=== PATIENT | male | born 1950 | race African-American/Black ===

== ENCOUNTER 2017-10-24 11:04 | Inpatient (IN) | payer MEDICARE ==
[2017-10-24] MEDS ORDERED: Heparin 5,000 UNITS/ML VIAL ONE ×4 (11:47→16:35)
[2017-10-24] MEDS ORDERED: Heparin 25,000 units/D5W 500 ML ONE (11:47)
[2017-10-24 11:57] LABS: #Basophils 0.1 thou/uL (0.0-0.2); #Eosinphils 0.1 thou/uL (0.0-0.7); #Lymphocytes 2.5 thou/uL (1.20-3.40); #Monocytes 0.4 thou/uL (0.11-0.59); #Neutrophils 5.1 thou/uL (1.40-6.50); %Basophils 0.7 % (0.0-1.0); %Eosinophils 1.3 % (0.0-10.0); %Lymphocytes 30.5 % (21.0-51.0); %Monocytes 4.7 % (0.0-10.0); %Neutrophils 62.8 % (42.0-75.0); Hemoglobin 12.8 g/dL (14.0-18.0); Mean Corpuscular HGB CONC 32.6 g/dL (32.0-36.0); Mean Corpuscular Hemoglobin 28.2 pg (27.0-31.0); Mean Corpuscular Volume 86.5 fl (80.0-94.0); Mean Platelet Volume 8.2 fL (7.4-10.4); Platelet Count 232 thou/uL (130-400); RBC Distribution Width 13.2 % (11.5-14.5); Red Blood Cell (RBC) Count 4.53 mill/uL (4.70-6.10); White Blood Cell (WBC) Count 8.2 thou/uL (4.8-10.8)
[2017-10-24 12:04] LABS: INR-International Normal Ratio 1.1; PTT 26.1 SEC (22.9-36.1); Prothrombin Time 14.3 SEC (12.0-14.7)
[2017-10-24] MEDS ORDERED: Heparin 25,000 units/D5W 500 ML IV SCH (12:15)
[2017-10-24] MEDS ORDERED: Heparin 10,000 UNITS/ 10 ML VIAL SLOW IVP SCH (12:15)
[2017-10-24 12:17] LABS: ALT (SGPT) 21 U/L (8-55); AST (SGOT) 18 U/L (5-34); Albumin 4.4 g/dL (3.4-4.8); Alkaline Phosphatase 83 U/L (40-150); Anion Gap 18 mmol/L (10-20); BUN (Urea Nitrogen) 13 mg/dL (8.4-25.7); Bilirubin, Total 1.5 mg/dL (0.2-1.2); CK (CPK) 520 U/L (30-200); Calc. Creatinine Clearance 0 mL/min (70-130); Calcium 9.6 mg/dL (7.8-10.44); Carbon Dioxide 18 mmol/L (23-31); Chloride 106 mmol/L (98-107); Estimated GFR-MDRD 86; Glucose 145 mg/dL (80-115); Potassium 3.1 mmol/L (3.5-5.1); Protein, Total 7.4 g/dL (5.8-8.1); Sodium 139 mmol/L (136-145)
[2017-10-24] MEDS ORDERED: Fentanyl 100 MCG/2 ML VIAL ONE ×2 (13:19→16:35)
[2017-10-24] MEDS ORDERED: Phenylephrine HCL 10 MG/ML VIAL ONE (13:20)
[2017-10-24] MEDS ORDERED: Protamine Sulfate 50 MG/5 ML VIAL ONE ×2 (13:36→16:35)
--- NOTE | 2017-10-24 13:48 | RAD ---
PORTABLE AP CHEST: Date: 10/24/17 HISTORY: Leg pain, chest pain. COMPARISON: 04/02/07. FINDINGS: Cardiac silhouette is magnified by projection. Pulmonary vasculature is within normal limits. The keny gs are clear. There has been no significant interval change from the prior exam. IMPRESSION: No acute cardiopulmonary process. POS: [facility]
[2017-10-24] MEDS ORDERED: CEFAZOLIN/Water 2 GM/20 ML SYRINGE ONE (13:53)
[2017-10-24] MEDS ORDERED: Glycopyrrolate 0.2 MG/ML 5 ML SYRINGE ONE (14:31)
[2017-10-24] MEDS ORDERED: Ondansetron PF 4 MG/2 ML Vial ONE (14:31)
[2017-10-24] MEDS ORDERED: Heparin 10,000 UNITS/ 10 ML VIAL ONE (14:31)
[2017-10-24] MEDS ORDERED: Lidocaine 1% PF 5 ML VIAL ONE (14:31)
[2017-10-24] MEDS ORDERED: ePHEDrine/0.9% NaCl/PF SYRINGE 50 mg/10 ml ONE (14:31)
[2017-10-24] MEDS ORDERED: PROPOFOL 200 MG/20 ML VIAL ONE (14:31)
[2017-10-24] MEDS ORDERED: Dexamethasone 20 MG/5 ML VIAL ONE (14:31)
--- NOTE | 2017-10-24 14:38 | CT ---
CTA ABDOMEN WITH CONTRAST CTA PELVIS WITH CONTRAST CTA BILATERAL LOWER EXTREMITIES WITH CONTRAST: (Computed Tomographic Angiography, abdominal aorta and bilateral iliofemoral lower extremity runoff, with contrast material, and imaging postprocessing) Date: 10/24/17 HISTORY: 67-year-old male with claudication: left lower extremity pain and absence of left pedal pulse. Dr. Cabrales reported the findings by telephone to Dr. Chris Laughlin at 1254 hours on 10/24/17. TECHNIQUE: IV injection of iodinated contrast: 100 mL Isovue 370 Arterial phase bolus chasing technique. Scan acquisition from top of abdominal aorta to bilateral ankles. 3D MIP reconstructions. FINDINGS: There is absence of contrast opacification of the left popliteal artery, and all of its branches; the re is nonvisualization of the left tibioperoneal trunk, anterior tibial artery, posterior tibial winston ry, peroneal artery, and dorsalis pedis artery. The contralateral right popliteal, tibioperoneal trunk, anterior tibial artery, posterior tibial winston ry, peroneal artery, and dorsalis pedis artery are patent, with contrast visualized in their lumen. There are scattered mild focal atherosclerotic calcifications in the arteries of bilateral lower extr emities. There is absence of contrast opacification of essentially the entire left common iliac artery, consis tent with thrombosis. There is contrast opacification of the left external iliac artery and left inte rnal iliac artery. Perhaps these are supplied via retrograde flow from the left inferior epigastric a rtery. There is atherosclerotic calcification of the bilateral common, internal, and external iliac arteries , up to a moderate degree. There is multifocal severe stenosis of the right internal iliac artery, an d at least one focus of severe stenosis in the contralateral left mid to distal internal iliac artery . Atherosclerotic calcification of abdominal aorta without aneurysm. No evidence of high grade stenosis of bilateral renal arteries, superior mesenteric artery, or celiac artery. 2 cm left adrenal nodule is stable since prior CT of 04/14/07, representing a benign adenoma. The rig ht adrenal gland is mildly thickened, and is also stable, also consistent with a tiny benign adrenal adenoma. Within the limitations of an eshoxwgl-kejbi-tbrc scan, no gross abnormality is identified in volving bilateral kidneys, pancreas, liver, or spleen. No small bowel dilation. Normal appendix. No s igns of acute colonic diverticulitis. Several diverticula in the sigmoid colon. No ascites or pneumop eritoneum. Enlarged prostate indents the bladder base. Mildly thickened bladder ann, similar to juli or study. No evidence of fracture, in particular the left lower extremity. IMPRESSION: 1. 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 2. The left external iliac artery is patent, probably via retrograde flow from the left inferior epi gastric artery. 3. Occlusion of the left popliteal artery and all of its branches throughout the rest of the left le g and left foot. It is presumed that this is from thromboembolism originating from the left common il iac artery thrombus. 4. Generalized atherosclerosis. 5. multifocal severe stenoses of the bilateral internal iliac arteries, right worse than left. 6. Evidence for benign prostatic hyperplasia (BPH). CODE CR. jn[] POS: [facility]
[2017-10-24] MEDS ORDERED: Midazolam HCl 2 mg/2 ml Vial ONE ×2 (15:14→15:15)
[2017-10-24] MEDS ORDERED: Albumin 5% 500 ML ONE (15:17)
--- NOTE | 2017-10-24 15:57 | HP ---
HISTORY OF PRESENT ILLNESS: This is a 67-year-old gentleman previously in good health with acute ons et of pain in his left lower leg about 10:30 this morning when he got out of the shower. He presente d to the emergency room where he was appropriately evaluated and begun on heparin. CT angiogram has been reviewed and shows chronic occlusion of the left common iliac artery, high grade stenosis of the right common iliac artery, occlusion of the left popliteal artery with no distal visualization, alth ough he does have some calcification in the distal popliteal proximal tibial segments. The right leg has atherosclerosis of the distal popliteal and anterior tibial artery with 3-vessel runoff. He quispe s admit to some hip discomfort with ambulation, although admittedly he does not really walk any dista nce. He is able to walk around the grocery store, but this is with frequent stops. He denies any hi story of hypertension or dyslipidemia. He has a longstanding smoking history although quit 2 years a go. SOCIAL HISTORY: He is , accompanied by his . 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 PAST SURGICAL HISTORY: Includes shoulder surgery. MEDICATION: Include terazosin 5 b.i.d. ALLERGIES: CODEINE. PHYSICAL EXAMINATION: GENERAL: Black gentleman in no distress. VITAL SIGNS: Heart rate of 100 and blood pressure 160/68. NECK: No carotid bruits. LUNGS: Clear to auscultation anteriorly. CARDIAC: Tachycardia. No murmurs. ABDOMEN: Obese, nontender. No bruits. EXTREMITIES: He has a palpable femoral pulse on the right and a good Doppler signal in his left femo ral artery. He has a palpable right dorsalis pedis pulse. He has no Doppler signals in his left christopher t. He has no motor function in his foot on the left and no sensation and some discomfort as well due to pain in his left lower leg. PLAN: Plan at this time is for exploration of the popliteal artery, attempted embolectomy. At this time, I do not think we will try and intervene on his iliac artery. I do not know if this is the herson rce of his popliteal artery occlusion, but would be hesitant to try and cross and stent this lesion i n the phase of his acutely ischemic leg already with significant neurologic deterioration. If need b e, a limited lower extremity bypass could be considered. I have gone over the situation with the aissatou ronquillo and his including the possible need for amputation if revascularization is not possible. REVIEW OF SYSTEMS: Patient denies any chest pain or dyspnea. He does have family physician, Dr. Kenneth lim, who checks his PSA, but has had no prior cardiac evaluations in the past.
[2017-10-24] MEDS ORDERED: Heparin 10,000 UNITS/1 ML VIAL 30,000 UNITS in Sodium Chloride 0.9% 1,000 ML FS SCH (16:15)
[2017-10-24] MEDS ORDERED: ISOVUE-370 76%-LOCM 1 ML ONE (16:46)
[2017-10-24] MEDS ORDERED: Rocuronium Bromide 50 MG/5 ML VIAL ONE (16:46)
[2017-10-24] MEDS ORDERED: Heparin 10,000 UNITS/1 ML VIAL ONE (17:04)
[2017-10-24] MEDS ORDERED: Sodium Bicarb 50 MEQ/50 ML Abboject 8.4% SYRINGE ONE (17:38)
[2017-10-24] MEDS ORDERED: hydrALAZINE 20 MG/ML VIAL ONE (18:53)
[2017-10-24] MEDS ORDERED: Ondansetron PF 4 MG/2 ML Vial IVP PRN (19:36)
[2017-10-24] MEDS ORDERED: hydrALAZINE 20 MG/ML VIAL SLOW IVP PRN (19:36)
[2017-10-24] MEDS ORDERED: Ketorolac Tromethamine 30 MG/ML VIAL IVP PRN (19:36)
[2017-10-24] MEDS ORDERED: Fentanyl 100 MCG/2 ML VIAL SLOW IVP PRN ×2 (19:36)
[2017-10-24] MEDS ORDERED: Metoprolol Tartrate 5 MG/5 ML VIAL IVP SCH (19:45)
[2017-10-24] MEDS: D5 1/2 NS w/20 mEq KCL 1,000 ML IV SCH (19:51)
[2017-10-24] MEDS ORDERED: Zolpidem Tartrate 5 MG TAB PO PRN (19:54)
[2017-10-24] MEDS ORDERED: Promethazine HCl 25 MG/ML VIAL IM PRN (19:54)
[2017-10-24] MEDS ORDERED: diphenhydrAMINE 50 MG/ML VIAL IM PRN (19:54)
[2017-10-24] MEDS ORDERED: Fentanyl 5000 MCG/250 ML CADD IVPB PRN (19:54)
[2017-10-24] MEDS ORDERED: diphenhydrAMINE 25 MG CAP PO PRN (19:54)
[2017-10-24] MEDS ORDERED: Naloxone HCl 0.4 mg/ml Vial IV PRN (19:54)
[2017-10-24] MEDS ORDERED: diphenhydrAMINE 50 MG/ML VIAL IVP PRN (19:54)
[2017-10-24 20:00] LABS: #Lymphocytes 1.4 thou/uL (1.20-3.40); #Monocytes 0.6 thou/uL (0.11-0.59); #Neutrophils 11.8 thou/uL (1.40-6.50); %Basophils 0.1 % (0.0-1.0); %Eosinophils 0.1 % (0.0-10.0); %Lymphocytes 10.2 % (21.0-51.0); %Neutrophils 85.5 % (42.0-75.0); Hemoglobin 11.2 g/dL (14.0-18.0); Mean Corpuscular HGB CONC 33.2 g/dL (32.0-36.0); Mean Corpuscular Hemoglobin 28.4 pg (27.0-31.0); Mean Corpuscular Volume 85.4 fl (80.0-94.0); Mean Platelet Volume 7.8 fL (7.4-10.4); Platelet Count 198 thou/uL (130-400); RBC Distribution Width 13.1 % (11.5-14.5); Red Blood Cell (RBC) Count 3.95 mill/uL (4.70-6.10); White Blood Cell (WBC) Count 13.8 thou/uL (4.8-10.8)
[2017-10-24] MEDS ORDERED: Communication Order-Pharmacy FS SCH (20:00)
--- NOTE | 2017-10-24 20:17 | RAD ---
PORTABLE CHEST: 10/24/17 HISTORY: Postop. NG tube placement. Heart size is enlarged. NG tube is present. The tip is in the distal esophagus and needs to be advanced 3 to 4 inches. The lungs are clear of infiltrates. IMPRESSION: NG tube with the tip at the GE junction. Needs to be advanced several inches. POS: [facility]
[2017-10-24 20:20] LABS: Anion Gap 15 mmol/L (10-20); BUN (Urea Nitrogen) 10 mg/dL (8.4-25.7); Calc. Creatinine Clearance 0 mL/min (70-130); Calcium 8.7 mg/dL (7.8-10.44); Carbon Dioxide 20 mmol/L (23-31); Chloride 109 mmol/L (98-107); Estimated GFR-MDRD Greater than 90; Glucose 172 mg/dL (80-115); Potassium 3.6 mmol/L (3.5-5.1); Sodium 140 mmol/L (136-145)
--- NOTE | 2017-10-24 20:25 | OP ---
PREOPERATIVE DIAGNOSES: Embolus to left popliteal artery, occlusion of left common iliac artery, hig h grade stenosis, right common iliac artery. PROCEDURE: 1. Left popliteal artery exploration and embolectomy. 2. Right femoral artery exploration. 3. Angiograms left iliac artery. 4. Aorta by external iliac artery bypass. SURGEON: Dr. Jeremy Rogers. LEARNING AND DEVELOPMENT ADMINISTRATOR: Dr. Hamm. TRANSFUSION: None. ESTIMATED BLOOD LOSS: 250 mL. PROCEDURE IN DETAIL: After adequate anesthesia had been obtained, the patient was prepped and draped . Incision was made medial and just distal to the knee on the left. Popliteal artery was exposed an d the patient was heparinized. Loops were placed around the popliteal artery. A transverse incision made and thrombus was encountered. A #3 Bob catheter was passed proximally and thrombus was rem carole with good forward flow, but not really pulsatile. Several other passes were negative for furthe r thrombus. Distally revealed some thrombus with some slow backbleeding and then multiple other pass es demonstrated no further thrombus. Arteriotomy was closed with 5-0 Prolene suture, following which the Doppler signals poor and as expected it was not pulsatile, given the common iliac artery occlusi on. Vessel was reopened, repeat thrombectomy performed and no further thrombus was removed and the a rtery was then closed. The incision was then closed. Left common femoral artery was exposed for ant icipated embolectomy of the left common iliac artery and possible stenting. Right femoral artery pun cture was then carried out. A 7 [place] sheath was advanced. Wire would initially not enter the aort a and retrograde angiography demonstrated a subtotal occlusion of the proximal external iliac artery. A Glidewire was advanced with the assistance of a glide catheter; however, it appeared to be subint imal in the aorta and multiple attempts to pass the wire into the true lumen were unsuccessful. At t hat time, it was felt that an aortobifemoral would be needed. I was hesitant to do an embolectomy fr om the left femoral artery without having a balloon occlusion of the right iliac and for this reason, a left groin incision was closed. The patient was then prepped and draped in the abdomen and midlin e abdominal incision was carried out. Bowel was rotated to the right, following which the distal aor ta was mobilized with a bluish stent from the dissection plane. Right common and external iliac winston ry was isolated avoiding the ureter and then the left external iliac artery was isolated distally in the pelvis. After heparinization, clamps were applied, the aorta divided distally and the distal end oversewn with a double layer of 3-0 Prolene suture and then additional sutures as needed. A 14 x 7 graft was anastomosed in an end-to-end fashion to the distal aorta following which was passed through a tunnel deep to the ureter on the left and then anastomosed in an end-to-side fashion on to the ext ernal iliac artery. Following moravian of flow on the right external iliac artery, the left exter nal iliac artery was incised and its final anastomosis completed. Protamine was given to reverse the heparin, reperitonealization was carried out with Vicryl suture and the bowel was returned to the ab domen. Fascia was then closed with a double stranded #1 PDS running suture. Subcutaneous tissue and skin were closed in layers. The patient had no evidence of compartment syndrome in the left calf at the conclusion of the procedure and had Doppler signals in both feet. Both feet were pink and warm.
[2017-10-24] MEDS: fentaNYL Citrate/PF 2,000 MCG in Sodium Chloride 0.9% 60 ML IV PRN (20:58)
[2017-10-24] MEDS: CEFAZOLIN/Water 2 GM/20 ML SYRINGE SLOW IVP SCH (21:13)
[2017-10-24 22:51] VITALS: BMI 34.7
[2017-10-25] MEDS: D5 1/2 NS w/20 mEq KCL 1,000 ML IV SCH ×3 (02:44→14:14)
[2017-10-25 04:20] LABS: #Basophils 0.1 thou/uL (0.0-0.2); #Lymphocytes 0.9 thou/uL (1.20-3.40); #Monocytes 0.3 thou/uL (0.11-0.59); #Neutrophils 9.7 thou/uL (1.40-6.50); %Basophils 0.5 % (0.0-1.0); %Eosinophils 0.1 % (0.0-10.0); %Lymphocytes 7.8 % (21.0-51.0); %Monocytes 3.2 % (0.0-10.0); %Neutrophils 88.5 % (42.0-75.0); Hemoglobin 10.7 g/dL (14.0-18.0); Mean Corpuscular HGB CONC 33.7 g/dL (32.0-36.0); Mean Corpuscular Hemoglobin 29.1 pg (27.0-31.0); Mean Corpuscular Volume 86.4 fl (80.0-94.0); Mean Platelet Volume 8.2 fL (7.4-10.4); Platelet Count 198 thou/uL (130-400); RBC Distribution Width 13.2 % (11.5-14.5); Red Blood Cell (RBC) Count 3.67 mill/uL (4.70-6.10); White Blood Cell (WBC) Count 10.9 thou/uL (4.8-10.8)
[2017-10-25 04:41] LABS: Anion Gap 13 mmol/L (10-20); BUN (Urea Nitrogen) 11 mg/dL (8.4-25.7); Calc. Creatinine Clearance 102 mL/min (70-130); Calcium 8.5 mg/dL (7.8-10.44); Carbon Dioxide 22 mmol/L (23-31); Chloride 108 mmol/L (98-107); Estimated GFR-MDRD Greater than 90; Glucose 151 mg/dL (80-115); Potassium 3.8 mmol/L (3.5-5.1); Sodium 139 mmol/L (136-145)
[2017-10-25] MEDS: Vancomycin HCl 1 GM in Premix Bag 1 BAG IVPB SCH ×2 (05:52→19:26)
[2017-10-25] MEDS: CEFAZOLIN/Water 2 GM/20 ML SYRINGE SLOW IVP SCH ×2 (05:53→14:14)
[2017-10-25] MEDS ORDERED: Ketorolac Tromethamine 30 MG/ML VIAL IVP PRN (07:32)
[2017-10-25] MEDS: Enoxaparin Sodium 40 MG/0.4 ML SYRINGE SC SCH (09:21)
--- NOTE | 2017-10-25 09:46 | RAD ---
PORTABLE AP CHEST: Date: 10/25/17 HISTORY: CHF. COMPARISON: 10/24/17. FINDINGS: The nasogastric tube has been removed. There has been interval development of parenchymal opacity see n at the right lung base with question of air space opacity also at the left lung base, worrisome for developing areas of pneumonitis/pneumonia. Cardiac silhouette is magnified by projection, but is sta ble in size. Pulmonary vasculature is within normal limits. IMPRESSION: Interval development of new air space opacity at the right lung base with questionable air space dens ity at the left lung base which could be related to either aspiration pneumonitis or developing pneum onia. Follow-up to resolution is recommended. POS: [facility]
--- NOTE | 2017-10-25 10:25 | CON ---
DATE OF CONSULTATION: 10/25/2017 REASON FOR CONSULTATION: Nonsustained ventricular tachycardia. HISTORY OF PRESENT ILLNESS: Mr. Floyd came to the hospital for leg pain. He was found to have an acute occlusion of the left popliteal artery. He was taken emergently to the catheterization lab where eventually a decision was made to do an aortobifemoral bypass. He did well. He has been in the ICU since then, and on telemetry, he was found to have a 10-beat run of nonsustained ventricular tachycardia. This was asymptomatic wide-complex rhythm. He denies any chest pain, tightness, or pressure. No shortness of breath. He is a former smoker, but quit about 2 years ago. PAST MEDICAL HISTORY: BPH. SOCIAL HISTORY: Former smoker, quit 2 years ago. No alcohol or drugs. 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 FAMILY HISTORY: Noncontributory. PAST SURGICAL HISTORY: As above, otherwise none. REVIEW OF SYSTEMS: A 12-point review of systems was done and is all negative unless stated in the history of present illness. OUTPATIENT MEDICATIONS: Terazosin. ALLERGIES: No known drug allergies. PHYSICAL EXAMINATION: VITAL SIGNS: Temperature 97.8, pulse 91, respiratory rate 24, satting 92% on 2 liters, blood pressure 118/59. GENERAL: Awake, alert, oriented x3, in no distress. HEENT: Normocephalic, atraumatic. NECK: Supple. LUNGS: Clear. CARDIOVASCULAR: S1 and S2, no S3, S4, no murmurs and no rubs. ABDOMEN: Soft, positive bowel sounds. EXTREMITIES: A 1+ edema bilaterally. SKIN: Warm and dry. LABORATORY WORK: Reviewed. Sodium 139; potassium was 3.1 on admission, up to 3.8; anion gap of 13; calcium was normal; total bilirubin 1.5; AST, ALT, and alkaline phosphatase were normal; CK 520; albumin 4.4. EKG was reviewed. Telemetry was reviewed. ASSESSMENT AND PLAN: 1. Nonsustained ventricular tachycardia. We will get an echocardiogram to evaluate left ventricular function and valvular structures. He will need further risk stratification for ischemia as an outpatient when he is over this acute setting. Otherwise, further recommendations per results of echocardiogram. Continue to keep electrolytes, specifically potassium above 3.5. Will start low dose BB. MTDD
[2017-10-25] MEDS: Metoprolol Tartrate 25 MG TAB PO SCH ×2 (15:12→21:25)
--- NOTE | 2017-10-25 18:04 | CON ---
DATE OF CONSULTATION: 10/25/2017 HISTORY OF PRESENT ILLNESS: Steve Floyd is a 67-year-old pleasant gentleman who sees [facility] physician, Dr. Paris, for routine care, presented yesterday with about 10-12 hour history of left l eg pain, became so bad that he was unable to walk. Seen in the ER, started on IV heparin. CT angiogram was done which shows chronic occlusion of the le ft common iliac artery with high grade stenosis and right common iliac artery. He is a former smoker, quit smoking 2 years ago about a pack a day. Previous history of pneumonia. No history of TB or asthma. PAST MEDICAL HISTORY: Pertinent for some arthritis, no history of diabetes, hypertension. PAST SURGICAL HISTORY: Left shoulder surgery. CHRONIC MEDICATION: Terazosin 5 twice a day. 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 Alcohol none. Tobacco as noted. FAMILY HISTORY: Unremarkable. ALLERGIES: CODEINE. REVIEW OF SYSTEMS: Otherwise, 10-point negative. PHYSICAL EXAMINATION: GENERAL: No distress. Leg pain is better. VITAL SIGNS: Blood pressure 129/59, sats are 93 on 4 liters, respiration rate 18, pulse 80. CHEST: Decreased breath sounds, bilateral rhonchi. CARDIAC: Normal S1-S2. ABDOMEN: Soft. No masses. LABORATORY: White count 10,000, H&H 10 and 31, platelet count 198. Electrolytes are normal. X-ray shows questionable left-sided infiltrate. IMPRESSION: Left popliteal artery exploration with embolectomy, right femoral artery exploration ang iogram, tobacco abuse. Abdominal x-ray cardiac arrhythmias. PLAN: X-ray is being ordered. Continue neb treatments, supportive care, antibiotics per Surgery. W e will follow while in the ICU. Please note this 70 minutes of my consultation time of which 50 percent spent direct patient care at the bedside.
[2017-10-26 04:31] LABS: #Lymphocytes 2.4 thou/uL (1.20-3.40); #Monocytes 0.8 thou/uL (0.11-0.59); #Neutrophils 7.2 thou/uL (1.40-6.50); %Basophils 0.2 % (0.0-1.0); %Eosinophils 0.1 % (0.0-10.0); %Lymphocytes 22.8 % (21.0-51.0); %Monocytes 7.5 % (0.0-10.0); %Neutrophils 69.5 % (42.0-75.0); Hemoglobin 10.5 g/dL (14.0-18.0); Mean Corpuscular HGB CONC 33.2 g/dL (32.0-36.0); Mean Corpuscular Hemoglobin 28.7 pg (27.0-31.0); Mean Corpuscular Volume 86.4 fl (80.0-94.0); Mean Platelet Volume 8.7 fL (7.4-10.4); Platelet Count 180 thou/uL (130-400); RBC Distribution Width 13.3 % (11.5-14.5); Red Blood Cell (RBC) Count 3.66 mill/uL (4.70-6.10); White Blood Cell (WBC) Count 10.4 thou/uL (4.8-10.8)
[2017-10-26] MEDS: D5 1/2 NS w/20 mEq KCL 1,000 ML IV SCH (04:34)
[2017-10-26 04:47] LABS: Anion Gap 11 mmol/L (10-20); BUN (Urea Nitrogen) 14 mg/dL (8.4-25.7); Calc. Creatinine Clearance 114 mL/min (70-130); Calcium 8.5 mg/dL (7.8-10.44); Carbon Dioxide 24 mmol/L (23-31); Chloride 107 mmol/L (98-107); Estimated GFR-MDRD Greater than 90; Glucose 111 mg/dL (80-115); Potassium 3.8 mmol/L (3.5-5.1); Sodium 138 mmol/L (136-145)
[2017-10-26] MEDS: Metoprolol Tartrate 25 MG TAB PO SCH (07:25)
[2017-10-26] MEDS: Enoxaparin Sodium 40 MG/0.4 ML SYRINGE SC SCH (07:25)
--- NOTE | 2017-10-26 08:56 | PRG ---
DATE OF SERVICE: 10/26/2017 Mr. Floyd is doing well this morning. No shortness of breath. He is having incisional abdominal pain, but no shortness of breath. PHYSICAL EXAMINATION: VITAL SIGNS: Blood pressure 190/87, sats 100%, respirations 18, pulse 80. CHEST: Decreased breath sounds, no wheezing. CARDIAC: Normal S1. ABDOMEN: Soft. No masses. LABORATORY: White count 10,000, H&H 10 and 31. Electrolytes are normal. IMPRESSION: 1. Severe peripheral vascular disease, status post surgical intervention for ischemic left leg. 2. Former history of tobacco abuse. 3. Abnormal x-ray. PLAN: Continue PT, neb treatments, supportive care. I will follow.
[2017-10-26] MEDS ORDERED: Terazosin HCl 5 MG CAP PO SCH (14:15)
[2017-10-26] MEDS: Ondansetron PF 4 MG/2 ML Vial IVP PRN ×2 (15:12→21:04)
--- NOTE | 2017-10-26 16:47 | PDOC.CTH ---
Cardiology Progress Note - Subjective No new issues. He is still sore from his abdominal wound from surgery. - Objective Vital Signs Temp Pulse Pulse Pulse Resp BP BP 10/26/17 16:00 99.5 F 10/26/17 11:58 99.1 F 10/26/17 08:46 97 119 H 145/74 H 144/75 H 10/26/17 07:09 98.2 F 84 14 10/26/17 07:00 98.2 F Pulse Ox Pulse Ox Pulse Ox 10/26/17 16:00 10/26/17 11:58 10/26/17 08:46 100 99 10/26/17 07:09 94 L 10/26/17 07:00 Weight 215 lb 9.793 oz 10/25/17 10/26/17 10/27/17 06:59 06:59 06:59 Intake Total 1584 985 113 Output Total 1000 1434 1168 Balance 584 -547 -1053 - Physical Examination General/Neuro: alert & oriented x3, NAD Neck: no JVD present Lungs: unlabored respirations Heart: RRR Abdomen: NT/ND Extremities: + edema B (1+) - Telemetry Telemetry Rhythm: NSR, PVC's - Labs Result Diagrams: 10/26/17 03:35 10/26/17 03:35 - Assessment/Plan 1. Non sustained VT 2. LV dysfunction with inferior wall hypokinesis suggestive of CAD. EF at 40-45% 3. PVD. 4. Tobacco abuse 5. s/p aorto bifemoral bypass. PLAN: - Continue BB. - Will need risk stratification with a LHC in the future. Currently he needs to get over his abdominal surgery first. - Will start ACEI
[2017-10-26] MEDS: Amiodarone HCl 450 MG, Admixture Fee 1 EACH in Dextrose 5% in Water 250 ML IVPB SCH (16:53)
[2017-10-26] MEDS: Terazosin HCl 5 MG CAP PO SCH (20:01)
[2017-10-26] MEDS: Atorvastatin Calcium 20 MG TAB PO SCH (20:02)
[2017-10-27] MEDS: Amiodarone HCl 450 MG, Admixture Fee 1 EACH in Dextrose 5% in Water 250 ML IVPB SCH ×2 (01:48→17:19)
--- NOTE | 2017-10-27 08:11 | PRG ---
DATE OF SERVICE: 10/27/2017 This morning he is awake, alert, responsive. He is still having abdominal pain, but no shortness of breath. PHYSICAL EXAMINATION: VITAL SIGNS: Blood pressure is 170/61, pulse 87%, respirations 18. CHEST: No wheezing. CARDIAC: Normal S1, S2, no gallops. IMPRESSION: 1. Status post emergency surgery for ischemic left leg. 2. Tobacco abuse. He had a bifemoral bypass. Continue PT and supportive care. Ambulation. I will follow.
[2017-10-27] MEDS: Ondansetron PF 4 MG/2 ML Vial IVP PRN (08:54)
[2017-10-27] MEDS: Enoxaparin Sodium 40 MG/0.4 ML SYRINGE SC SCH (08:58)
[2017-10-27] MEDS: Lisinopril 2.5 MG TAB PO SCH (08:58)
[2017-10-27] MEDS: Terazosin HCl 5 MG CAP PO SCH ×2 (08:59→21:17)
[2017-10-27] MEDS: Carvedilol 3.125 MG TAB PO SCH ×2 (08:59→17:19)
[2017-10-27] MEDS: Atorvastatin Calcium 20 MG TAB PO SCH (21:14)
--- NOTE | 2017-10-27 23:08 | PDOC.CTH ---
Cardiology Progress Note - Subjective Went into afl/fib/flutter earlier today. Rate controlled normal BP. - Objective Vital Signs Temp Pulse Pulse Pulse Resp BP BP 10/27/17 18:35 98.1 F 66 18 10/27/17 11:40 81 75 126/83 139/86 BP Pulse Ox Pulse Ox Pulse Ox 10/27/17 18:35 120/80 96 10/27/17 11:40 100 98 Weight 215 lb 9.793 oz 10/26/17 10/27/17 10/28/17 06:59 06:59 06:59 Intake Total 985 1604 272 Output Total 1434 1468 700 Balance -449 136 -428 - Physical Examination General/Neuro: alert & oriented x3, NAD Neck: no JVD present Lungs: unlabored respirations Heart: other: (Irreg) Abdomen: NT/ND Extremities: other: (no edema) - Telemetry Telemetry Rhythm: A flutter - Labs Result Diagrams: 10/26/17 03:35 10/26/17 03:35 - Assessment/Plan 1. Non sustained VT 2. LV dysfunction with inferior wall hypokinesis suggestive of CAD. EF at 40-45% 3. PVD. 4. Tobacco abuse 5. s/p aorto bifemoral bypass. 6. Afib/flutter PLAN: - Continue BB and ACEI. - Will need risk stratification with a LHC in the future. Currently he needs to get over his abdominal surgery first. - Rate controlled on current regimen. - Will discuss full anticoagulation with vascular surgery.
[2017-10-28] MEDS ORDERED: traMADol HCl 50 MG TAB PO PRN (06:59)
[2017-10-28] MEDS: Enoxaparin Sodium 40 MG/0.4 ML SYRINGE SC SCH (08:51)
[2017-10-28] MEDS: Carvedilol 3.125 MG TAB PO SCH ×2 (08:51→17:43)
[2017-10-28] MEDS: Lisinopril 2.5 MG TAB PO SCH (08:51)
[2017-10-28] MEDS: Terazosin HCl 5 MG CAP PO SCH ×2 (08:51→23:42)
[2017-10-28] MEDS: Amiodarone HCl 450 MG, Admixture Fee 1 EACH in Dextrose 5% in Water 250 ML IVPB SCH (10:48)
--- NOTE | 2017-10-28 12:11 | PRG ---
DATE OF SERVICE: 10/28/2017 SUBJECTIVE: A 67-year-old gentleman this morning with kind of low grade fever 100.5 to 99. OBJECTIVE: VITAL SIGNS: Sats are 95, respirations 16, blood pressure 130/60. CHEST: Chest reveals decreased breath sounds, no wheezing. CARDIAC: Normal S1 and S2, no gallops. Status post left popliteal artery exploration embolectomy, right femoral artery exploration. PLAN: He is off all antibiotics. May reculture if his fever persists. Probably postop. He is on a miodarone for his SVT. We will follow.
[2017-10-28] MEDS: Acetaminophen 325 MG TAB PO PRN ×2 (13:44→23:46)
--- NOTE | 2017-10-28 18:30 | PDOC.CTH ---
Cardiology Progress Note - Subjective He is doing well. He converted to sinus rhythm earlier today. - Objective Vital Signs Temp Pulse Pulse Pulse Resp BP BP 10/28/17 16:45 98.0 F 75 16 10/28/17 15:13 83 79 133/61 10/28/17 12:05 99.3 F 777 H 17 10/28/17 08:56 97.8 F 52 L 16 10/28/17 08:51 81 125/60 10/28/17 08:22 99.6 F 10/28/17 07:30 100.5 F H 81 16 10/28/17 07:27 100.5 F H 81 16 BP BP Pulse Ox 10/28/17 16:45 120/56 L 97 10/28/17 15:13 129/62 10/28/17 12:05 121/58 L 95 10/28/17 08:56 120/56 L 99 10/28/17 08:51 10/28/17 08:22 10/28/17 07:30 95 10/28/17 07:27 130/66 95 Weight 215 lb 9.793 oz 10/27/17 10/28/17 10/29/17 06:59 06:59 06:59 Intake Total 1604 272 Output Total 1468 700 Balance 136 -428 - Physical Examination General/Neuro: alert & oriented x3, NAD Neck: no JVD present Lungs: unlabored respirations Heart: RRR Abdomen: NT/ND Extremities: + edema B (1+) - Telemetry Telemetry Rhythm: NSR - Labs Result Diagrams: 10/26/17 03:35 10/26/17 03:35 - Assessment/Plan 1. Non sustained VT 2. LV dysfunction with inferior wall hypokinesis suggestive of CAD. EF at 40-45% 3. PVD. 4. Tobacco abuse 5. s/p aorto bifemoral bypass. 6. Afib/flutter PLAN: - Continue BB and ACEI. - Will need risk stratification with a LHC in the future. Currently he needs to get over his abdominal surgery first. - Current in sinus. Will switch amiodarone to PO. - I spoke with Dr Rogers and it should be safe from surgical standpoint to start full anticoagulation. Will start Eliquis this evening.
[2017-10-28] MEDS: Apixaban 5 MG TAB PO SCH (23:41)
[2017-10-28] MEDS: Amiodarone 200 MG TAB PO SCH (23:41)
[2017-10-28] MEDS: Atorvastatin Calcium 20 MG TAB PO SCH (23:42)
[2017-10-29] MEDS: fentaNYL Citrate/PF 2,000 MCG in Sodium Chloride 0.9% 60 ML IV PRN (02:00)
[2017-10-29 07:57] VITALS: BP 119/65; TEMP 98.5
[2017-10-29] MEDS: Amiodarone 200 MG TAB PO SCH (08:42)
[2017-10-29] MEDS: Apixaban 5 MG TAB PO SCH (08:42)
[2017-10-29] MEDS: Lisinopril 2.5 MG TAB PO SCH (08:42)
[2017-10-29] MEDS: Carvedilol 3.125 MG TAB PO SCH (08:43)
[2017-10-29] MEDS: Terazosin HCl 5 MG CAP PO SCH (08:43)
--- NOTE | 2017-10-29 12:55 | PDOC.CTH ---
Cardiology Progress Note - Subjective He is doing very well. He has tolerate Eliquis without issues. First dose last night. - Objective Vital Signs Temp Pulse Resp BP BP Pulse Ox 10/29/17 08:42 71 119/65 10/29/17 07:15 98.5 F 71 18 119/65 96 10/29/17 04:00 97.8 F 70 18 100/57 L 94 L Weight 215 lb 9.793 oz 10/28/17 10/29/17 10/30/17 06:59 06:59 06:59 Intake Total 272 1913 360 Output Total 700 750 Balance -428 1913 -390 - Physical Examination General/Neuro: alert & oriented x3, NAD Neck: no JVD present Lungs: CTA, unlabored respirations Heart: RRR Abdomen: NT/ND Extremities: + edema B (trace) - Telemetry Telemetry Rhythm: NSR - Labs Result Diagrams: 10/26/17 03:35 10/26/17 03:35 - Assessment/Plan 1. Non sustained VT 2. LV dysfunction with inferior wall hypokinesis suggestive of CAD. EF at 40-45% 3. PVD. 4. Tobacco abuse 5. s/p aorto bifemoral bypass. 6. Afib/flutter paroxysmal. PLAN: - Continue BB and ACEI. - Will need risk stratification with a LHC in the future. Will see one month from now and will schedule at that time. - Amiodarone to PO load. - Eliquis for stroke prophylaxis. - May discharge home. Follow up in 1 month.
--- NOTE | 2017-10-29 12:57 | DIS ---
HOSPITAL COURSE: This is a 67-year-old gentleman who presented with the acute onset of severe left l ower extremity pain with paralysis of his lower leg. He was taken to the operating room where he und erwent an embolectomy of his left popliteal artery. In the process of trying to negotiate a 90% righ t common iliac artery stenosis with a wire, the vessel dissected and true lumen could not be obtained despite several attempts. It was not felt safe to do an embolectomy of the left common iliac artery , which also was occluded and for this reason, the patient underwent emergency aorta by external barbara c artery bypass. His postoperative course was notable for an echo showing an ejection fraction of 40 %. He then developed atrial fibrillation/flutter and was placed on an amiodarone drip and ultimately on Eliquis. He will be discharged today on Coreg 3.25 b.i.d., amiodarone 200 b.i.d., aspirin 81 a d ay, atorvastatin 20 a day, tramadol 100 mg for pain. He is to follow up with me in 2-3 weeks and norma obrien also follow up with Dr. Alberto. The assumption at this time is the patient had underlying common i liac artery disease bilaterally complicated by an embolus, probably from atrial fibrillation/flutter at home to his common iliac artery as well as a portion of the thrombus migrating down to the left po pliteal artery. Discharge and follow up instructions have been given.
--- NOTE | 2017-11-07 17:04 | EKG ---
Test Reason : DIAGNOSING PURPOSES Blood Pressure : / mmHG Vent. Rate : 096 BPM Atrial Rate : 096 BPM P-R Int : 262 ms QRS Dur : 090 ms QT Int : 336 ms P-R-T Axes : 053 -03 006 degrees QTc Int : 424 ms Sinus rhythm with 1st degree A-V block Low voltage QRS Cannot rule out Inferior infarct , age undetermined Abnormal ECG Confirmed by KAREN SMITH D.O. ([id number]), industrial editor [employer] ([id number]) on 11/07/2017 5:04:03 PM Referred By: Confirmed By:KAREN SMITH D.O.
[2017-12-14 11:34] LABS: Actual Bicarbonate (HCO3a) 21.8 mEq/L (22-26); Base Excess (BEa) -2.2 mEq/L (0 (+/-) 2.5); CO2 Tension 34.4 mmHg (35.0-45.0); Carboxyhemoglobin (COHb) 2.2 gm% (0.0-3.0); Hematocrit-ABG 33.5 % (42.0-52.0); Hemoglobin (Hb) 11.2 g/dL (14.0-18.0); O2 Tension (PaO2) 80.4 mmHg (80.0-100.0); pH, Arterial 7.42 (7.35-7.45)
[2017-12-14 11:35] LABS: Analyzer IN Cardio OR; Calcium, Ionized 1.2 mmol/L (1.12-1.30); Potassium - ABG Lab 3.6 mmol/L (3.70-5.30); Puncture Site ALINE
== END 2017-10-29 09:54 | disposition home or self-care (01) | DRG 271 ==
LOC: ERS 11:04 → CCU 13:36 → SDC/OP 17:00 → CCU 18:20 → 2NO 10-27 19:43
PROVIDERS: ADMIT Thoracic Surgery (Cardiothoracic Vascular Surgery); ATTEND Thoracic Surgery (Cardiothoracic Vascular Surgery)
PROC: 04CN0ZZ Extirpation of Matter from Left Popliteal Artery, Open Approach (ICD-10-PCS; principal; 2017-10-24)
PROC: 041 Lower Arteries, Bypass (ICD-10-PCS; 2017-10-24)
PROC: B41G1ZZ Fluoroscopy of Left Lower Extremity Arteries using Low Osmolar Contrast (ICD-10-PCS; 2017-10-24)
DX: I70.202 Unspecified atherosclerosis of native arteries of extremities, left leg (principal); I48.92 Unspecified atrial flutter; I47.2 Ventricular tachycardia; I74.3 Embolism and thrombosis of arteries of the lower extremities; I74.5 Embolism and thrombosis of iliac artery; Z87.891 Personal history of nicotine dependence; I48.0 Paroxysmal atrial fibrillation; N40.0 Benign prostatic hyperplasia without lower urinary tract symptoms; I70.291 Other atherosclerosis of native arteries of extremities, right leg
CPT/HCPCS: 36415; 36416; 36430; 71045; 75635; 76001; 80048; 80053; 82550; 82805; 85025; 85610; 85730; 86850; 86900; 86901; 93005; 93306; 96365; 96375; 96376; C1725; C1769; G8978-GP-CJ; G8979-GP-CH; J0282; J0360; J1100; J1265; J1644; J1650; J2001; J2250; J2270; J2370; J2405; J2704; J2720; J3010; J3370; J7050; J7070; P9016; P9045

== ENCOUNTER 2017-12-07 08:49 | Outpatient (CLI) | payer MEDICARE ==
[2017-12-07 11:00] LABS: Hemoglobin 10.9 g/dL (14.0-18.0); Mean Corpuscular HGB CONC 31.7 g/dL (32.0-36.0); Mean Corpuscular Hemoglobin 27.2 pg (27.0-31.0); Mean Corpuscular Volume 85.7 fl (80.0-94.0); Mean Platelet Volume 8.9 fL (7.4-10.4); Platelet Count 202 thou/uL (130-400); RBC Distribution Width 13.7 % (11.5-14.5); White Blood Cell (WBC) Count 4.4 thou/uL (4.8-10.8)
[2017-12-07 11:06] LABS: INR-International Normal Ratio 1.4; PTT 37.7 SEC (22.9-36.1)
[2017-12-07 11:26] LABS: ALT (SGPT) 20 U/L (8-55); AST (SGOT) 15 U/L (5-34); Albumin 4.2 g/dL (3.4-4.8); Alkaline Phosphatase 116 U/L (40-150); Anion Gap 10 mmol/L (10-20); BUN (Urea Nitrogen) 12 mg/dL (8.4-25.7); Bilirubin, Total 0.8 mg/dL (0.2-1.2); Calc. Creatinine Clearance 0 mL/min (70-130); Calcium 9.5 mg/dL (7.8-10.44); Carbon Dioxide 27 mmol/L (23-31); Cardiac Risk 4.1 (Less than 4.5); Chloride 108 mmol/L (98-107); Cholesterol 140 mg/dl (< 200 Desired); Estimated GFR-MDRD 89; Globulin 3.1 g/dL (2.4-3.5); Glucose 101 mg/dL (80-115); HDL Cholesterol 34 mg/dL (>60 Neg Risk); LDL Cholesterol, Calculated 92 mg/dL; Potassium 3.6 mmol/L (3.5-5.1); Protein, Total 7.3 g/dL (5.8-8.1); Sodium 141 mmol/L (136-145); Triglycerides 69 mg/dL (Less than 150)
== END 2017-12-07 08:50 | disposition home or self-care (01) ==
LOC: LABBT 08:49
PROVIDERS: ATTEND Internal Medicine Cardiovascular Disease
DX: Z01.818 Encounter for other preprocedural examination (principal); I42.0 Dilated cardiomyopathy
CPT/HCPCS: 80053; 80061; 85027; 85610; 85730

== ENCOUNTER → 2017-12-09 | Day surgery (SDC) | payer MEDICARE ==
[2017-12-07 09:07] VITALS: BMI 25.0
[~2017-12-09] MED LIST: Fentanyl 100 MCG/2 ML VIAL ONE; Heparin 10,000 UNITS/1 ML VIAL ONE; Iopamidol 370 76% 100 ML VIAL ONE; Lidocaine 1% (PF) 30 ML VIAL ONE; Midazolam HCl 2 mg/2 ml Vial ONE; Nitroglycerin 100MG/250ML BOT 250 ML ONE; Verapamil 5 MG/2 ML VIAL ONE
== END ==
LOC: CCL 05:33
PROVIDERS: ATTEND Internal Medicine Cardiovascular Disease
PROC: 4A023N7 Measurement of Cardiac Sampling and Pressure, Left Heart, Percutaneous Approach (ICD-10-PCS; principal; 2017-12-09)
DX: I25.10 Atherosclerotic heart disease of native coronary artery without angina pectoris (principal); I42.0 Dilated cardiomyopathy; Z88.5 Allergy status to narcotic agent; Z79.01 Long term (current) use of anticoagulants; Z79.899 Other long term (current) drug therapy
CPT/HCPCS: 93458; C1769; 99152; 99153; J1644; J2001; J2250; J3010

== ENCOUNTER 2018-02-02 08:43 | Outpatient (CLI) | payer MEDICARE | END 2018-02-02 08:44 | disposition home or self-care (01) | LOC: BICRAD 08:43 | PROVIDERS: ATTEND Internal Medicine Cardiovascular Disease | DX: I42.0 Dilated cardiomyopathy (principal); I48.0 Paroxysmal atrial fibrillation | CPT/HCPCS: 71046 ==

== ENCOUNTER 2018-09-12 09:53 | Emergency (ER) | payer MEDICARE ==
[2018-09-12 10:36] LABS: Hemoglobin 13.5 g/dL (14.0-18.0); Mean Corpuscular HGB CONC 33.1 g/dL (32.0-36.0); Mean Corpuscular Hemoglobin 27.7 pg (27.0-31.0); Mean Corpuscular Volume 83.8 fL (78.0-98.0); RBC Distribution Width 14.6 % (11.5-14.5); Red Blood Cell (RBC) Count 4.86 mill/uL (4.70-6.10); White Blood Cell (WBC) Count 12.3 thou/uL (4.8-10.8)
[2018-09-12 10:51] LABS: Mean Platelet Volume 10.7 fL (7.4-10.4); Platelet Count 235 thou/uL (130-400)
[2018-09-12 10:56] LABS: #Lymphocytes 1.6 thou/uL (1.20-3.40); #Monocytes 0.8 thou/uL (0.11-0.59); #Neutrophils 9.7 thou/uL (1.40-6.50); %Eosinophils 0.3 % (0.0-10.0); %Lymphocytes 13.1 % (21.0-51.0); %Monocytes 6.5 % (0.0-10.0); %Neutrophils 80.1 % (42.0-75.0)
[2018-09-12 11:59] LABS: ALT (SGPT) 37 U/L (8-55); AST (SGOT) 28 U/L (5-34); Alkaline Phosphatase 111 U/L (40-150); Anion Gap 16 mmol/L (10-20); BUN (Urea Nitrogen) 18 mg/dL (8.4-25.7); Bilirubin, Total 1.4 mg/dL (0.2-1.2); Calc. Creatinine Clearance 0 mL/min (70-130); Calcium 9.7 mg/dL (7.8-10.44); Carbon Dioxide 19 mmol/L (23-31); Chloride 106 mmol/L (98-107); Estimated GFR-MDRD 75; Globulin 4.3 g/dL (2.4-3.5); Glucose 118 mg/dL (80-115); Lipase 10 U/L (8-78); Potassium 3.9 mmol/L (3.5-5.1); Protein, Total 8.3 g/dL (5.8-8.1); Sodium 137 mmol/L (136-145)
[2018-09-12 12:06] LABS: Bilirubin Negative (Negative); Blood, Urine Large (Negative); Clarity TURBID (Clear); Glucose, Urine (Dipstick) Negative (Negative); Leukocyte Large (Negative); Nitrite Positive (Negative); Protein, Urine (Dipstick) 100 mg/dL (Neg-Trace); Specific Gravity, Urine 1.024 (1.002-1.036); pH, Urine 5.5 (5.0-9.0)
[2018-09-12 12:09] LABS: Bacteria/HPF 3+ HPF (None Seen); Hyaline Casts/LPF 7-10 HYALINE CAST LPF (0-3 Hyaline); RBC/HPF GREATER THAN 50-TNTC HPF (0-3); Squamous Epithelial 0-3 HPF (0-3)
[2018-09-12 12:10] LABS: Pathc Cast-AUWi Flag 3.11 (0-2.49)
[2018-09-12] MEDS ORDERED: Ondansetron PF 4 MG/2 ML Vial ONE (12:31)
[2018-09-12] MEDS ORDERED: Morphine 4 MG/ML VIAL ONE (12:33)
[2018-09-12] MEDS ORDERED: cefTRIAXone\\ROCEPHIN 2 GM VIAL ONE (12:45)
[2018-09-12] MEDS ORDERED: Acetaminophen 500 MG TAB ONE (14:00)
--- NOTE | 2018-09-12 15:59 | ULT ---
RENAL SONOGRAM: DATE: . HISTORY: Flank pain. COMPARISON: None available. FINDINGS: The kidneys demonstrate a normal sonographic appearance bilaterally without evidence of a renal mass, renal calculus, or hydronephrosis. The right kidney measures 11.8 cm x 5.5 cm with the left kidney measuring 10.4 cm x 6.2 cm. The urinary bladder is decompressed. Color flow evaluation of the urinary bladder does demonstrate a left ureteral jet. The right ureteral jet is not visualized on this exam. IMPRESSION: Normal-appearing bilateral kidneys without evidence of hydronephrosis. POS: [facility]
== END 2018-09-12 15:35 | disposition home or self-care (01) ==
LOC: ERS 09:53
DX: N12 Tubulo-interstitial nephritis, not specified as acute or chronic (principal); Z79.891 Long term (current) use of opiate analgesic; Z79.899 Other long term (current) drug therapy
CPT/HCPCS: 36415; 51798; 76770; 80053; 81003; 81015; 83690; 85025; 87040; 87077; 87086; 87149; 87186; 96365; 96375; J0696; J2270; J2405

== ENCOUNTER 2018-09-17 12:42 | Outpatient (CLI) | payer MEDICARE ==
--- NOTE | 2018-09-17 13:31 | ULT ---
SONOGRAM RIGHT AXILLA SOFT TISSUE: HISTORY: Right axillary lump. FINDINGS: Sonographic evaluation of the right axilla shows subcutaneous tissue without focal solid or cystic ma ss. No well-defined fatty mass is visible. IMPRESSION: No significant abnormalities are demonstrated. POS: [facility]
--- NOTE | 2018-09-17 15:28 | CT ---
CT ABDOMEN AND PELVIS WITHOUT CONTRAST STONE PROTOCOL: HISTORY: Abdominal pain, R10.0. COMPARISON: 10/24/2017 FINDINGS: The lung bases are clear. No pericardial effusion. Layering sludge within the gallbladder. No nephroureterolithiasis or hydroureteronephrosis. No seco ndary evidence of a recently passed stone. Aortic contour is nonaneurysmal. Small retroperitoneal and periaortic lymph nodes are present. The prostate is enlarged. There are no dilated loops of large or small bowel. No evidence for bowel obstruction. The appendix is visualized and is normal. Advanced facet arthrosis of the lower lumbar spine. IMPRESSION: 1. No nephroureterolithiasis or hydroureteronephrosis. No secondary evidence of a recently passed s tone. 2. Small retroperitoneal periaortic lymph nodes. POS: [facility]
== END 2018-09-17 12:43 | disposition home or self-care (01) ==
LOC: BICULT 12:42
PROVIDERS: ATTEND Family Medicine
DX: R10.9 Unspecified abdominal pain (principal); R22.31 Localized swelling, mass and lump, right upper limb; I89.8 Other specified noninfective disorders of lymphatic vessels and lymph nodes
CPT/HCPCS: 74176; 76999

== ENCOUNTER 2018-11-30 11:47 | Observation (INO) | payer MEDICARE ==
[~2018-11-30 11:47] MED LIST changes: -Fentanyl 100 MCG/2 ML VIAL ONE; -Heparin 10,000 UNITS/1 ML VIAL ONE; +ISOVUE-370 76%-LOCM 1 ML ONE; -Iopamidol 370 76% 100 ML VIAL ONE; -Lidocaine 1% (PF) 30 ML VIAL ONE; -Midazolam HCl 2 mg/2 ml Vial ONE; -Nitroglycerin 100MG/250ML BOT 250 ML ONE; -Verapamil 5 MG/2 ML VIAL ONE
[2018-11-30 13:11] LABS: ALT (SGPT) 22 U/L (8-55); AST (SGOT) 15 U/L (5-34); Albumin 4.3 g/dL (3.4-4.8); Alkaline Phosphatase 98 U/L (40-150); Anion Gap 14 mmol/L (10-20); BUN (Urea Nitrogen) 17 mg/dL (8.4-25.7); Bilirubin, Total 1.9 mg/dL (0.2-1.2); Calc. Creatinine Clearance 0 mL/min (70-130); Calcium 9.8 mg/dL (7.8-10.44); Carbon Dioxide 23 mmol/L (23-31); Chloride 108 mmol/L (98-107); Estimated GFR-MDRD 71; Globulin 3.1 g/dL (2.4-3.5); Glucose 107 mg/dL (80-115); Potassium 4.2 mmol/L (3.5-5.1); Protein, Total 7.4 g/dL (5.8-8.1); Sodium 141 mmol/L (136-145)
[2018-11-30 13:12] LABS: Hemoglobin 12.7 g/dL (14.0-18.0); Mean Corpuscular HGB CONC 32.3 g/dL (32.0-36.0); Mean Corpuscular Hemoglobin 27.9 pg (27.0-31.0); Mean Corpuscular Volume 86.3 fL (78.0-98.0); Mean Platelet Volume 8.4 fL (7.4-10.4); Platelet Count 227 thou/uL (130-400); RBC Distribution Width 13.9 % (11.5-14.5); Red Blood Cell (RBC) Count 4.55 mill/uL (4.70-6.10); White Blood Cell (WBC) Count 4.8 thou/uL (4.8-10.8)
[2018-11-30 13:13] LABS: Band 4 % (5-11); Eosinophils 5 % (0-10); Lymphocytes 55 % (21-51); MDiff Complete? YES; Monocytes 8 % (0-10); Neutrophil 26 % (42-75); RBC Morphology Normal; Reactive Lymphocytes 1 % (0-10)
[2018-11-30 20:36] LABS: INR-International Normal Ratio 1.2; Prothrombin Time 15.4 SEC (12.0-14.7)
[2018-11-30 20:38] LABS: D-Dimer Test 0.57 *mcg/mL (0.27-0.43)
[2018-11-30] MEDS ORDERED: Aspirin Chewable 81 MG TAB ONE (20:41)
[2018-11-30] MEDS ORDERED: Furosemide 40 MG/4 ML VIAL ONE (20:56)
--- NOTE | 2018-11-30 21:48 | CT ---
CT ANGIOGRAM CHEST WITH CONTRAST: 11/30/18 HISTORY: Chest pain. COMPARISON: Radiograph same day. TECHNIQUE: CT angiogram chest performed after the intravenous administration of contrast. 3D rendering is provid ed. There is no proximal segmental pulmonary arterial filling defect. Left atrium is markedly enlarged. H eart size is mildly enlarged. Reflux of contrast within the suprahepatic IVC and hepatic veins. Abnormally enlarged pretracheal lymph node axial image 50 measures 13 mm in short axis, A lymph node in the prevascular space measures 16 mm in short axis. There is abnormally enlarged right hilar lymph nodes measuring up to 16 mm in short axis. There is spiculated mass right upper lobe, anterior segme nt measuring 17 mm in size. There is mild right infrahilar and left hilar adenopathy. Left hilar lymp h nodes measuring up to 7 mm in short axis. Some of these lymph nodes contain calcifications. Mild at electatic changes in both lower lobes. There is a mass which is spiculated within the superior segmen t left lower lobe measuring up to 18 mm which does abut the major fissure with some retraction of th e major fissure. Mild atelectatic change both lower lobes. There is small volume right pleural effusi on. Mild fullness of the peribronchial interstitium of the hilum bilaterally may be sequela of pulmonary venous congestion. No acute osseous abnormality. No thoracic spine compression fracture. No displaced rib fracture. The right adrenal is normal. There is a mass of the left adrenal gland which is hypodense suggesting an adenoma. IMPRESSION: 1. No proximal segmental pulmonary arterial filling defect. 2. Bilateral lung masses. The first in the right upper lobe which is spiculated highly suggestiv e of malignancy. The second in the superior segment left lower lobe. There is a third smaller pulmona ry nodule which is spiculated although only measures approximately 6 mm in the left upper lobe. 3. Mediastinal adenopathy as described. Concerning for metastasis. 4. Left atrial dilatation as well as reflux with contrast in the suprahepatic IVC and hepatic ve ins. 5. Small right pleural effusion. Code LN Code T POS: [facility]
[2018-12-01 00:20] VITALS: BMI 26.1
[2018-12-01] MEDS ORDERED: Acetaminophen 325 MG TAB PO PRN (00:51)
[2018-12-01] MEDS ORDERED: Zolpidem Tartrate 5 MG TAB PO PRN (00:51)
[2018-12-01] MEDS ORDERED: Ondansetron PF 4 MG/2 ML Vial IVP PRN (00:51)
[2018-12-01 02:46] LABS: #Basophils 0.1 thou/uL (0.0-0.2); #Eosinphils 0.1 thou/uL (0.0-0.7); #Lymphocytes 1.9 thou/uL (1.20-3.40); #Monocytes 0.7 thou/uL (0.11-0.59); #Neutrophils 3.3 thou/uL (1.40-6.50); %Basophils 1.2 % (0.0-1.0); %Eosinophils 1.8 % (0.0-10.0); %Lymphocytes 31.7 % (21.0-51.0); %Monocytes 11.7 % (0.0-10.0); %Neutrophils 53.6 % (42.0-75.0); Hemoglobin 12.6 g/dL (14.0-18.0); Mean Corpuscular HGB CONC 32.5 g/dL (32.0-36.0); Mean Corpuscular Hemoglobin 28.2 pg (27.0-31.0); Mean Corpuscular Volume 86.9 fL (78.0-98.0); Mean Platelet Volume 8.5 fL (7.4-10.4); Platelet Count 217 thou/uL (130-400); RBC Distribution Width 13.8 % (11.5-14.5); Red Blood Cell (RBC) Count 4.46 mill/uL (4.70-6.10); White Blood Cell (WBC) Count 6.1 thou/uL (4.8-10.8)
[2018-12-01 03:10] LABS: Troponin I Less than 0.010 ng/mL (< 0.028)
[2018-12-01 04:47] LABS: Anion Gap 17 mmol/L (10-20); BUN (Urea Nitrogen) 19 mg/dL (8.4-25.7); Calc. Creatinine Clearance 84 mL/min (70-130); Calcium 9.9 mg/dL (7.8-10.44); Carbon Dioxide 21 mmol/L (23-31); Chloride 106 mmol/L (98-107); Estimated GFR-MDRD 84; Glucose 95 mg/dL (80-115); Potassium 3.5 mmol/L (3.5-5.1); Sodium 140 mmol/L (136-145)
[2018-12-01] MEDS ORDERED: Nitroglycerin 0.4 MG TAB (25 Tab Bottle) PO PRN (09:24)
[2018-12-01] MEDS ORDERED: Calcium Carbonate 500 MG ChewTAB PO PRN (09:28)
[2018-12-01] MEDS ORDERED: Senokot S 8.6-50 MG TAB PO PRN (09:28)
[2018-12-01] MEDS ORDERED: Furosemide 20 MG/2 ML VIAL SLOW IVP SCH (09:30)
[2018-12-01] MEDS: Losartan 25 MG TAB PO SCH (09:37)
[2018-12-01] MEDS: Terazosin HCl 5 MG CAP PO SCH ×2 (09:37→21:50)
[2018-12-01] MEDS: Aspirin Chewable 81 MG TAB PO SCH (09:38)
[2018-12-01] MEDS: Apixaban 5 MG TAB PO SCH ×2 (09:38→21:50)
--- NOTE | 2018-12-01 15:47 | HP ---
PRIMARY CARE: Dr. Ferguson. CHIEF COMPLAINT: Shortness of breath along with chest discomfort over the last 10 days duration. HISTORY OF PRESENT ILLNESS: The patient is a 68-year-old man with chronic atrial fibrillation on anticoagulation, congestive heart failure with ejection fraction 40% to 45% range, and hypertension, presented to the emergency room with shortness of breath along with cough and chest pressure over the last 10 days that is progressively getting worse. He also has associated wheezing. The cough was productive of small amount of thick mucus. He gets short of breath on walking short distances. He is unable to lie down flat. He is compliant with all of his medications including Eliquis. He was evaluated by his primary care physician, who recommended to get evaluated in the emergency room. The patient denies any sick contacts. He denies any associated nausea, vomiting, diaphoresis, or palpitations. No recent immobilization or travel reported. In the emergency room, his initial vital signs showed temperature 97.9, respirations 16, pulse of 65 with a blood pressure 137/79 with O2 saturation 100% on room air. His EKG showed atrial flutter. His chest x-ray showed right hilar prominence. CT angiogram of the chest with contrast was done in the emergency room that was negative for pulmonary embolism. He was found to have bilateral lung masses. The one in the right upper lobe is spiculated, highly suggestive of malignancy. The second lung mass was found in superior segment of the left lower lobe. There was also a spiculated third nodule measuring 6 mm in the left upper lobe along with mediastinal adenopathy. There was also small right pleural effusion. He received aspirin with 40 mg of Lasix IV in the emergency room. PAST MEDICAL HISTORY: 1. Cardiomyopathy with ejection fraction 40% to 45% in the past. 2. Chronic atrial fibrillation, on anticoagulation. 3. Benign prostatic hypertrophy. 4. Pulmonary hypertension. 5. Hypertension. 6. Dyslipidemia. 7. Peripheral vascular disease. PAST SURGICAL HISTORY: 1. Left rotator cuff repair in 2013. 2. Cardiac catheterization. 3. Aortofemoral bypass in 2018. 4. Surgical intervention for left iliac embolus. ALLERGIES: THE PATIENT IS ALLERGIC TO CODEINE. CURRENT HOME MEDICATIONS: 1. Carvedilol 3.125 mg b.i.d. 2. Eliquis 5 mg b.i.d. 3. Terazosin 5 mg b.i.d. 4. Aspirin 81 mg daily. 5. Losartan 12.5 mg daily. 6. Lipitor 20 mg at bedtime. SOCIAL HISTORY: The patient is a former smoker. He drinks alcohol socially. He currently lives at home with his family. He makes his own decision with the help of his family. He is full code. FAMILY HISTORY: Father with heart disease. Mother with hypertension and heart disease. REVIEW OF SYSTEMS: All other review of systems was reviewed and were found negative. PHYSICAL EXAMINATION: VITAL SIGNS: Temperature 97.9, respirations 16, pulse of 65, blood pressure of 137/79 with O2 saturation 100% on room air. GENERAL: A 68-year-old male, in no significant distress. Shortness of breath slightly better from IV Lasix. HEENT: Head, atraumatic and normocephalic. Sclerae anicteric. Moist mucous membrane. No oral lesion. NECK: Supple. No JVD appreciated. No carotid bruit. LUNGS: Showed diminished air entry at bilateral bases with bibasilar rales. No significant accessory muscle use. HEART: S1 and S2 present. Irregularly irregular. No rubs or gallops appreciated. 2/6 systolic murmur over the mitral area. ABDOMEN: Soft, nontender. Bowel sounds present. Healed midline scar from previous aortofemoral bypass. EXTREMITIES: No calf tenderness. There is trace to 1+ edema in bilateral lower extremity. SKIN: Warm and dry. LYMPH NODES: No palpable lymph nodes in the neck. PERIPHERAL VASCULAR: Radial pulses palpable bilaterally. MUSCULOSKELETAL: No joint swelling or tenderness. LABORATORY FINDINGS: CBC showed WBC 4.8 with hemoglobin 12.7, hematocrit 39.3, platelet 227. PT 15.4, INR 1.2. Chemistry showed sodium 140, potassium 4.2, chloride 108, bicarb 23, BUN 17, creatinine 1.23, total bilirubin 1.9. BNP 300. Troponin was negative. Cardiac catheterization in November of 2017 showed mild coronary artery disease with ejection fraction of 45% to 50%. CT angiogram of the chest by my review as discussed above. Chest x-ray by my review as discussed above. EKG by my review as discussed above. IMPRESSION: 1. Acute on chronic systolic heart failure exacerbation, ACC stage C. 2. New onset atrial flutter with 4:1 conduction block. 3. High-degree AV block. 4. Bilateral lung masses suspicious for malignancy. 5. Chronic atrial fibrillation, on anticoagulation. 6. Former smoker. 7. Hypertension. 8. Hyperlipidemia. 9. Peripheral vascular disease. 10. Benign prostatic hypertrophy. 11. Pulmonary hypertension. 12. Chronic anemia. 13. Chronic kidney disease stage 2. PLAN: The patient will be monitored on the telemetry unit. Cardiology and Electrophysiology will be consulted. We will hold beta blockers due to AV block. Continue Eliquis. Gentle diuresis. Resume losartan. Echocardiogram will be obtained. We will recheck labs in a.m. We will keep the patient n.p.o. until evaluated by Cardiology. Vital signs every 4 hourly. We will arrange a followup with Pulmonary as outpatient for bilateral lung masses. He is currently on anticoagulation for atrial fibrillation. Plan of care was discussed with the patient and family in detail. They stated understanding. Job ID: [id number]
[2018-12-01] MEDS: Potassium Chloride 20 MEQ TAB PO SCH (17:40)
--- NOTE | 2018-12-01 20:06 | CON ---
DATE OF CONSULTATION: 12/01/2018 REFERRING PHYSICIAN: Dr. Alberto. HISTORY OF PRESENT ILLNESS: I am seeing Mr. Floyd at our [facility] telemetry floor as an Electrophysiology performance consultant. His problems are: 1. Presenting atrial flutter. a. Prior history of atrial flutter/fibrillation. b. Current EKGs reveal atypical atrial flutter, likely isthmus dependent with a controlled ventricular rate. 2. Chronic systolic congestive heart failure with possible myocardial infarction in the past. a. History of reduced LVEF with 2D echo on 10/24/2018, is a 40% to 45% moderately dilated left atrium, mild mitral regurgitation, mild to moderate tricuspid regurgitation. Pulmonary artery pressures of 43 mmHg. 3. Peripheral vascular disease. a. History of peripheral embolization prompting a aortobifemoral bypass graft surgery in 11/2017. 4. History of 10-beat nonsustained ventricular tachycardia in the past. 5. Acute heart failure exacerbation fluid overload on current presentation. BNP at 300. 6. Chronic anticoagulation with Eliquis since the peripheral embolization. 7. Risk factors including prior smoking, hypertension, dyslipidemia. 8. History of pulmonary hypertension, with mild degree of pulmonary pressures at 43 mmHg. ALLERGIES: CODEINE. MEDICATIONS: At home included terazosin, apixaban 5 mg twice a day, aspirin, Lipitor, losartan, carvedilol 3.125 mg twice a day. SUBJECTIVE: Mr. Floyd is here with progressive dyspnea, which has been mostly exertional with some chest tightness sensation, that is about 10 days, getting worse. He had some wheezing. He has some cough with some mucus production as well. He had some shortness of breath on walking short distances. He was sent here to the ER by his primary care physician for evaluation. He has been diuresed and his symptoms improving. Currently, there is no PND or chest pains. No major palpitations. No fever, chills, or cough. Rest of 12-point system, otherwise unremarkable. OBJECTIVE: VITAL SIGNS: Blood pressure current 138/68, heart rate 70, respirations are 16, temperature 98.1 degrees Fahrenheit. GENERAL: Reveals an alert and oriented man, in no apparent distress. NECK: Supple. Jugular veins not distended. CHEST: Coarse without crackles. HEART: Sounds are regular to rate and rhythm. No murmur or gallop. ABDOMEN: Benign. Bowel sounds are positive. EXTREMITIES: Without edema, clubbing, or cyanosis. Pulses are adequate. NEUROLOGIC: The patient is nonfocal. MUSCULOSKELETAL: Without joint swelling or deformities. SKIN: Without rash. LABORATORY DATA: Reviewed. Revealing sodium 140, potassium 3.5, BUN is 19, creatinine is 1.06. BNP is 300. Troponin I are negative x3. White count 6.1, hemoglobin 12.6, platelet count is 217. INR is 1.2. Chest x-ray reviewed reveals prominent cardiac silhouette and increased pulmonary vasculature suggestive of fluid overload. ASSESSMENT AND PLAN: Mr. Floyd is a pleasant 68-year-old man with history of peripheral vascular disease, also myocardial infarction, reduced LVEF in the past on echocardiogram. He presented with fluid overload. His EKG revealed atrial flutter with controlled ventricular rates. The flutter morphology suggestive of isthmus dependency. He is well anticoagulated on a chronic basis since a prior peripheral embolization requiring aortofemoral bypass. I discussed the significance of atrial flutter, his condition. We detailed the lack of atrial kick, possibly contributing to his heart failure. . We discussed option of cardioversion versus ablation therapy. Also, interim options were entertained, but due to the bradycardia with pause of 3.4 seconds on monitor, they might not be the best option. Hence, the presence of isthmus dependent flutter, simple cavotricuspid isthmus ablation might be able to eliminate his atrial flutter entirely. If though, after the ablation of the cavotricuspid isthmus, additional atrial fibrillation seen he might require pulmonary venous isolation or antiarrhythmic agents to suppress this tendency. I discussed these concepts with him. He understands the option for the ablation and prefers that over further medication attempts. We discussed chance of infection, bleeding, tamponade, recurrence, stroke, and cardiac perforation. He is willing to proceed. We will schedule him for a near date. Thank you again for allowing us to participate in the care of this patient. Job ID: [id number]
[2018-12-01] MEDS: Atorvastatin Calcium 20 MG TAB PO SCH (21:50)
[2018-12-01] MEDS: Famotidine 20 MG TAB PO SCH (21:50)
[2018-12-02 05:44] LABS: #Eosinphils 0.1 thou/uL (0.0-0.7); #Lymphocytes 2.2 thou/uL (1.20-3.40); #Monocytes 0.7 thou/uL (0.11-0.59); #Neutrophils 2.6 thou/uL (1.40-6.50); %Eosinophils 1.5 % (0.0-10.0); %Lymphocytes 39.9 % (21.0-51.0); %Monocytes 12.6 % (0.0-10.0); %Neutrophils 46.1 % (42.0-75.0); Hemoglobin 13.5 g/dL (14.0-18.0); Mean Corpuscular HGB CONC 32.8 g/dL (32.0-36.0); Mean Corpuscular Hemoglobin 28.2 pg (27.0-31.0); Mean Corpuscular Volume 86.2 fL (78.0-98.0); Mean Platelet Volume 8.4 fL (7.4-10.4); Platelet Count 236 thou/uL (130-400); Red Blood Cell (RBC) Count 4.79 mill/uL (4.70-6.10); White Blood Cell (WBC) Count 5.6 thou/uL (4.8-10.8)
[2018-12-02 05:59] LABS: ALT (SGPT) 18 U/L (8-55); AST (SGOT) 14 U/L (5-34); Albumin 4.1 g/dL (3.4-4.8); Alkaline Phosphatase 100 U/L (40-150); Anion Gap 14 mmol/L (10-20); BUN (Urea Nitrogen) 21 mg/dL (8.4-25.7); Bilirubin, Total 1.3 mg/dL (0.2-1.2); Calc. Creatinine Clearance 78 mL/min (70-130); Calcium 9.7 mg/dL (7.8-10.44); Carbon Dioxide 24 mmol/L (23-31); Chloride 106 mmol/L (98-107); Estimated GFR-MDRD 80; Globulin 3.1 g/dL (2.4-3.5); Glucose 112 mg/dL (80-115); Magnesium 2.1 mg/dL (1.6-2.6); Potassium 4.1 mmol/L (3.5-5.1); Protein, Total 7.2 g/dL (5.8-8.1); Sodium 140 mmol/L (136-145)
[2018-12-02] MEDS ORDERED: PROPOFOL 200 MG/20 ML VIAL ONE (10:15)
[2018-12-02] MEDS ORDERED: Ondansetron PF 4 MG/2 ML Vial ONE (10:15)
[2018-12-02] MEDS ORDERED: Heparin 10,000 UNITS/1 ML VIAL ONE (12:36)
[2018-12-02] MEDS ORDERED: Isoproterenol 0.2 MG/1 ML AMP ONE ×2 (12:36→12:49)
[2018-12-02] MEDS ORDERED: Protamine Sulfate 50 MG/5 ML VIAL ONE (12:48)
[2018-12-02] MEDS ORDERED: Propofol 500 MG/50 ML VIAL ONE (13:20)
[2018-12-02] MEDS: Aspirin Chewable 81 MG TAB PO SCH (13:37)
[2018-12-02] MEDS: Potassium Chloride 20 MEQ TAB PO SCH ×2 (13:37→16:17)
[2018-12-02] MEDS: Apixaban 5 MG TAB PO SCH ×2 (13:37→20:33)
[2018-12-02] MEDS: Terazosin HCl 5 MG CAP PO SCH ×2 (13:38→20:33)
[2018-12-02] MEDS: Famotidine 20 MG TAB PO SCH ×2 (13:38→20:33)
[2018-12-02] MEDS: Losartan 25 MG TAB PO SCH (13:38)
[2018-12-02] MEDS: Furosemide 20 MG/2 ML VIAL SLOW IVP SCH (13:38)
--- NOTE | 2018-12-02 13:50 | PDOC.PN ---
- Subjective Encounter Start Date: 12/02/18 Encounter Start Time: 09:30 Patient seen and examined for CHF/Aflutter. No CP. SOB improving. No new complaints. No overnight events - Objective Resuscitation Status - Order Detail: 12/01/18 09:27 Resuscitation Status Routine Resuscitation Status: FULL: Full Resuscitation MAR Reviewed: Yes Vital Signs & Weight: Vital Signs (12 hours) Temp Pulse Resp BP BP Pulse Ox 12/02/18 11:41 97.8 F 67 16 135/63 96 12/02/18 07:15 97.7 F 74 16 133/60 94 L 12/02/18 04:10 69 18 110/55 L 97 Weight Weight 188 lb 11.2 oz I&O: 12/01/18 12/02/18 12/03/18 06:59 06:59 06:59 Intake Total 450 720 Balance 450 720 Result Diagrams: 12/02/18 05:14 12/02/18 05:14 Additional Labs: Laboratory Tests 11/30/18 12/02/18 12:34 05:14 Total Bilirubin 1.9 H 1.3 H EKG Reviewed by me: Yes (Tele - A flutter) Phys Exam - Physical Examination Constitutional: NAD Neck: no JVD Respiratory: no wheezing few rhonchi and rales at bases, No accessory muscle use Cardiovascular: RRR, no rub no heaves/pulsations Gastrointestinal: soft, non-tender, no distention, positive bowel sounds Musculoskeletal: edema present (trace) Neurological: non-focal, normal sensation, moves all 4 limbs Psychiatric: normal affect, A&O x 3 Skin: no rash Dx/Plan - Plan IMPRESSION: 1. Acute on chronic systolic heart failure exacerbation, ACC stage C. 2. New onset atrial flutter with 4:1 conduction block. 3. High-degree AV block. Coreg on hold. 4. Bilateral lung masses suspicious for malignancy. 5. Chronic atrial fibrillation, on anticoagulation. 6. Former smoker. 7. Hypertension. 8. Hyperlipidemia. 9. Peripheral vascular disease. 10. Benign prostatic hypertrophy. 11. Pulmonary hypertension. 12. Chronic anemia. 13. Chronic kidney disease stage 2. 14. Abn LFTs due to CHF PLAN: Ablation today Cardio/EP following Cont Eliquis Cont Losartan Cont IV Lasix Coreg on hold AM labs Outpatient appointment with Pulmonology arranged for Lung masses. Cont other meds as below Review of Systems - Review of Systems Respiratory: negative: Cough, Dry, Shortness of Breath, Hemoptysis, SOB with Excertion, Pleuritic Pain, Sputum, Wheezing Cardiovascular: negative: chest pain, palpitations, orthopnea, paroxysmal nocturnal dyspnea, edema, light headedness, other Gastrointestinal: negative: Nausea, Vomiting, Abdominal Pain, Diarrhea, Constipation, Melena, Hematochezia, Other - Medications/Allergies Allergies/Adverse Reactions: Allergies Allergy/AdvReac Type Severity Reaction Status Date / Time codeine Allergy Rash Verified 12/01/18 01:11 Medications: Current Medications Acetaminophen (Tylenol) 650 mg PO Q4H PRN PRN Reason: Headache/Fever/Mild Pain (1-3) Apixaban (Eliquis) 5 mg PO BID [facility] Last Admin: 12/02/18 13:37 Dose: Not Given Aspirin (Aspirin Chewable) 81 mg PO QAM [facility] Last Admin: 12/02/18 13:37 Dose: Not Given Atorvastatin Calcium (Lipitor) 20 mg PO HS [facility] Last Admin: 12/01/18 21:50 Dose: 20 mg Calcium Carbonate (Tums) 1,000 mg PO Q4H PRN PRN Reason: Heartburn or Indigestion Famotidine (Pepcid) 20 mg PO BID [facility] Last Admin: 12/02/18 13:38 Dose: Not Given Furosemide (Lasix) 20 mg SLOW IVP DAILY [facility] Last Admin: 12/02/18 13:38 Dose: Not Given Losartan Potassium (Cozaar) 12.5 mg PO DAILY [facility] Last Admin: 12/02/18 13:38 Dose: Not Given Nitroglycerin (Nitrostat) 0.4 mg PO Q5MIN PRN PRN Reason: Chest Pain Ondansetron HCl (Zofran) 4 mg IVP Q6H PRN PRN Reason: Nausea/Vomiting Potassium Chloride (K-Dur) 20 meq PO BID-[facility] Last Admin: 12/02/18 13:37 Dose: Not Given Senna/Docusate Sodium (Senokot S) 2 tab PO BID PRN PRN Reason: Constipation Sodium Chloride (Flush - Normal Saline) 10 ml IVF Q12HR PRN PRN Reason: Saline Flush Last Admin: 12/01/18 09:39 Dose: 10 ml Terazosin HCl (Hytrin) 5 mg PO BID [facility] Last Admin: 12/02/18 13:38 Dose: Not Given Zolpidem Tartrate (Ambien) 5 mg PO HSPRN PRN PRN Reason: Insomnia
[2018-12-02] MEDS ORDERED: Midazolam HCl 2 mg/2 ml Vial ONE (14:31)
[2018-12-02] MEDS ORDERED: Ondansetron HCl/PF 4 MG/2 ML Vial IVP PRN (15:40)
[2018-12-02] MEDS ORDERED: Promethazine HCl 25 MG/ML VIAL IM PRN (15:40)
[2018-12-02] MEDS ORDERED: Promethazine HCl 25 MG/ML VIAL SLOW IVP PRN (15:40)
--- NOTE | 2018-12-02 16:28 | ECHO ---
TRANSESOPHAGEAL ECHOCARDIOGRAM: Date: 12/02/18 PREPROCEDURE DIAGNOSIS: Atrial flutter. DETAILS: The anesthesia department provided anesthesia for the patient. Please see their notes for details. After adequate sedation was achieved, the transesophageal probe was inserted into the patient's mouth and into the esophagus, and multiplanar views were then obtained. FINDINGS: Left ventricle is normal size with normal wall thickness. Systolic function is mildly reduced, ejecti on fraction estimated at 45-50%. Left atrium is dilated. Left atrial appendage is a large appendage with spontaneous echo contrast, but no mass or thrombus. Right atrium is mildly dilated. No mass or thrombus. Right ventricle is normal size with normal RV systolic function. Aortic valve is structurally normal with no stenosis. There is mild aortic insufficiency. Mitral valve is structurally normal. There is mild MR. No stenosis. Pulmonary valve is structurally normal. There is mild PI. Tricuspid valve structurally normal. There is mild TR. No stenosis. CONCLUSIONS: 1. Systolic function of 45-50%. 2. Left atrial enlargement. 3. Left atrial appendage without mass or thrombus, but has spontaneous echo contrast and reduced gerardo ocities. Patient in atrial flutter. 4. Mild aortic insufficiency. 5. Mild TR. 6. Mild MR. 7. Mild PI.
[2018-12-02] MEDS: Atorvastatin Calcium 20 MG TAB PO SCH (20:33)
--- NOTE | 2018-12-02 22:12 | OP ---
DATE OF PROCEDURE: 12/02/2018 PROCEDURE PERFORMED: Comprehensive electrophysiology testing with 3D mapping and ablation of atrial flutter. CLINICAL INDICATION: ASA CLASSIFICATION: 3. ANESTHESIA: General endotracheal anesthesia per Anesthesiology. ADDITIONAL CARDIAC MEDICATIONS: None. TOTAL HEPARIN GIVEN: Zero. TOTAL RF TIME: 3 minutes 24 seconds. ACUTE COMPLICATIONS: None. METHODS: After informed consent was obtained, the patient was taken to the EP lab in a fasting state. Both groins were prepped and draped using ultrasound guidance. The right and left femoral veins were accessed and wires were inserted into the central venous system. Wires were used to place 11-Colombian and 8-Colombian sheaths in the left groin and two 8-Colombian sheaths in the right groin. All 8-Colombian sheaths were then replaced by long sheaths for catheter stability. An echo probe was placed in the left groin and advanced up to the right atrium and right ventricle for imaging. A 20-pole catheter was placed in the left groin and advanced to the coronary sinus for mapping. A circular and ablation catheter was placed in the right groin and advanced up to the right atrium. A 3D map was obtained at the right atrium and the coronary sinus. Pacing was performed in the CTI area, confirming concealed entrainment. Ablation was delivered in a linear fashion, interrupting the flutter circuit. This terminated flutter. Additional lesions were catheters were withdrawn, sheaths were pulled, hemostasis was achieved with Perclose and collagen closure. RESULTS: 1. Baseline intervals: Flutter cycling 230 milliseconds, HV interval 54 milliseconds. Concealed entrainment was confirmed when pacing from the atrium. 2. AV iza function: Antegrade block was greater than 400 milliseconds when pacing from the CS. There was no VA conduction seen when pacing from the ventricle. All conduction appeared to be conducting in a concentric fashion. 3. Ablation details: A total of 3 minutes and 24 seconds was delivered with a [employer] Gaspar open irrigated ablation catheter. IMPRESSION: Successful ablation of CTI flutter. RECOMMENDATIONS: Oral anticoagulation for at least a month. Job ID: [id number]
[2018-12-03] MEDS ORDERED: Promethazine HCl 25 MG/ML VIAL ONE (06:22)
[2018-12-03] MEDS ORDERED: Ondansetron PF 4 MG/2 ML Vial ONE (06:22)
[2018-12-03 07:10] LABS: #Eosinphils 0.1 thou/uL (0.0-0.7); #Lymphocytes 2.1 thou/uL (1.20-3.40); #Monocytes 0.7 thou/uL (0.11-0.59); #Neutrophils 3.8 thou/uL (1.40-6.50); %Basophils 0.2 % (0.0-1.0); %Eosinophils 1.7 % (0.0-10.0); %Lymphocytes 31.8 % (21.0-51.0); %Monocytes 10.3 % (0.0-10.0); Hemoglobin 12.6 g/dL (14.0-18.0); Mean Corpuscular HGB CONC 33.5 g/dL (32.0-36.0); Mean Corpuscular Volume 86.6 fL (78.0-98.0); Mean Platelet Volume 8.3 fL (7.4-10.4); Platelet Count 221 thou/uL (130-400); RBC Distribution Width 14.1 % (11.5-14.5); Red Blood Cell (RBC) Count 4.34 mill/uL (4.70-6.10); White Blood Cell (WBC) Count 6.7 thou/uL (4.8-10.8)
[2018-12-03 07:24] LABS: ALT (SGPT) 16 U/L (8-55); AST (SGOT) 14 U/L (5-34); Alkaline Phosphatase 105 U/L (40-150); Anion Gap 11 mmol/L (10-20); BUN (Urea Nitrogen) 13 mg/dL (8.4-25.7); Bilirubin, Total 1.3 mg/dL (0.2-1.2); Calc. Creatinine Clearance 91 mL/min (70-130); Calcium 9.2 mg/dL (7.8-10.44); Carbon Dioxide 25 mmol/L (23-31); Chloride 106 mmol/L (98-107); Estimated GFR-MDRD Greater than 90; Glucose 112 mg/dL (80-115); Potassium 3.8 mmol/L (3.5-5.1); Sodium 138 mmol/L (136-145)
[2018-12-03] MEDS: Potassium Chloride 20 MEQ TAB PO SCH (09:30)
[2018-12-03] MEDS: Aspirin Chewable 81 MG TAB PO SCH (09:30)
[2018-12-03] MEDS: Terazosin HCl 5 MG CAP PO SCH (09:30)
[2018-12-03] MEDS: Famotidine 20 MG TAB PO SCH (09:30)
[2018-12-03] MEDS: Furosemide 20 MG/2 ML VIAL SLOW IVP SCH (09:30)
[2018-12-03] MEDS: Losartan 25 MG TAB PO SCH (09:30)
[2018-12-03] MEDS: Apixaban 5 MG TAB PO SCH (09:31)
[2018-12-03 12:13] VITALS: TEMP 98.4
--- NOTE | 2018-12-03 12:33 | PDOC.CTH ---
Cardiology Progress Note - Subjective EP PROGRESS NOTE: 12/03/18 Follow up for atrial flutter. s/p CTI ablation and EP study on 12/02. Doing well today after ablation. No bleeding issues at groin sites. Feels well without cardiac concern/complaint. Eager to go home. No heart racing, palps, chest pain, dizziness, or passing out. - Objective Vital Signs Temp Pulse Resp BP BP Pulse Ox 12/03/18 11:54 98.4 F 84 16 124/58 L 98 12/03/18 07:22 97.9 F 75 16 118/57 L 96 12/03/18 03:08 99.5 F 88 16 107/53 L 97 Weight 190 lb 3.2 oz 12/02/18 12/03/18 12/04/18 06:59 06:59 06:59 Intake Total 720 1440 Output Total 300 Balance 720 1140 - Physical Examination General/Neuro: alert & oriented x3, NAD Neck: carotid US brisk, no JVD present Lungs: CTA, unlabored respirations Heart: PMI normal, RRR Abdomen: NT/ND, soft - Telemetry Telemetry Rhythm: SR - Labs Result Diagrams: 12/03/18 06:22 12/03/18 06:22 Troponin/CKMB Troponin I Less than 0.010 ng/mL (< 0.028) 12/01/18 02:31 - Assessment/Plan 1. Typical atrial flutter -s/p EPS and CTI ablation 12/[address] Kline 2. CHF -per primary team - fluid overload resolved OK for DC by EP. Rhythm has remained stable over HS but 2nd degree type 1 block was transiently seen while asleep. On chronic OAC. Will require OAC for at least 30 days post ablation then defer to initially prescribing provider regarding continued OAC. Will see back in clinic in 6 weeks for post RFA follow up. Resume coreg 3.125mg BID. Fluid overload likely from Flutter, so could refrain from home lasix for now.
[2018-12-03 13:08] VITALS: BP 126/60
--- NOTE | 2018-12-03 16:48 | EKG ---
Test Reason : Blood Pressure : / mmHG Vent. Rate : 076 BPM Atrial Rate : 076 BPM P-R Int : 304 ms QRS Dur : 108 ms QT Int : 402 ms P-R-T Axes : 055 009 044 degrees QTc Int : 452 ms Sinus rhythm with 1st degree A-V block Inferior infarct , age undetermined T wave abnormality, consider lateral ischemia Abnormal ECG Confirmed by DR. Tj COLE ([id number]) on 12/03/2018 4:48:22 PM Referred By: DENIA Confirmed By:DR. Tj COLE
--- NOTE | 2018-12-03 17:36 | DIS ---
DATE OF ADMISSION: 11/30/2018 DATE OF DISCHARGE: 12/03/2018 DISCHARGE DISPOSITION: Home. FOLLOWUP: 1. Follow up with primary care physician, Dr. Ferguson in 1 week. 2. Follow up with Cardiology, Dr. Alberto, and Electrophysiology, Dr. March as scheduled. 3. Follow up with Dr. Calin Kamara on 13 December 2018 at 10:00 a.m. ALLERGIES: THE PATIENT IS ALLERGIC TO CODEINE. THE PATIENT WAS SEEN AND EXAMINED ON THE DAY OF DISCHARGE. DENIES ANY NEW COMPLAINTS. NO CHEST PAIN, SHORTNESS OF BREATH, OR PALPITATIONS REPORTED. BRIEF HOSPITAL COURSE: The patient is a 68-year-old male with chronic atrial fibrillation, on anticoagulation, hypertension, cardiomyopathy, and peripheral vascular disease, presented to the hospital on 30 November 2018, with shortness of breath along with chest discomfort. A CT angiogram of the chest in the emergency room was consistent with bilateral lung masses with mediastinal adenopathy highly suggestive of malignancy. He was found to be in atrial flutter. He also had high-degree AV block with more than 3 second pause requiring temporary discontinuation of carvedilol. Anticoagulation with Eliquis was continued. He was evaluated by Cardiology and Electrophysiology. He underwent a transesophageal echocardiogram along with ablation on 02 December 2018. An echocardiogram was obtained that showed ejection fraction of 40% to 45% with global hypokinesis, moderately dilated left atrium and mild tricuspid regurgitation. Carvedilol has been restarted. He has been also started on Lasix 40 mg daily. The patient will follow up with Dr. Kamara on 13 December 2018, for new lung masses. A repeat electrolytes after 1 to 2 week is recommended. Primary care physician advised to follow. DISCHARGE MEDICATIONS: 1. Carvedilol 3.125 mg b.i.d. I confirmed with Electrophysiology and Cardiology, who recommended to continue carvedilol. 2. Losartan 12.5 mg daily. 3. Terazosin 5 mg b.i.d. 4. Eliquis 5 mg b.i.d. 5. Aspirin 81 mg daily. 6. Lipitor 20 mg at bedtime. 7. Lasix 40 mg daily. 8. Potassium chloride 20 mEq daily. FINAL DIAGNOSES: 1. Acute on chronic systolic heart failure exacerbation secondary to cardiac arrhythmias. 2. New onset atrial flutter with 4:1 conduction block, status post JENNIFER cardioversion this admission. 3. High-degree AV block while the patient was in atrial flutter. 4. Bilateral lung masses highly suspicious for malignancy. The patient has appointment with Dr. Kamara as outpatient. 5. Chronic atrial fibrillation, on Eliquis. 6. Former smoker. 7. Peripheral vascular disease, status post aortofemoral bypass as well as surgical intervention for embolus by Dr. Rogers in the past. 8. Benign prostatic hypertrophy. 9. Pulmonary hypertension. 10. Chronic kidney disease, stage 2. 11. Chronic anemia. 12. Hypertension. 13. Hyperlipidemia. PLAN: Plan of care was discussed with the patient in detail. He stated understanding. Job ID: [id number]
--- NOTE | 2018-12-04 15:40 | EKG ---
Test Reason : Blood Pressure : / mmHG Vent. Rate : 066 BPM Atrial Rate : 264 BPM P-R Int : 000 ms QRS Dur : 110 ms QT Int : 434 ms P-R-T Axes : 080 066 087 degrees QTc Int : 454 ms Atrial flutter with 4:1 A-V conduction Lateral infarct , age undetermined No STEMI Abnormal ECG Confirmed by DORA MURRELL M.D. ([id number]), video effects editor [employer] ([id number]) on 12/04/2018 3:40:20 PM Referred By: Confirmed By:DORA MURRELL M.D.
== END 2018-12-03 12:54 | disposition home or self-care (01) ==
LOC: ERS 11:47 → 2SW 21:06
PROVIDERS: ADMIT Internal Medicine; ATTEND Internal Medicine
PROC: 02583ZZ Destruction of Conduction Mechanism, Percutaneous Approach (ICD-10-PCS; principal; 2018-12-02)
PROC: 02K83ZZ Map Conduction Mechanism, Percutaneous Approach (ICD-10-PCS; 2018-12-02)
PROC: 4A023FZ Measurement of Cardiac Rhythm, Percutaneous Approach (ICD-10-PCS; 2018-12-02)
PROC: 4A0234Z Measurement of Cardiac Electrical Activity, Percutaneous Approach (ICD-10-PCS; 2018-12-02)
PROC: B24BZZ4 Ultrasonography of Heart with Aorta, Transesophageal (ICD-10-PCS; 2018-12-02)
DX: I48.3 Typical atrial flutter (principal); I13.0 Hypertensive heart and chronic kidney disease with heart failure and stage 1 through stage 4 chronic kidney disease, or unspecified chronic kidney disease; N18.2 Chronic kidney disease, stage 2 (mild); I50.23 Acute on chronic systolic (congestive) heart failure; D63.1 Anemia in chronic kidney disease; I44.30 Unspecified atrioventricular block; I73.9 Peripheral vascular disease, unspecified; I25.2 Old myocardial infarction; I48.2 Chronic atrial fibrillation; I42.9 Cardiomyopathy, unspecified; N40.0 Benign prostatic hyperplasia without lower urinary tract symptoms; E78.5 Hyperlipidemia, unspecified; I27.20 Pulmonary hypertension, unspecified; Z87.891 Personal history of nicotine dependence; Z79.01 Long term (current) use of anticoagulants; Z79.82 Long term (current) use of aspirin; Z79.899 Other long term (current) drug therapy; Z88.5 Allergy status to narcotic agent
CPT/HCPCS: 71275; 76942; 80048; 80053 ×3; 83735 ×2; 83880; 84484 ×3; 85025 ×4; 85379; 85610; 93005 ×2; 93306; 93312; 93613; 93653; 93662; 93798; 94760; 96374; 96376 ×2; 99285; C1731; C1732 ×2; C1759; C1760; C1769; G0378 ×3; 36415; 93010; J1644; J1940; J2250; J2405; J2550; J2704; J2720; Q9966

== ENCOUNTER 2019-01-06 08:03 | Outpatient (CLI) | payer MEDICARE ==
--- NOTE | 2019-01-06 11:59 | PET ---
EXAM: PET/CT HISTORY: Bilateral lung masses TECHNIQUE: PET scanning with CT attenuation correction was performed from the base of the brain to the proximal thighs following the intravenous administration of 11.5 millicuries [id number]. COMPARISON: None. CORRELATION: CT pulmonary angiogram of 11/30/[address] Stone protocol at 09/17/2018 FINDINGS: There is hypermetabolic activity in the right paratracheal/pretracheal lymph node with an SUV of 3.7 and in the right hilar lymph node with an SUV of 2.9. No iza hypermetabolism is seen in the neck, axillae, abdomen or pelvis. No abnormal FDG localization is noted in the lung nodules noted on the CT scan of 11/30/2018 with an S UV of 1.4 in the right upper lobe nodule and an SUV of 1.5 in the left lower lobe superior segment nodule. No abnormal FDG localization is seen in the adrenal adenomas which is stable since the CT Stone arturo col 09/17/2018. No hypermetabolic liver, adrenal or skeletal lesions are seen. There is physiologic activity in the GI and tracts and the visualized portions of the brain. The CT scan used for attenuation correction demonstrates no evidence of pleural effusions or ascites. IMPRESSION: 1. Hypermetabolic mediastinal and right hilar lymph nodes are suspicious for malignancy/metastatic di sease. 2. No abnormal FDG localization in the morphologically suspicious lung nodules noted on the CT scan o f 11/30/2018.
== END 2019-01-06 08:04 | disposition home or self-care (01) ==
LOC: PET 08:03
PROVIDERS: ATTEND Internal Medicine Pulmonary Disease
DX: R91.1 Solitary pulmonary nodule (principal)
CPT/HCPCS: 78815; A9552

== ENCOUNTER 2019-01-11 14:15 | Outpatient (CLI) | payer MEDICARE ==
[2019-01-11 16:55] LABS: Hemoglobin 13.7 g/dL (14.0-18.0); Mean Corpuscular HGB CONC 32.4 g/dL (32.0-36.0); Mean Corpuscular Volume 86.3 fL (78.0-98.0); Mean Platelet Volume 8.9 fL (7.4-10.4); Platelet Count 219 thou/uL (130-400); RBC Distribution Width 13.2 % (11.5-14.5); Red Blood Cell (RBC) Count 4.88 mill/uL (4.70-6.10); White Blood Cell (WBC) Count 5.8 thou/uL (4.8-10.8)
[2019-01-11 16:56] LABS: Anion Gap 17 mmol/L (10-20); BUN (Urea Nitrogen) 20 mg/dL (8.4-25.7); Calc. Creatinine Clearance 0 mL/min (70-130); Calcium 9.6 mg/dL (7.8-10.44); Carbon Dioxide 23 mmol/L (23-31); Chloride 102 mmol/L (98-107); Estimated GFR-MDRD 84; Glucose 88 mg/dL (80-115); Potassium 3.9 mmol/L (3.5-5.1); Sodium 138 mmol/L (136-145)
== END 2019-01-11 14:16 | disposition home or self-care (01) ==
LOC: LABBT 14:15
PROVIDERS: ATTEND Thoracic Surgery (Cardiothoracic Vascular Surgery)
DX: Z01.818 Encounter for other preprocedural examination (principal); J98.59 Other diseases of mediastinum, not elsewhere classified
CPT/HCPCS: 80048; 85027; 93005; 93010

== ENCOUNTER 2019-01-11 15:00 | Inpatient (IN) | payer MEDICARE ==
[2019-01-11 14:36] VITALS: BMI 26.7
[2019-01-12] MEDS ORDERED: Lidocaine 2% Jelly 5 ML TUBE ONE (08:31)
[2019-01-12] MEDS ORDERED: Fentanyl 100 MCG/2 ML VIAL ONE (08:31)
[2019-01-12] MEDS ORDERED: Bupivacaine/Epinephrine 0.25% 30 ML VIAL ONE (09:04)
[2019-01-12] MEDS ORDERED: Rocuronium Bromide 10 MG/ML (10ML VIAL) ONE (11:17)
[2019-01-12] MEDS ORDERED: PROPOFOL 200 MG/20 ML VIAL ONE (11:17)
[2019-01-12] MEDS ORDERED: Ondansetron PF 4 MG/2 ML Vial ONE (11:17)
[2019-01-12] MEDS ORDERED: Lidocaine 1% PF 5 ML VIAL ONE (11:17)
[2019-01-12] MEDS ORDERED: Glycopyrrolate 0.2 MG/ML 5 ML SYRINGE ONE (11:17)
[2019-01-12] MEDS ORDERED: ePHEDrine 50 MG/ML VIAL ONE (11:17)
[2019-01-12] MEDS ORDERED: PHENYLEPHRINE-NS 100 MCG/ML 10 ML SYRINGE ONE (11:17)
[2019-01-12] MEDS ORDERED: HYDROcodone/Acetaminophen 5/325 mg Tablet ONE (11:43)
--- NOTE | 2019-01-13 07:55 | OP ---
DATE OF PROCEDURE: 01/12/2019 PREOPERATIVE DIAGNOSIS: Mediastinal adenopathy. PROCEDURE PERFORMED: Cervical mediastinal exploration with biopsy. ANESTHESIA: General. ESTIMATED BLOOD LOSS: Minimal. DESCRIPTION OF PROCEDURE: After adequate anesthesia had been obtained, the patient was prepped and draped. A transverse incision was made in the suprasternal notch, carried down through the midline of the tissues of the neck, exposing the trachea, where a finger was inserted and blunt dissection was carried out. The scope was then inserted and using blunt dissection, it was carried down to the tracheal bifurcation. The scope was withdrawn slightly and anteriorly, massive lymph nodes was identified and several biopsies were obtained. Hemostasis was obtained with the Bovie road repairer and the scope was gently removed and there was no bleeding. The wound was then closed in layers and the patient was to be taken to the recovery room in satisfactory condition. Specimens were sent fresh to the Pathology Department. Job ID: [id number]
--- NOTE | 2019-01-14 09:48 | PQF ---
CATRACHO RESTREPO JR, JAMES M MD [id number] CLINICAL DOCUMENTATION CLARIFICATION FORM: POST DISCHARGE Addendum to original discharge summary date: final diagonsis of metastatic lung cancer to mediastinum Late entry note date: 01/14/2019 DATE: 01/14/19 ATTN: Dr. Rogers Please exercise your independent, professional judgment in responding to the clarification form. Clinical indicators are provided on the bottom of this form for your review ___ Final Diagnosis on the Pathology report: Lymph node, mediastinal biopsy: Metastatic adenocarcinoma consistent with lung primary Clarification of Pathology report: Please check appropriate box(s): [ y ] Agree w the pathology finding of:_adenocarcinoma _ [ ] Other explanation of pathology findings (please specify) [ ] Other diagnosis [ ] Unable to determine For continuity of documentation, please document condition throughout progress notes and discharge summary. Thank You. CLINICAL INDICATORS - SIGNS/ SYMPTOMS / LABS Mediastinal adenopathy--01/12 OP note RISK FACTORS Ex-heavy cigarette smoker (20-30 day)--01/12 H&P under social history TREATMENTS Mediastinoscopy with biopsy of lymph nodes---performed 01/12/19 Thank you, Gena Phelps, [facility] 01/14/19@9:44AM (This form is maintained as a part of the permanent medical record) 2014 [employer] All Rights Reserved Gena [email or web address] [phone] MTDD
== END 2019-01-12 12:20 | disposition home or self-care (01) | DRG 824 ==
LOC: SURG A 01-12 06:43
PROVIDERS: ADMIT Thoracic Surgery (Cardiothoracic Vascular Surgery); ATTEND Thoracic Surgery (Cardiothoracic Vascular Surgery)
PROC: 07B74ZX Excision of Thorax Lymphatic, Percutaneous Endoscopic Approach, Diagnostic (ICD-10-PCS; principal; 2019-01-12)
DX: C77.1 Secondary and unspecified malignant neoplasm of intrathoracic lymph nodes (principal); I48.92 Unspecified atrial flutter; C34.90 Malignant neoplasm of unspecified part of unspecified bronchus or lung; I10 Essential (primary) hypertension; Z79.899 Other long term (current) drug therapy; Z87.891 Personal history of nicotine dependence; Z79.02 Long term (current) use of antithrombotics/antiplatelets; Z79.82 Long term (current) use of aspirin; Z98.890 Other specified postprocedural states; Z86.79 Personal history of other diseases of the circulatory system; Z82.49 Family history of ischemic heart disease and other diseases of the circulatory system
CPT/HCPCS: 80048; 85027; 88184; 88307; 88341; 88342; 93005; 93010; J0690; J1642; J3010

== ENCOUNTER 2019-01-28 11:41 | Outpatient (CLI) | payer MEDICARE ==
[~2019-01-28 11:41] MED LIST changes: +Gadobenate Dimeglumine 529 MG/1 ML (20ML VIAL) ONE; -ISOVUE-370 76%-LOCM 1 ML ONE
--- NOTE | 2019-01-28 15:36 | MRI ---
MRI BRAIN WITH AND WITHOUT CONTRAST: INDICATIONS: Malignant neoplasm of right lung. Assess for brain metastasis. TECHNIQUE: Multiplanar, multisequential imaging of the brain obtained. Post contrast images were obtained, admi nistering 18 mL of MultiHance IV. FINDINGS: The ventricles have normal size and position. Mild periventricular white matter changes are seen, co nsistent with mild chronic ischemic white matter change. No evidence of restricted diffusion. No ma ss or edema. No abnormal enhancement identified. No evidence of brain metastasis identified. There is a mucus retention cyst on the floor of the left maxillary sinus, measuring approximately 2 c m. IMPRESSION: Mild chronic ischemic white matter change in the periventricular white matter. No acute process. No evidence of brain metastasis. POS: [facility]
== END 2019-01-28 11:42 | disposition home or self-care (01) ==
LOC: BICMRI 11:41
PROVIDERS: ATTEND Internal Medicine Hematology & Oncology
DX: C34.81 Malignant neoplasm of overlapping sites of right bronchus and lung (principal); R93.89 Abnormal findings on diagnostic imaging of other specified body structures
CPT/HCPCS: 70553; A9577

== ENCOUNTER 2019-02-14 02:03 | Outpatient (CLI) | payer MEDICARE ==
[2019-02-14 11:03] LABS: Hemoglobin 14.1 g/dL (14.0-18.0); Mean Corpuscular HGB CONC 34.1 g/dL (32.0-36.0); Mean Corpuscular Hemoglobin 28.6 pg (27.0-31.0); Mean Corpuscular Volume 83.9 fL (78.0-98.0); Mean Platelet Volume 8.1 fL (7.4-10.4); Platelet Count 224 thou/uL (130-400); RBC Distribution Width 12.8 % (11.5-14.5); Red Blood Cell (RBC) Count 4.92 mill/uL (4.70-6.10); White Blood Cell (WBC) Count 5.3 thou/uL (4.8-10.8)
[2019-02-14 11:22] LABS: Anion Gap 12 mmol/L (10-20); BUN (Urea Nitrogen) 11 mg/dL (8.4-25.7); Calc. Creatinine Clearance 0 mL/min (70-130); Calcium 10.1 mg/dL (7.8-10.44); Carbon Dioxide 27 mmol/L (23-31); Chloride 101 mmol/L (98-107); Estimated GFR-MDRD 85; Glucose 116 mg/dL (80-115); Potassium 3.8 mmol/L (3.5-5.1); Sodium 136 mmol/L (136-145)
== END 2019-02-14 02:04 | disposition home or self-care (01) ==
LOC: LABBT 02:03
PROVIDERS: ATTEND Thoracic Surgery (Cardiothoracic Vascular Surgery)
DX: Z01.818 Encounter for other preprocedural examination (principal); J98.59 Other diseases of mediastinum, not elsewhere classified
CPT/HCPCS: 80048; 85027

== ENCOUNTER 2019-02-15 05:45 | Day surgery (SDC) | payer MEDICARE ==
[2019-02-14 10:24] VITALS: BMI 26.4
--- NOTE | 2019-02-14 15:42 | HP ---
ANTICIPATED SURGERY DATE: 02/15/2019. HISTORY OF PRESENT ILLNESS: This is a 68-year-old gentleman, who was recently found to have a stage IV lung cancer, adenocarcinoma by biopsy of a mediastinal lymph node. He is now scheduled for chemotherapy and has been asked to place a MediPort catheter. PAST MEDICAL HISTORY: Significant for a popliteal artery exploration, embolectomy, and external iliac bypass in 2018, and an ablation in 2019 for a supraventricular flutter. He also has a history of hypertension. MEDICATIONS: Include, 1. Coreg 3.125 b.i.d. 2. Flomax 5 mg two tablets daily. 3. Eliquis 5 mg b.i.d. 4. Losartan 12.5 a day. 5. Aspirin 81 a day. 6. Atorvastatin 20 a day. 7. Lasix 40 a day. 8. KCl 20 a day. ALLERGIES: TO CODEINE. SOCIAL HISTORY: The patient is a former smoker. He is . PHYSICAL EXAMINATION: GENERAL: Alert, cooperative gentleman. VITAL SIGNS: Weight 190, heart rate 76, blood pressure 100/70. NECK: No carotid bruits. No cervical adenopathy. CARDIAC: Irregularly irregular rhythm. No murmurs. LUNGS: Clear to auscultation. ABDOMEN: Normal bowel sounds. Soft, nontender. EXTREMITIES: No edema. Palpable femoral and popliteal pulses. PLAN: At this time is for MediPort catheter placement. Job ID: [id number]
[2019-02-15] MEDS ORDERED: Lidocaine 1% w/Epinephrine 1:100K 20 ML VIAL ONE (06:40)
[2019-02-15] MEDS ORDERED: Propofol 500 MG/50 ML VIAL ONE (07:06)
--- NOTE | 2019-02-15 14:33 | OP ---
DATE OF PROCEDURE: 02/15/2019 PROCEDURE PERFORMED: MediPort insertion, low-profile. ANESTHESIA: Sedation with 1% lidocaine with epinephrine. DESCRIPTION OF PROCEDURE: After prepping and draping the right chest and neck, lidocaine was used to infiltrate over the pectoralis area, and a small pocket was made for the MediPort. A separate area was infiltrated just above the clavicle on the right. Incision made and using ultrasound guidance, the IJ was punctured. Wire inserted. Dilator and sheath loaded on the wire. A tunneler was then used to pass the catheter up from the connecting the 2 incisions. Under fluoroscopy, the dilator and sheath were then advanced. The catheter placed through the sheath. The sheath peeled away and the catheter positioned. X-ray showed no kinking in the catheter. It was then connected to the MediPort, flushed with heparin saline and its pocket, and the wound closed in layers. Fluoro, 27 seconds. The patient tolerated the procedure well. Job ID: [id number]
== END 2019-02-15 09:22 | disposition home or self-care (01) ==
LOC: SDC 05:45 → EEVIPCON 11:00
PROVIDERS: ATTEND Thoracic Surgery (Cardiothoracic Vascular Surgery)
PROC: 02HV33Z Insertion of Infusion Device into Superior Vena Cava, Percutaneous Approach (ICD-10-PCS; principal; 2019-02-15)
DX: C34.90 Malignant neoplasm of unspecified part of unspecified bronchus or lung (principal); C77.1 Secondary and unspecified malignant neoplasm of intrathoracic lymph nodes; I10 Essential (primary) hypertension; Z87.891 Personal history of nicotine dependence; Z79.82 Long term (current) use of aspirin; Z79.899 Other long term (current) drug therapy; Z88.5 Allergy status to narcotic agent; Z95.1 Presence of aortocoronary bypass graft; Z98.890 Other specified postprocedural states
CPT/HCPCS: C1788; J0690; J1642; J2001; J2704

== ENCOUNTER 2019-02-17 08:52 | Day surgery (SDC) | payer MEDICARE ==
[~2019-02-17 08:52] MED LIST changes: +CARBOPLATIN IVPB SCH; -Gadobenate Dimeglumine 529 MG/1 ML (20ML VIAL) ONE; +Palonosetron HCl 0.25 MG in Sodium Chloride 0.9% 50 ML IVPB SCH; +Pembrolizumab 200 MG in Sodium Chloride 0.9% 250 ML 250 ML IV SCH; +Pemetrexed 1,000 MG in Sodium Chloride 0.9% 60 ML IVPB SCH; +SODIUM CHLORIDE 0.9% IVPB SCH
[2019-02-17] MEDS ORDERED: Sodium Chloride 0.9% 20 ML ONE (08:57)
[2019-02-17] MEDS ORDERED: Folic Acid 1 MG TAB PO SCH (09:00)
[2019-02-17] MEDS ORDERED: Sodium Chloride 0.9% 30 ML ONE (09:14)
[2019-02-17 10:04] VITALS: BP 131/61; TEMP 97.6
== END 2019-02-17 13:09 | disposition home or self-care (01) ==
LOC: ONC/OP 08:52
PROVIDERS: ATTEND Internal Medicine Hematology & Oncology
DX: Z51.11 Encounter for antineoplastic chemotherapy (principal); C34.81 Malignant neoplasm of overlapping sites of right bronchus and lung; Z88.6 Allergy status to analgesic agent
CPT/HCPCS: 36415; 80053; 82248; 82378; 83615; 84100; 84550; 96375; 96413; 96417; J1100; J1642; J2469; J3490; J7050; J9045; J9271; J9305

== ENCOUNTER 2019-03-15 09:02 | Day surgery (SDC) | payer MEDICARE ==
[~2019-03-15 09:02] MED LIST changes: +Folic Acid 1 MG TAB PO SCH; +Iopamidol 300 61% 30 ML VIAL ONE
[2019-03-15] MEDS ORDERED: Sodium Chloride 0.9% 20 ML ONE (09:15)
[2019-03-15] MEDS ORDERED: CARBOPLATIN IVPB SCH (10:45)
[2019-03-15] MEDS ORDERED: SODIUM CHLORIDE 0.9% IVPB SCH (10:45)
[2019-03-15] MEDS ORDERED: Sodium Chloride 0.9% 1,000 ML IV SCH (11:00)
--- NOTE | 2019-03-15 11:34 | RAD ---
XR Vascular Access Port Check History: Painful port Comparison: None. Findings: Patient was brought to the fluoroscopy suite. All questions were answered. The port catheter was already accessed. 5 mL of Omnipaque 300 was instilled into the port catheter. T here is no reflux of contrast. Contrast flows freely through the port. No fibrin sheath. Impression: Normal port catheter check. Fluoroscopy time: 0.1 minutes Dose area product: 67.4 uGy centimeter squared
[2019-03-15 13:29] VITALS: BP 122/65; TEMP 98.1
== END 2019-03-15 14:23 | disposition home or self-care (01) ==
LOC: ONC/OP 09:02
PROVIDERS: ATTEND Internal Medicine Hematology & Oncology
DX: Z51.11 Encounter for antineoplastic chemotherapy (principal); C34.81 Malignant neoplasm of overlapping sites of right bronchus and lung; Z88.5 Allergy status to narcotic agent
CPT/HCPCS: 36415; 36598; 82565; 96361; 96375; 96413; 96417; J1100; J1642; J2469; J3490; J7050; J9045; J9271; J9305; Q9967

== ENCOUNTER → 2019-04-05 | Day surgery (SDC) | payer MEDICARE ==
[~2019-04-05] MED LIST changes: -Iopamidol 300 61% 30 ML VIAL ONE; +Sodium Chloride 0.9% 1,000 ML IV SCH
[2019-04-05 15:48] VITALS: BP 133/64; TEMP 97.9
== END ==
LOC: ONC/OP 11:43
PROVIDERS: ATTEND Internal Medicine Hematology & Oncology
DX: Z51.11 Encounter for antineoplastic chemotherapy (principal); C34.81 Malignant neoplasm of overlapping sites of right bronchus and lung; Z88.5 Allergy status to narcotic agent
CPT/HCPCS: 80053; 82248; 83615; 84100; 84550; 96375; 96411; 96413; 96417; J1100; J2469; J3490; J7050; J9045; J9271; J9305

== ENCOUNTER 2019-04-26 10:57 | Day surgery (SDC) | payer MEDICARE, OTHER ==
[~2019-04-26 10:57] MED LIST changes: +Cyanocobalamin 1000 MCG/ML VIAL SC SCH; -Sodium Chloride 0.9% 1,000 ML IV SCH
[2019-04-26 11:09] VITALS: BP 124/68; TEMP 97.8
[2019-04-26] MEDS ORDERED: Sodium Chloride 0.9% 20 ML ONE (11:09)
== END 2019-04-26 13:31 | disposition home or self-care (01) ==
LOC: ONC/OP 10:57
PROVIDERS: ATTEND Internal Medicine Hematology & Oncology
DX: Z51.11 Encounter for antineoplastic chemotherapy (principal); C34.81 Malignant neoplasm of overlapping sites of right bronchus and lung; Z88.5 Allergy status to narcotic agent
CPT/HCPCS: 36415; 80053; 82248; 83615; 84100; 84550; 96375; 96411; 96413; 96417; J1100; J1642; J2469; J3420; J3490; J7050; J9045; J9271; J9305

== ENCOUNTER 2019-05-04 09:29 | Outpatient (CLI) | payer MEDICARE ==
[2019-05-04 10:41] LABS: INR-International Normal Ratio 1.3; Prothrombin Time 16.2 SEC (12.0-14.7)
[2019-05-04 10:54] LABS: Calcium 9.5 mg/dL (7.8-10.44); Chloride 99 mmol/L (98-107); Potassium 3.7 mmol/L (3.5-5.1); Sodium 135 mmol/L (136-145)
[2019-05-04 11:18] LABS: Anion Gap 17 mmol/L (10-20); BUN (Urea Nitrogen) 32 mg/dL (8.4-25.7); Calc. Creatinine Clearance 0 mL/min (70-130); Carbon Dioxide 24 mmol/L (23-31); Estimated GFR-MDRD 44; Glucose 100 mg/dL (80-115)
[2019-05-04 12:06] LABS: Band 1 % (5-11); Eosinophils 5 % (0-10); Hemoglobin 9.7 g/dL (14.0-18.0); Lymphocytes 59 % (21-51); MDiff Complete? YES; Mean Corpuscular Hemoglobin 29.8 pg (27.0-31.0); Mean Corpuscular Volume 87.4 fL (78.0-98.0); Mean Platelet Volume 7.3 fL (7.4-10.4); Monocytes 5 % (0-10); Neutrophil 30 % (42-75); Ovalocytes SLIGHT = 2-5 cells (100X) (0-1/hpf); Platelet Count 242 thou/uL (130-400); Platelet Morphology Comment Appears Adequate; Polychromasia SLIGHT = 2-3 cells (100X) (0-2/hpf); RBC Distribution Width 16.8 % (11.5-14.5); Red Blood Cell (RBC) Count 3.24 mill/uL (4.70-6.10)
== END 2019-05-04 09:30 | disposition home or self-care (01) ==
LOC: LABBT 09:29
PROVIDERS: ATTEND Internal Medicine Cardiovascular Disease
DX: Z01.812 Encounter for preprocedural laboratory examination (principal); I48.91 Unspecified atrial fibrillation
CPT/HCPCS: 80048; 85025; 85610; 85730

== ENCOUNTER 2019-05-13 07:59 | Outpatient (CLI) | payer MEDICARE, OTHER ==
--- NOTE | 2019-05-13 10:44 | CT ---
CT CHEST WITH CONTRAST: Date: 05/13/19 INDICATION: Lung cancer, evaluate response to therapy. FINDINGS: Prior CT thorax dated 11/30/[address] dated 01/06/19 are referenced. FINDINGS: Redemonstration of bilateral pulmonary nodules, with slight interval decrease in volume, involving a spiculated nodule of the anterior right upper lobe, which has a decreased width, in a transverse dime nsion, and the diameter currently measures 13 mm, in a location measuring 20 mm on prior exam. Grossl y stable punctate nodule of the left upper lobe, measuring 5 mm currently. Interval decrease in volum e of spiculated nodule of the superior segment left lower lobe with residual linear reticulonodularit y of this region. Adjacent subpleural punctate ground-glass nodule of the left lower lobe is present, too small to further characterize. Previously documented precarinal lymph node has decreased in volu me as well, measuring approximately 11 mm in width, where previously measuring 18 mm. Decreased volum e of right hilar lymph node also present, with transverse dimension now measuring 13 mm, compared to 17 mm in a similar location on prior exam. The previously documented left adrenal adenoma is grossly stable. IMPRESSION: Interval response to therapy with regard to bilateral pulmonary nodules and mediastinal adenopathy. Of note, there is a new punctate subpleural ground-glass nodule, involving lateral aspect of the supe rior segment left lower lobe, approximately 5 mm. Recommend continued imaging follow-up. POS: [facility]
== END 2019-05-13 08:00 | disposition home or self-care (01) ==
LOC: BICCT 07:59
PROVIDERS: ATTEND Internal Medicine Hematology & Oncology
DX: C34.90 Malignant neoplasm of unspecified part of unspecified bronchus or lung (principal); R59.0 Localized enlarged lymph nodes; R91.8 Other nonspecific abnormal finding of lung field
CPT/HCPCS: 71260

== ENCOUNTER 2019-05-17 12:33 | Day surgery (SDC) | payer MEDICARE ==
[~2019-05-17 12:33] MED LIST changes: -CARBOPLATIN IVPB SCH; -Folic Acid 1 MG TAB PO SCH; +Ondansetron HCl/PF 15 MG in Sodium Chloride 0.9% 50 ML IVPB PRN; -Palonosetron HCl 0.25 MG in Sodium Chloride 0.9% 50 ML IVPB SCH; -SODIUM CHLORIDE 0.9% IVPB SCH
[2019-05-17] MEDS ORDERED: Sodium Chloride 0.9% 20 ML ONE (12:41)
[2019-05-17 12:44] VITALS: BP 135/67; TEMP 98.7
== END 2019-05-17 14:57 | disposition home or self-care (01) ==
LOC: ONC/OP 12:33
PROVIDERS: ATTEND Internal Medicine Hematology & Oncology
DX: Z51.12 Encounter for antineoplastic immunotherapy (principal); C34.81 Malignant neoplasm of overlapping sites of right bronchus and lung; Z88.5 Allergy status to narcotic agent
CPT/HCPCS: 36415; 80053; 82248; 83615; 84100; 84436; 84443; 84550; 96375; 96411; 96413; J1642; J2405; J3420; J3490; J7050; J9271; J9305

== ENCOUNTER 2019-06-03 14:13 | Inpatient (IN) | payer MEDICARE ==
[~2019-06-03 14:13] MED LIST changes: -Cyanocobalamin 1000 MCG/ML VIAL SC SCH; +ISOVUE-370 76%-LOCM 1 ML ONE; -Ondansetron HCl/PF 15 MG in Sodium Chloride 0.9% 50 ML IVPB PRN; -Pembrolizumab 200 MG in Sodium Chloride 0.9% 250 ML 250 ML IV SCH; -Pemetrexed 1,000 MG in Sodium Chloride 0.9% 60 ML IVPB SCH
[2019-06-03 15:07] LABS: #Lymphocytes 2.6 thou/uL (1.20-3.40); #Monocytes 1.3 thou/uL (0.11-0.59); #Neutrophils 6.8 thou/uL (1.40-6.50); %Basophils 0.4 % (0.0-1.0); %Eosinophils 0.3 % (0.0-10.0); %Lymphocytes 24.1 % (21.0-51.0); %Monocytes 11.9 % (0.0-10.0); %Neutrophils 63.3 % (42.0-75.0); Hemoglobin 4.4 g/dL (14.0-18.0); Mean Corpuscular HGB CONC 34.9 g/dL (32.0-36.0); Mean Corpuscular Hemoglobin 34.5 pg (27.0-31.0); Mean Platelet Volume 6.8 fL (7.4-10.4); Platelet Count 272 thou/uL (130-400); RBC Distribution Width 20.4 % (11.5-14.5); Red Blood Cell (RBC) Count 1.26 mill/uL (4.70-6.10); White Blood Cell (WBC) Count 10.8 thou/uL (4.8-10.8)
[2019-06-03 15:24] LABS: ALT (SGPT) 22 U/L (8-55); AST (SGOT) 19 U/L (5-34); Albumin 3.5 g/dL (3.4-4.8); Alkaline Phosphatase 81 U/L (40-150); Anion Gap 14 mmol/L (10-20); BUN (Urea Nitrogen) 24 mg/dL (8.4-25.7); Bilirubin, Total 0.5 mg/dL (0.2-1.2); Calc. Creatinine Clearance 0 mL/min (70-130); Calcium 8.1 mg/dL (7.8-10.44); Carbon Dioxide 22 mmol/L (23-31); Chloride 101 mmol/L (98-107); Estimated GFR-MDRD 47; Globulin 2.1 g/dL (2.4-3.5); Glucose 132 mg/dL (80-115); Potassium 3.1 mmol/L (3.5-5.1); Protein, Total 5.6 g/dL (5.8-8.1); Sodium 134 mmol/L (136-145)
--- NOTE | 2019-06-03 15:35 | CT ---
EXAM: CT pulmonary angiogram with IV contrast and 3-D MIP reconstructions PROVIDED CLINICAL HISTORY: Syncope COMPARISON: Chest CT 05/13/2019 FINDINGS: There is no evidence for central or segmental pulmonary embolus. Vascular calcification including cor onary calcium. There is stable spiculated parenchymal opacity involving the anterior segment of the right upper lobe. Stable left upper lobe pulmonary nodule. Enlarged mediastinal and right hilar lymph nodes with more conspicuity to the right hilar lymph node. This now measures about 1.9 cm in greatest transverse dimension as compared to about 1.4 cm on the prior. The airway appears patent and of normal caliber. Stable left adrenal mass The osseous structures demonstrate no concerning lytic or blastic lesions. Right chest wall implanted port again noted. IMPRESSION: No evidence for central or segmental pulmonary embolus.
[2019-06-03 15:52] LABS: INR-International Normal Ratio 1.8; PTT 27.2 SEC (22.9-36.1)
[2019-06-03 16:13] LABS: Bilirubin Negative (Negative); Blood, Urine Negative (Negative); Clarity Clear (Clear); Glucose, Urine (Dipstick) Normal (Negative); Leukocyte Negative Leu/uL (Negative); Nitrite Negative (Negative); Protein, Urine (Dipstick) Negative (Neg-Trace); Urobilinogen Normal mg/dL (Less than 2)
[2019-06-03] MEDS ORDERED: ADMIXTURE FEE IV SCH (16:15)
[2019-06-03] MEDS ORDERED: [UNRECOGNIZED DRUG - OTHER] IV SCH (16:15)
[2019-06-03] MEDS ORDERED: Phytonadione 10 MG/ML AMP SLOW IVP SCH (16:15)
[2019-06-03] MEDS ORDERED: HUM PROTHROMBIN CPLX IV SCH (16:15)
[2019-06-03] MEDS ORDERED: CCU Electrolyte Replacement 1 EACH IVPB ONE (16:38)
[2019-06-03] MEDS ORDERED: Acetaminophen 325 MG TAB PO PRN (16:40)
[2019-06-03] MEDS ORDERED: Potassium Chloride 20 MEQ TAB PO PRN (16:44)
[2019-06-03] MEDS ORDERED: Potassium Phosphate 15 MMOL in Sodium Chloride 0.9% 250 ML 250 ML IV PRN (16:44)
[2019-06-03] MEDS ORDERED: Potassium Phosphate 12 MMOL in Sodium Chloride 0.9% 250 ML 250 ML IV PRN (16:44)
[2019-06-03] MEDS ORDERED: Magnesium Oxide 400 MG TAB PO PRN ×2 (16:44)
[2019-06-03] MEDS ORDERED: Potassium Chloride 40 MEQ in Premix Bag 1 BAG IVPB PRN (16:44)
[2019-06-03] MEDS ORDERED: Potassium Phosphate 9 MMOL in Sodium Chloride 0.9% 100 ML IVPB PRN (16:44)
[2019-06-03] MEDS ORDERED: Potassium Chloride 40 MEQ in Sodium Chloride 0.9% 250 ML 250 ML IVPB PRN (16:44)
[2019-06-03] MEDS ORDERED: PHOS-NAK 1 PKT PACK PO PRN ×2 (16:44)
[2019-06-03] MEDS ORDERED: Magnesium 2 GM/50 ML 2 GM in Premix Bag 1 BAG IVPB PRN (16:44)
[2019-06-03] MEDS ORDERED: CCU ELECTROLYTE REPLACEMENT PROTOCOL FS PRN (16:44)
[2019-06-03] MEDS ORDERED: Pantoprazole 40 MG VIAL IVP SCH (16:45)
[2019-06-03] MEDS: Sodium Chloride 0.9% 1,000 ML IV SCH (22:18)
[2019-06-04 00:36] VITALS: BMI 24.0
--- NOTE | 2019-06-04 00:41 | HP ---
CHIEF COMPLAINT: Generalized weakness and syncope. HISTORY OF PRESENT ILLNESS: The patient is a 68-year-old male with current lung cancer being treated. He had maintenance chemotherapy about 2 weeks ago. Also, has a history of atrial fibrillation and aflutter status post cardioversion about 2 weeks ago, who presented to the hospital with syncopal episode. The patient's who is at the bedside stated that the patient has been feeling weak for the past 2 weeks significantly. She states that he has not been really walking around very much, decreased appetite, generalized weakness. Also stated that the patient today was sitting in the bed with his feet in the ground when he started leaning backward and almost closed his eyes and clenched his teeth. The patient's stated that she tried to wake him up, however, at this time, he did not wake up, he was lying back in bed. She denies any movement or jerking like sensation. At times, he would wake up and then again have a syncopal episode. The patient's called 911, so the patient came in to the ER for further evaluation. PAST MEDICAL HISTORY: 1. Stage IV adenocarcinoma of the lung. 2. Chronic atrial fibrillation. He is currently on Eliquis and he is status post cardioversion about a couple of weeks ago. 3. He has a history of gout. 4. He has a history of pulmonary hypertension, dyslipidemia, and peripheral vascular disease. PAST SURGICAL HISTORY: He has had an aortofemoral bypass in 2018. He had a left iliac embolus in 2018, placement of a MediPort in 02/2019 and left rotator cuff repair in 2013 and also a cardiac catheterization. SOCIAL HISTORY: He is , lives with his family. No alcohol use, drug use, or smoking history. He is currently a full code. ALLERGIES: ALLERGIC TO CODEINE. FAMILY HISTORY: His father had some sort of heart disease and COPD. Mother had hypertension, diabetes. MEDICATIONS: As of the following; 1. Eliquis 5 mg b.i.d. 2. Atorvastatin 20 mg daily. 3. Terazosin 5 mg b.i.d. 4. Carvedilol 3.125 daily. 5. Aspirin 81 mg daily. 6. Folic acid 1 mg p.o. daily. 7. Lasix 40 mg daily. REVIEW OF SYSTEMS: All negative except for the ones mentioned above in the HPI. LABORATORY RESULTS: As of the following; WBC of 10.8, hemoglobin of 4.4, hematocrit of 12.5, platelets of 272. Chemistry; sodium of 134, potassium of 3.1, BUN of 24, creatinine of 1.76. Troponin x1 is negative. He did have a chest CTA with no evidence of pulmonary embolism. ASSESSMENT AND PLAN: The patient is a very pleasant 68-year-old man who presents to the hospital with complaints after having a syncopal episode. 1. Syncope, most likely secondary to cardiogenic from anemia. His hemoglobin was found to be 4.4. His last hemoglobin on 05/10 was 9.2. He is on Eliquis. He also has been stating that he has been having dark stools for the past couple of weeks. The patient denies any use of NSAIDs. He has been just taking Tylenol p.r.n. for pain. He has never had any ulcers in the past. We will go ahead and transfuse him 2 units of PRBCs. We will consult GI. We will put him on Protonix just in case also he got Kcentra. Currently, he is in sinus rhythm, so we will hold off on all his anticoagulation. 2. Stage IV adenocarcinoma. He is on maintenance therapy, he is to get chemotherapy next Thursday. I do not believe at this time we need to consult Oncology. We will just continue to monitor him. 3. Chronic kidney disease, stable, it appears to be stage 3-4. We will continue to monitor. 4. Hypokalemia. We will replace his potassium. 5. Atrial fibrillation, currently sinus rhythm. We will hold off on Eliquis given his recent bleed. Job ID: [id number]
[2019-06-04 00:43] LABS: #Lymphocytes 2.1 thou/uL (1.20-3.40); #Neutrophils 7.2 thou/uL (1.40-6.50); %Basophils 0.3 % (0.0-1.0); %Eosinophils 0.3 % (0.0-10.0); %Lymphocytes 20.4 % (21.0-51.0); %Monocytes 9.6 % (0.0-10.0); %Neutrophils 69.4 % (42.0-75.0); Hemoglobin 6.4 g/dL (14.0-18.0); Mean Corpuscular Hemoglobin 31.7 pg (27.0-31.0); Mean Corpuscular Volume 93.3 fL (78.0-98.0); Mean Platelet Volume 6.2 fL (7.4-10.4); Platelet Count 240 thou/uL (130-400); RBC Distribution Width 17.6 % (11.5-14.5); Red Blood Cell (RBC) Count 2.03 mill/uL (4.70-6.10); White Blood Cell (WBC) Count 10.4 thou/uL (4.8-10.8)
[2019-06-04 02:28] VITALS: BP 103/52
[2019-06-04 03:45] LABS: #Neutrophils 6.8 thou/uL (1.40-6.50); %Basophils 0.3 % (0.0-1.0); %Eosinophils 0.4 % (0.0-10.0); %Lymphocytes 20.5 % (21.0-51.0); %Monocytes 10.2 % (0.0-10.0); %Neutrophils 68.6 % (42.0-75.0); Mean Corpuscular HGB CONC 34.2 g/dL (32.0-36.0); Mean Corpuscular Volume 93.3 fL (78.0-98.0); Platelet Count 239 thou/uL (130-400); RBC Distribution Width 17.6 % (11.5-14.5); Red Blood Cell (RBC) Count 2.18 mill/uL (4.70-6.10); White Blood Cell (WBC) Count 9.9 thou/uL (4.8-10.8)
[2019-06-04 03:55] LABS: Anion Gap 11 mmol/L (10-20); BUN (Urea Nitrogen) 19 mg/dL (8.4-25.7); Calc. Creatinine Clearance 61 mL/min (70-130); Calcium 8.3 mg/dL (7.8-10.44); Carbon Dioxide 24 mmol/L (23-31); Chloride 103 mmol/L (98-107); Estimated GFR-MDRD 62; Glucose 87 mg/dL (80-115); Sodium 135 mmol/L (136-145)
[2019-06-04] MEDS ORDERED: Senokot S 8.6-50 MG TAB PO PRN (09:40)
[2019-06-04] MEDS ORDERED: Acetaminophen 650 MG Suppository PR PRN (09:40)
[2019-06-04] MEDS ORDERED: Zolpidem Tartrate 5 MG TAB PO PRN (09:40)
[2019-06-04] MEDS ORDERED: Cepastat Lozenges 1 LOZ PO PRN (09:40)
[2019-06-04] MEDS ORDERED: Loratadine 10 MG TAB PO PRN (09:40)
[2019-06-04] MEDS ORDERED: hydrALAZINE 20 MG/ML VIAL SLOW IVP PRN (09:40)
[2019-06-04] MEDS ORDERED: Diabetic Tussin 200 MG/10 ML UDCUP PO PRN (09:40)
[2019-06-04] MEDS ORDERED: Artificial Tears 18 DROP/0.9 ML EA EYE PRN (09:40)
[2019-06-04] MEDS ORDERED: Sodium Chloride 0.65% Nasal 44 ML BOT EA NARE PRN (09:40)
[2019-06-04] MEDS ORDERED: Loperamide HCl 2 MG CAP PO PRN (09:40)
[2019-06-04] MEDS ORDERED: Bisacodyl 10 MG SUPP PR PRN (09:40)
[2019-06-04] MEDS ORDERED: Metoclopramide HCl 10 MG/2 ML VIAL IVP PRN (09:41)
[2019-06-04] MEDS: Pantoprazole 40 MG VIAL IVP SCH ×2 (10:47→21:00)
--- NOTE | 2019-06-04 11:26 | PDOC.HOSPP ---
- Subjective Encounter Date: 06/04/19 Encounter Time: 09:10 Subjective: Patient seen and examined. No new complaints. No overnight events - Objective Vital Signs & Weight: Vital Signs (12 hours) Temp Pulse Resp BP Pulse Ox 06/04/19 10:40 98.5 F 06/04/19 07:42 98 06/04/19 07:14 98.2 F 06/04/19 04:55 98.3 F 06/04/19 04:00 98.5 F 06/04/19 02:42 98.4 F 62 14 103/52 L 100 06/04/19 02:25 98.2 F 66 14 103/52 L 100 06/04/19 00:25 99 06/03/19 23:40 98.1 F Weight Weight 183 lb Most Recent Monitor Data Heart Rate from ECG 68 NIBP 112/53 NIBP BP-Mean 72 Respiration from ECG 15 SpO2 98 I&O: 06/03/19 06/04/19 06/05/19 06:59 06:59 06:59 Intake Total 1232 Output Total 600 Balance 632 Result Diagrams: 06/04/19 03:24 06/04/19 03:24 EKG Reviewed by me: Yes (nsr) Hospitalist ROS - Review of Systems Constitutional: denies: fever, chills, sweats, weakness, malaise, other ENT: denies: ear pain, ear discharge, nose pain, nose discharge, nose congestion , mouth pain, mouth swelling, throat pain, throat swelling, other Respiratory: denies: cough, dry, shortness of breath, hemoptysis, SOB with excertion, pleuritic pain, sputum, wheezing, other Cardiovascular: denies: chest pain, palpitations, orthopnea, paroxysmal noc. dyspnea, edema, light headedness, other Gastrointestinal: denies: nausea, vomiting, abdominal pain, diarrhea, constipation, melena, hematochezia, other Genitourinary: denies: dysuria, frequency, incontinence, hematuria, retention, other Musculoskeletal: denies: neck pain, shoulder pain, arm pain, back pain, hand pain, leg pain, foot pain, other Skin: denies: rash, lesions, susy, bruising, other - Medication Medications: Active Medications Generic Name Dose Route Start Last Admin Trade Name Freq PRN Reason Stop Dose Admin Potassium Chloride 40 meq/ 270 mls @ 135 mls/hr 06/03/19 16:44 06/04/19 05:16 Sodium Chloride IVPB 270 mls ASDIR PRN Administration FOR SERUM K+ 2.5 - 3.5 Sodium Chloride 1,000 mls @ 50 mls/hr 06/03/19 20:45 06/03/19 22:18 Normal Saline 0.9% IV 1,000 mls .Q20H PUJA Administration Pantoprazole Sodium 40 mg 06/04/19 09:00 06/04/19 10:47 Protonix IVP 40 mg Q12HR PUJA Administration Sodium Chloride 10 ml 06/03/19 21:00 06/04/19 10:47 Flush - Normal Saline IVF 10 ml Q12HR PUJA Administration - Exam General Appearance: NAD, awake alert Eye: PERRL, anicteric sclera ENT: normocephalic atraumatic, no oropharyngeal lesions Neck: supple, symmetric, no JVD, no thyromegaly, no lymphadenopathy Heart: RRR, no murmur, no gallops, no rubs Respiratory: CTAB, no wheezes, no rales, no ronchi Gastrointestinal: soft, non-tender, non-distended, normal bowel sounds Extremities: no cyanosis, no clubbing, no edema Skin: normal turgor, no lesions, no rashes Neurological: no weakness, no focal deficits Musculoskeletal: normal tone, normal strength Psychiatric: normal affect, normal behavior, A&O x 3 Hosp A/P (1) Syncope Code(s): R55 - SYNCOPE AND COLLAPSE Status: Acute Plan: due to symptomatic anemia (2) Symptomatic anemia Code(s): D64.9 - ANEMIA, UNSPECIFIED Status: Acute (3) GI bleed Code(s): K92.2 - GASTROINTESTINAL HEMORRHAGE, UNSPECIFIED Status: Acute (4) Hypokalemia Code(s): E87.6 - HYPOKALEMIA Status: Acute (5) PAF (paroxysmal atrial fibrillation) Code(s): I48.0 - PAROXYSMAL ATRIAL FIBRILLATION Status: Chronic (6) Acute kidney injury Code(s): N17.9 - ACUTE KIDNEY FAILURE, UNSPECIFIED Status: Acute (7) Lung cancer Code(s): C34.90 - MALIGNANT NEOPLASM OF UNSP PART OF UNSP BRONCHUS OR LUNG Status: Chronic (8) Dyslipidemia Code(s): E78.5 - HYPERLIPIDEMIA, UNSPECIFIED Status: Chronic (9) Chronic anticoagulation Code(s): Z79.01 - REHABILITATION TECH (CURRENT) USE OF ANTICOAGULANTS Status: Chronic - Plan old records reviewed/req, plan discussed w/ family 06/04/19- 3 unit PRBC given, today H & H 7, he is NPO and await GI evaluation, will repeat labs tomorrow, he may need more transfusion if Hb <7, continue IVF, he is not on anticoagulation due to severe anemia, hold on BP meds for his relative low BP
[2019-06-04] MEDS ORDERED: GoLYTELY 4,000 ml Bottle PO SCH (18:00)
[2019-06-04] MEDS: Sodium Chloride 0.9% 1,000 ML IV SCH (18:04)
--- NOTE | 2019-06-04 21:36 | CON ---
DATE OF CONSULTATION: 06/04/2019 REASON FOR CONSULTATION: Symptomatic anemia. CONSULTING PROVIDER: Kassandra Bal MD. HISTORY OF PRESENT ILLNESS: The patient is a 68-year-old male, with past medical history of gout, pulmonary hypertension, hyperlipidemia, peripheral vascular disease, atrial fibrillation, on Eliquis (last dose yesterday), and stage IV adenocarcinoma of lung, currently undergoing chemotherapy, presenting with complaints of generalized weakness. He states that during the course of his treatment for the adenocarcinoma of lung, he had been doing well until his last round of chemotherapy which was approximately 2 weeks ago. Since undergoing this chemotherapy, he has been having progressive weakness, decreased appetite, and inability to ambulate very well. This had been progressively getting worse over the last 2 weeks until earlier today when the patient exhibited a syncopal-like event that prompted his to call 911 and further evaluation in the ER. In the ER, he was noted to have a significantly decreased H and H and was successfully resuscitated with blood products and currently the patient is doing much better. Upon interviewing the patient, he states that he has not had any evidence of overt GI bleeding over the last 2 to 3 months and has been having approximately 1 solid bowel movement every 2 to 3 days that has been requiring increased straining in order to facilitate defecation. He has been using enemas and MiraLAX as needed in order to facilitate defecation as well. However, on further questioning, he stated that he did have 1 episode of bright red blood per rectum, that was a minimal amount, that was only present on the toilet paper, and he did have one dark bowel movement approximately 3 to 4 days ago that was solid in consistency, but unclear if this was a black stool at that time. He has not had any further recurrence of either the hematochezia or dark stools since they initially occurred. Otherwise, he denies any nausea, vomiting, fevers, chills, hematemesis, abdominal pain, dysphagia, or odynophagia. REVIEW OF SYSTEMS: 10-category review of systems was obtained with all responses negative except for the pertinent positives as listed in HPI. PAST MEDICAL HISTORY: As per HPI. PAST SURGICAL HISTORY: Aortofemoral bypass in 2018, left iliac embolus in 2018, MediPort placement in February 2019, left rotator cuff repair, and cardiac catheterization. FAMILY HISTORY: Denies any GI malignancies. SOCIAL HISTORY: Denies any tobacco, alcohol, or illicit drug use. OUTPATIENT MEDICATIONS: Reviewed. ALLERGIES: CODEINE. PHYSICAL EXAMINATION: VITAL SIGNS: Temperature 99, pulse 69, blood pressure 117/55, respiratory rate 21, saturating 97% on room air. GENERAL: The patient was lying in bed, in no acute distress. Alert and oriented x4. HEENT: Normocephalic, atraumatic. NECK: Supple. No JVD or scleral icterus noted. CARDIOVASCULAR: Regular rate and rhythm. 3/6 systolic murmur was heard at the left lower border in the midclavicular line. RESPIRATORY: Clear to auscultation bilaterally with no discernible wheezes or rales. ABDOMEN: Normoactive bowel sounds. Soft, nontender, nondistended. EXTREMITIES: No cyanosis, clubbing, or edema. LABORATORY DATA: CBC with a white blood cell count of 9.9, hemoglobin 7, hematocrit 20.3, platelets 239. Chemistry with a sodium of 135, potassium 3, chloride 103, CO2 of 24, BUN 19, creatinine 1.38, glucose 87, AST 19, ALT 22, alkaline phosphatase 81, total bilirubin 0.5. INR 1.8. IMAGING DATA: CT angiography of the chest was obtained on June 03, 2019, which showed no evidence of a central or segmental pulmonary embolus; however, there was stable spiculated parenchymal opacities involving the anterior segment of the right upper lobe, stable left upper lobe, pulmonary nodule was also seen as well as enlarged mediastinal and right hilar lymph nodes. ASSESSMENT AND PLAN: The patient is a 68-year-old male, with past medical history of gout, pulmonary hypertension, hyperlipidemia, peripheral vascular disease, atrial fibrillation on Eliquis, and stage IV adenocarcinoma of the lung, presenting with symptomatic anemia. Symptomatic anemia. The patient is presenting with a recent history of chemotherapy for his stage IV adenocarcinoma of the lung with his most recent round of chemotherapy approximately 2 weeks ago. Since undergoing this change in his chemotherapy to more of a "maintenance therapy," he has been experiencing progressive weakness, difficulty with ambulation, and decreased appetite; however, earlier today, he experienced what sounds like a presyncopal or syncopal-type episode that prompted evaluation in the ER. Once in the ER, he was noted to have a significantly decreased H and H when compared to baseline with no overt evidence of GI bleeding at this time. Given his recent history of chemotherapy administration, this could be a potential adverse effect with the chemotherapy or it could be an extension of the lung cancer itself albeit unlikely on the latter. Also within the differential is a possible gastrointestinal bleeding or the chemotherapy contributing to a possible gastrointestinal bleeding source that is cumulatively adding up to a significant anemia overtime via slow blood loss. Current differential could include esophagitis, gastritis, duodenitis, mucositis, peptic ulcer disease, vasculitis, arteriovenous malformation, Dieulafoy lesion, or possible upper gastrointestinal neoplasm. The patient underwent a colonoscopy in 06/2018 with pancolonic diverticulosis and 4 polyps removed from the descending hepatic flexure and ascending colons that were read as fragments of tubular adenomas. At this point, the likelihood of a GI malignancy contributing to his current anemia is unlikely. RECOMMENDATIONS: 1. We would continue to trend his H and H and transfuse as necessary to maintain an H and H of 7/21. 2. Continue to monitor clinically for signs of active GI bleeding. 3. We would place the patient on a clear liquid diet tonight with n.p.o. at midnight in anticipation for procedures tomorrow. 4. We would plan for both EGD and colonoscopy tomorrow for possible bleeding source contributing to his symptomatic anemia. If both EGD and colonoscopy are negative, this could be possibly considered an adverse effect of the chemotherapy with further follow up with the patient's oncologist. We will continue to follow. Please call with any questions. Job ID: [id number]
[2019-06-05 03:36] LABS: #Basophils 0.1 thou/uL (0.0-0.2); #Eosinphils 0.1 thou/uL (0.0-0.7); #Lymphocytes 1.5 thou/uL (1.20-3.40); #Neutrophils 7.7 thou/uL (1.40-6.50); %Basophils 0.6 % (0.0-1.0); %Eosinophils 0.8 % (0.0-10.0); %Lymphocytes 14.4 % (21.0-51.0); %Monocytes 9.4 % (0.0-10.0); %Neutrophils 74.9 % (42.0-75.0); Hemoglobin 8.7 g/dL (14.0-18.0); Mean Corpuscular HGB CONC 34.8 g/dL (32.0-36.0); Mean Corpuscular Hemoglobin 32.7 pg (27.0-31.0); Mean Platelet Volume 6.5 fL (7.4-10.4); Platelet Count 277 thou/uL (130-400); RBC Distribution Width 17.7 % (11.5-14.5); Red Blood Cell (RBC) Count 2.67 mill/uL (4.70-6.10); White Blood Cell (WBC) Count 10.3 thou/uL (4.8-10.8)
[2019-06-05 03:54] LABS: Anion Gap 14 mmol/L (10-20); BUN (Urea Nitrogen) 12 mg/dL (8.4-25.7); Calc. Creatinine Clearance 68 mL/min (70-130); Calcium 8.4 mg/dL (7.8-10.44); Carbon Dioxide 23 mmol/L (23-31); Chloride 103 mmol/L (98-107); Estimated GFR-MDRD 71; Glucose 93 mg/dL (80-115); Potassium 3.3 mmol/L (3.5-5.1); Sodium 137 mmol/L (136-145)
[2019-06-05] MEDS ORDERED: Folic Acid 1 MG TAB PO SCH (09:00)
[2019-06-05] MEDS ORDERED: Ondansetron HCl/PF 4 MG/2 ML Vial IVP PRN (09:48)
[2019-06-05] MEDS ORDERED: Promethazine HCl 25 MG/ML VIAL IM PRN (09:48)
[2019-06-05] MEDS ORDERED: Promethazine HCl 25 MG/ML VIAL SLOW IVP PRN (09:48)
--- NOTE | 2019-06-05 10:15 | PDOC.HOSPP ---
- Subjective Encounter Date: 06/05/19 Encounter Time: 09:40 Subjective: Patient seen and examined. No new complaints. No overnight events - Objective Vital Signs & Weight: Vital Signs (12 hours) Temp Pulse Ox 06/05/19 08:00 99 06/05/19 07:16 98.5 F 06/05/19 03:56 98.6 F 06/04/19 23:41 98.5 F Weight Weight 183 lb 14.4 oz Most Recent Monitor Data Heart Rate from ECG 67 NIBP 126/61 NIBP BP-Mean 82 Respiration from ECG 19 SpO2 99 I&O: 06/04/19 06/05/19 06/06/19 06:59 06:59 06:59 Intake Total 1232 3100 Output Total 600 2750 Balance 632 350 Result Diagrams: 06/05/19 03:20 06/05/19 03:20 Hospitalist ROS - Review of Systems Eyes: denies: pain, vision change, conjunctivae inflammation, eyelid inflammation, redness, other ENT: denies: ear pain, ear discharge, nose pain, nose discharge, nose congestion , mouth pain, mouth swelling, throat pain, throat swelling, other Respiratory: denies: cough, dry, shortness of breath, hemoptysis, SOB with excertion, pleuritic pain, sputum, wheezing, other Cardiovascular: denies: chest pain, palpitations, orthopnea, paroxysmal noc. dyspnea, edema, light headedness, other Gastrointestinal: denies: nausea, vomiting, abdominal pain, diarrhea, constipation, melena, hematochezia, other Genitourinary: denies: dysuria, frequency, incontinence, hematuria, retention, other Musculoskeletal: denies: neck pain, shoulder pain, arm pain, back pain, hand pain, leg pain, foot pain, other - Medication Medications: Active Medications Generic Name Dose Route Start Last Admin Trade Name Freq PRN Reason Stop Dose Admin Potassium Chloride 40 meq/ 270 mls @ 135 mls/hr 06/03/19 16:44 06/04/19 05:16 Sodium Chloride IVPB 270 mls ASDIR PRN Administration FOR SERUM K+ 2.5 - 3.5 Sodium Chloride 1,000 mls @ 50 mls/hr 06/03/19 20:45 06/04/19 18:04 Normal Saline 0.9% IV 1,000 mls .Q20H PUJA Administration Pantoprazole Sodium 40 mg 06/04/19 09:00 06/04/19 21:00 Protonix IVP 40 mg Q12HR PUJA Administration Sodium Chloride 10 ml 06/03/19 21:00 06/04/19 22:13 Flush - Normal Saline IVF 10 ml Q12HR PUJA Administration - Exam General Appearance: NAD, awake alert Eye: PERRL, anicteric sclera ENT: normocephalic atraumatic, no oropharyngeal lesions Neck: supple, symmetric, no JVD, no thyromegaly Heart: RRR, no murmur, no gallops, no rubs Respiratory: CTAB, no wheezes, no rales, no ronchi Gastrointestinal: soft, non-tender, non-distended, normal bowel sounds Extremities: no cyanosis, no clubbing, no edema Skin: normal turgor, no lesions, no rashes Neurological: cranial nerve grossly intact, normal sensation to touch, no focal deficits Musculoskeletal: normal tone, normal strength, no muscle wasting Psychiatric: normal affect, normal behavior, A&O x 3 Hosp A/P (1) Syncope Code(s): R55 - SYNCOPE AND COLLAPSE Status: Acute Plan: due to symptomatic anemia (2) Symptomatic anemia Code(s): D64.9 - ANEMIA, UNSPECIFIED Status: Acute (3) GI bleed Code(s): K92.2 - GASTROINTESTINAL HEMORRHAGE, UNSPECIFIED Status: Suspected (4) Hypokalemia Code(s): E87.6 - HYPOKALEMIA Status: Acute (5) PAF (paroxysmal atrial fibrillation) Code(s): I48.0 - PAROXYSMAL ATRIAL FIBRILLATION Status: Chronic (6) Acute kidney injury Code(s): N17.9 - ACUTE KIDNEY FAILURE, UNSPECIFIED Status: Resolved (7) Lung cancer Code(s): C34.90 - MALIGNANT NEOPLASM OF UNSP PART OF UNSP BRONCHUS OR LUNG Status: Chronic (8) Dyslipidemia Code(s): E78.5 - HYPERLIPIDEMIA, UNSPECIFIED Status: Chronic (9) Chronic anticoagulation Code(s): Z79.01 - CLINICAL REVIEWER (CURRENT) USE OF ANTICOAGULANTS Status: Chronic - Plan old records reviewed/req, plan discussed w/ family 06/04/19- 3 unit PRBC given, today H & H 7, he is NPO and await GI evaluation, will repeat labs tomorrow, he may need more transfusion if Hb <7, continue IVF, he is not on anticoagulation due to severe anemia, hold on BP meds for his relative low BP 06/05/19- H & H stable, today plan for EGD and colonoscopy, after procedure transfer to medical floor, start diet, repeat labs tomorrow, if stable H & H, tomorrow plan for discharge.
--- NOTE | 2019-06-05 10:36 | OP ---
DATE OF PROCEDURE: 06/05/2019 PROCEDURES PERFORMED: Esophagogastroduodenoscopy (diagnostic), colonoscopy (diagnostic). INDICATIONS FOR PROCEDURE: Symptomatic anemia. DESCRIPTION OF PROCEDURE: After the risks and benefits of the procedures were explained to the patient including risks of bleeding, infection, perforation, reactions to anesthesia, aspiration and/or pain, informed consent was obtained. The patient was then taken to the endoscopy suite, where deep sedation was administered via propofol and anesthesia support. Once adequate sedation was achieved and the patient was placed in the left lateral decubitus position, the standard gastroscope was introduced into the mouth with intubation of the esophagus, stomach, and the proximal small intestines with the findings listed below. Upon conclusion of this portion of the procedure, the patient tolerated the procedure well with no immediate perioperative complications. Upon conclusion of this portion of the procedure, all equipment was removed from the patient and the bed was rotated 180 degrees in anticipation of the colonoscopy. Once the patient was in adequate position, a digital rectal examination was performed followed by introduction of the standard colonoscope, which was then advanced to the terminal ileum without difficulty. The quality of the prep was excellent. The patient tolerated this portion of the procedure well with no immediate perioperative complications. Upon conclusion of the procedure, all equipment was removed from the patient, and he was transferred to PACU in satisfactory condition. EGD FINDINGS: Esophagus: Normal-appearing mucosa was seen in the proximal, mid, and distal esophagus. Both the diaphragmatic pinch and GE junction were well seen at 45 cm past the incisors. There was no evidence of erosions, ulcerations, mass, lesions, or active/recent bleeding. Stomach: Normal-appearing mucosa was seen in the gastric cardia, fundus, body, greater curvature, antrum, and incisura. There was no evidence of erosions, ulcerations, mass, lesions, or active/recent bleeding. Duodenum: A minimal amount of patchy mucosal erythema was seen within the duodenal bulb, but did not display any high-risk stigmata or any evidence of active/recent bleeding. Otherwise, normal-appearing mucosa was seen within the second portion of the duodenum. There was no evidence of ulcerations, mass, lesions, or active/recent bleeding. IMPRESSION: 1. Mild duodenitis within the duodenal bulb. 2. Otherwise normal upper endoscopy. 3. No etiology for the patient's anemia seen during this portion of the exam. COLONOSCOPY FINDINGS: Digital rectal exam, normal findings were seen on external examination. COLON FINDINGS: Normal-appearing mucosa was seen within the terminal ileum as well as at the ileocecal valve and appendiceal orifice. Normal-appearing mucosa was then seen within the cecum, ascending colon, transverse colon, descending colon, sigmoid colon, and rectum. Small to medium-sized internal hemorrhoids were seen on rectal retroflexion, but did not exhibit any evidence of recent bleeding. IMPRESSION: 1. Small to medium-sized nonbleeding internal hemorrhoids. 2. Otherwise normal colonoscopy. 3. No etiology for the patient's anemia was seen during this portion of the exam. RECOMMENDATIONS: 1. Would continue to trend his H and H and transfuse as necessary to maintain an H and H of 7/21. 2. Continue to monitor clinically for signs of active GI bleeding. 3. Would have the patient follow up with his oncologist for possible re-evaluation of his chemotherapy regimen that maybe generating anemia. 4. Given normal findings and normal imaging. Capsule endoscopy is not necessarily indicated at this time. 5. Can restart the patient on a regular diet. From a GI standpoint, the patient could be potentially discharged with further monitoring of his H and H. We will sign off at this time. Please call with any questions. Job ID: [id number]
[2019-06-05 10:45] VITALS: TEMP 98.4
--- NOTE | 2019-06-05 12:30 | DIS ---
DATE OF ADMISSION: 06/03/2019 DATE OF DISCHARGE: 06/05/2019 PRIMARY CARE PHYSICIAN: Zachary Ferguson MD DISCHARGE DISPOSITION: Home. PRIMARY DISCHARGE DIAGNOSES: 1. Syncope due to symptomatic anemia. 2. Symptomatic anemia, multifactorial, status post 3 units of transfusion. 3. Hypokalemia, corrected. 4. Acute kidney injury, improved. SECONDARY DISCHARGE DIAGNOSES: Paroxysmal atrial fibrillation, chronic anticoagulation, lung cancer, peripheral vascular disease, and dyslipidemia. PRIMARY PROCEDURE/OPERATION: Upper endoscopy showed duodenitis, colonoscopy showed hemorrhoid. RADIOLOGICAL INVESTIGATION: CT angio negative for pulmonary embolism. SIGNIFICANT LABORATORY DATA: WBC 10.3, hemoglobin 8.7, and platelet 277. INR 1.8. Sodium 137 and creatinine 1.23. LFT normal. Urinalysis normal. DISCHARGE MEDICATIONS: The patient will continue; 1. Amiodarone as per home dosage. 2. Lipitor 20 mg daily. 3. Coreg 3.125 mg b.i.d. 4. Folic acid 1 mg daily. 5. Lasix 40 mg daily. 6. Prednisone 5 mg daily. 7. Terazosin 5 mg p.o. b.i.d. 8. Eliquis 5 mg b.i.d. 9. Aspirin 81 mg p.o. daily. 10. Potassium chloride 20 mEq p.o. b.i.d. CONTRAINDICATION: None. CODE STATUS: Full code. INPATIENT WATER CONSERVATION SPECIALIST: Dr. Jovi Cantrell was consulted, who did upper endoscopy and lower endoscopy. TEST RESULTS PENDING ON DISCHARGE: None. ALLERGIES: CODEINE. DISCHARGE PLAN: Posthospital, the patient will follow up with primary care physician, oncologist as instructed. HOSPITAL COURSE: A 68-year-old male with above-mentioned medical problem, who was admitted by Dr. Kassandra Bal. Please see her H and P for further details. The patient had a syncopal episode and he was brought to emergency room. On admission, his hemoglobin was 4.4. He was given total 3 units of blood transfusion and his hemoglobin improved to 8.7. The patient also received chemotherapy 2 weeks ago for his lung cancer. The patient did not provide any classic history of GI bleed, but we suspected that and that is why we consulted test tube maker for evaluation. They did upper and lower endoscopy. Upper endoscopy showed mild duodenitis without any acute process and colonoscopy showed hemorrhoid without any active bleeding. On admission, he was dehydrated. He had hyponatremia, hypokalemia, and acute kidney injury, which was improved with IV fluid. The patient is doing much better. He is hemodynamically stable and he wants to go home today. The patient is seen and examined. The patient is at bedside today. Please see my progress note from today for further detail. Job ID: [id number]
[2019-06-05] MEDS ORDERED: Lidocaine 1% PF 5 ML VIAL ONE (16:10)
[2019-06-05] MEDS ORDERED: PROPOFOL 200 MG/20 ML VIAL ONE (16:10)
[2019-06-05] MEDS ORDERED: Atorvastatin Calcium 20 MG TAB PO SCH (21:00)
== END 2019-06-05 12:54 | disposition home or self-care (01) | DRG 812 ==
LOC: ERS 14:13 → IMCU/EMU 18:01
PROVIDERS: ADMIT Internal Medicine; ATTEND Internal Medicine
PROC: 30233N1 Transfusion of Nonautologous Red Blood Cells into Peripheral Vein, Percutaneous Approach (ICD-10-PCS; principal; 2019-06-03)
PROC: 0DJ08ZZ Inspection of Upper Intestinal Tract, Via Natural or Artificial Opening Endoscopic (ICD-10-PCS; 2019-06-05)
PROC: 0DJD8ZZ Inspection of Lower Intestinal Tract, Via Natural or Artificial Opening Endoscopic (ICD-10-PCS; 2019-06-05)
DX: D64.9 Anemia, unspecified (principal); N17.9 Acute kidney failure, unspecified; C34.90 Malignant neoplasm of unspecified part of unspecified bronchus or lung; E87.1 Hypo-osmolality and hyponatremia; I13.0 Hypertensive heart and chronic kidney disease with heart failure and stage 1 through stage 4 chronic kidney disease, or unspecified chronic kidney disease; N18.4 Chronic kidney disease, stage 4 (severe); K50.00 Crohn's disease of small intestine without complications; E87.6 Hypokalemia; E86.0 Dehydration; I48.0 Paroxysmal atrial fibrillation; I73.9 Peripheral vascular disease, unspecified; I48.2 Chronic atrial fibrillation; E78.5 Hyperlipidemia, unspecified; K29.80 Duodenitis without bleeding; K59.00 Constipation, unspecified; K64.8 Other hemorrhoids; I50.9 Heart failure, unspecified; I25.10 Atherosclerotic heart disease of native coronary artery without angina pectoris; N40.0 Benign prostatic hyperplasia without lower urinary tract symptoms; M10.9 Gout, unspecified; Z79.01 Long term (current) use of anticoagulants; Z95.1 Presence of aortocoronary bypass graft; Z88.8 Allergy status to other drugs, medicaments and biological substances; J44.9 Chronic obstructive pulmonary disease, unspecified; Z87.891 Personal history of nicotine dependence; I27.20 Pulmonary hypertension, unspecified
CPT/HCPCS: 36415; 36430; 71275; 80048; 80053; 81003; 84484; 85025; 85610; 85730; 86850; 86900; 86901; 93005; 96361; 96374; C9113; C9132; J2001; J2704; J3430; J3480; J7050; P9016; Q9966

== ENCOUNTER 2019-06-07 10:24 | Day surgery (SDC) | payer MEDICARE ==
[~2019-06-07 10:24] MED LIST changes: +Cyanocobalamin 1000 MCG/ML VIAL SC SCH; +Dexamethasone 4 MG TAB PO SCH; -ISOVUE-370 76%-LOCM 1 ML ONE; +Ondansetron HCl/PF 15 MG in Sodium Chloride 0.9% 50 ML IVPB SCH; +Pembrolizumab 200 MG in Sodium Chloride 0.9% 250 ML 250 ML IV SCH; +Pemetrexed 1,000 MG in Sodium Chloride 0.9% 60 ML IVPB SCH
[2019-06-07] MEDS ORDERED: Sodium Chloride 0.9% 20 ML ONE (10:29)
[2019-06-07 11:00] VITALS: BP 115/59; TEMP 98.1
== END 2019-06-07 12:49 | disposition home or self-care (01) ==
LOC: ONC/OP 10:24
PROVIDERS: ATTEND Internal Medicine Hematology & Oncology
DX: Z51.11 Encounter for antineoplastic chemotherapy (principal); C34.81 Malignant neoplasm of overlapping sites of right bronchus and lung; Z88.5 Allergy status to narcotic agent
CPT/HCPCS: 96413; J1642; J2405; J7050; J9271

== ENCOUNTER 2019-06-24 12:15 | Inpatient (IN) | payer MEDICARE, OTHER ==
--- NOTE | 2019-06-24 12:49 | CT ---
CT Brain WO Con History: Stroke protocol Comparison: Brain MRI January 2019 Findings: Loss of normal cortical medullary differentiation of the right insular cortex. No acute hem orrhage. No midline shift or mass effect. Mild mucosal sinus disease of the ethmoids. Impression: Subtle loss of cortical medullary differentiation right insula concerning for early infar ction. Code CR: ER physician notified of findings via telephone 12:44 PM
[2019-06-24] MEDS ORDERED: Lidocaine 1% (PF) 30 ML VIAL ONE (13:08)
[2019-06-24] MEDS ORDERED: Heparin 10,000 UNITS/1 ML VIAL ONE (13:08)
[2019-06-24 13:11] LABS: #Basophils 0.1 thou/uL (0.0-0.2); #Eosinphils 0.1 thou/uL (0.0-0.7); #Lymphocytes 1.4 thou/uL (1.20-3.40); #Monocytes 0.7 thou/uL (0.11-0.59); #Neutrophils 4.9 thou/uL (1.40-6.50); %Basophils 1.1 % (0.0-1.0); %Eosinophils 1.4 % (0.0-10.0); %Lymphocytes 19.3 % (21.0-51.0); %Monocytes 10.3 % (0.0-10.0); %Neutrophils 67.9 % (42.0-75.0); Hemoglobin 8.6 g/dL (14.0-18.0); Mean Corpuscular HGB CONC 33.6 g/dL (32.0-36.0); Mean Corpuscular Hemoglobin 31.5 pg (27.0-31.0); Mean Corpuscular Volume 93.8 fL (78.0-98.0); Platelet Count 247 thou/uL (130-400); RBC Distribution Width 15.1 % (11.5-14.5); Red Blood Cell (RBC) Count 2.71 mill/uL (4.70-6.10); White Blood Cell (WBC) Count 7.2 thou/uL (4.8-10.8)
[2019-06-24 13:17] LABS: INR-International Normal Ratio 1.7; PTT 31.5 SEC (22.9-36.1); Prothrombin Time 20.3 SEC (12.0-14.7)
[2019-06-24 13:33] LABS: ALT (SGPT) 18 U/L (8-55); AST (SGOT) 19 U/L (5-34); Albumin 3.8 g/dL (3.4-4.8); Alkaline Phosphatase 134 U/L (40-110); Anion Gap 13 mmol/L (10-20); BUN (Urea Nitrogen) 20 mg/dL (8.4-25.7); Bilirubin, Total 0.6 mg/dL (0.2-1.2); CK (CPK) 215 U/L (30-200); Calc. Creatinine Clearance 0 mL/min (70-130); Carbon Dioxide 26 mmol/L (23-31); Chloride 99 mmol/L (98-107); Estimated GFR-MDRD 44; Globulin 3.1 g/dL (2.4-3.5); Glucose 104 mg/dL (80-115); Protein, Total 6.9 g/dL (5.8-8.1); Sodium 134 mmol/L (136-145)
--- NOTE | 2019-06-24 13:33 | CT ---
CT ANGIOGRAM NECK WITH CONTRAST CT ANGIOGRAM BRAIN WITH CONTRAST CT PERFUSION BRAIN WITH CONTRAST: DATE: 06/24/2019 HISTORY: 68-year-old male with acute stroke. Loss of consciousness. Left-sided neglect and left sided weakness . On chemotherapy for cancer treatment. Dr. Vigil reviewed the CT angiogram and reported the M1 segment right MCA clot by telephone to Dr. Laughlin of the emergency Department before 1:[address] Cabrales reported the findings of the perfusion scan by telephone to Dr. Laughlin at 1:09 PM, and to Dr Shefali Martinez at 1:13 PM. TECHNIQUE: After IV contrast injection, arterial bolus chasing technique scan performed from AP window to vertex of head. Coronal and sagittal 3-D MIP reconstructions. Postcontrast multiple axial scans through the midportion of brain. Cerebral blood volume, cerebral blood flow, mean transit time, IRF. FINDINGS: There are multiple noncalcified enlarged upper mediastinal lymph nodes. Spiculated pulmonary lesion in anterior segment of right upper lobe. Brachiocephalic: No high-grade stenosis. Right subclavian: No high-grade stenosis. Left subclavian: No high-grade stenosis. Right vertebral (cervical): Diminutive. No short segment high-grade stenosis identified. Left vertebral: (Cervical): Diminutive. Bilaterally codominant. No short segment high-grade stenosis identified. Right common carotid: No focal short segment high-grade stenosis. Left common carotid: Bovine origin from brachiocephalic. No focal short segment high-grade stenosis. Right internal carotid (cervical): Small focal scattered calcified plaque proximally. Mild stenosis. No high-grade stenosis. Left internal carotid (cervical): Small focal scattered calcified plaque proximally. Mild stenosis. N o high-grade stenosis. Right MCA: Abrupt lack of contrast representing clot and occlusion of lateral half of M1 segment. Left MCA: No clot or high-grade stenosis. Right ETHAN: A1 and A2 segments patent Left ETHAN: A1 and A2 segments patent. Intracranial vertebral: Codominant and patent no high-grade short segment stenosis. Basilar: No high-grade short segment stenosis. Right EXECUTIVE TEAM LEADER: Patent and clear. Posterior communicating artery patent. Left EXECUTIVE TEAM LEADER: Patent and clear. Multifocal patchy regions of decreased cerebral blood flow and prolonged mean transit time in the rig ht cerebral hemisphere, including right basal ganglia as well as portions of the right parietal, frontal, and temporal lobes. In comparison, there are smaller regions of cerebral blood volume (relat danyelle to the volume of abnormal mean transit time and blood flow) in the right MCA territory, most notably in the right basal ganglia and right posterior parietal region. IMPRESSION: 1) M1 segment thrombus in right middle cerebral artery. 2) right middle cerebral artery territory acute infarctions, surrounded by significantly larger penum bra of yet an infarcted, ischemic brain parenchyma.
[2019-06-24] MEDS ORDERED: Fentanyl 250 MCG/5 ML VIAL ONE (13:39)
[2019-06-24 14:02] LABS: CKMB 1.9 ng/mL (0-6.6)
[2019-06-24] MEDS ORDERED: SUGAMMADEX SODIUM 200 MG/2 ML VIAL ONE (14:25)
--- NOTE | 2019-06-24 15:43 | CCL ---
DATE OF SERVICE: 06/24/19 SURGEON: Jeremy Martinez M.D. PACK WORKER: None. INDICATION: Ischemic stroke. DIAGNOSIS: Right M1 segment occlusion. PROCEDURE: Attempt at cerebral angiography. ANESTHESIA: General and local. TECHNIQUE: The patient was brought into the angiogram suite and placed under general anesthesia. Both groins wer e prepped and draped in the usual sterile fashion. Following an appropriate operative pause, a 5 Fren ch micropuncture set was used to gain access to the right common femoral artery. While there was egre ss of blood through the needle, we were unable to pass the wire on either the right side or the left side after multiple attempts. Patient does have a history of fem-pop bypass in this region and is als o a nonvasculopath. The procedure was therefore aborted secondary to inability to gain access and pa ss appropriate catheters.
--- NOTE | 2019-06-24 15:46 | PRG ---
DATE OF SERVICE: 06/24/2019 Mr. Floyd is a 68-year-old gentleman, who late morning was noted to have abrupt onset left hemiparesis. He was brought to the ER, where he underwent an imaging in the way of a CT scan as well as CT angiogram, which revealed the presence of occlusion of the midportion of the right middle cerebral artery along the M1 segment. Subsequent to that time, he had a CT perfusion study performed. I spoke with Dr. Cabrales and he states there is a substantial salvageable penumbra present. The patient does have multiple medical comorbidities including advanced stage lung cancer. For that reason, a decision was made not to administer IV tPA. He nonetheless remains a reasonable candidate for mechanical thrombectomy. The procedure was discussed with the family and they have offered and provided informed consent. The plan will be judicious deployment of mechanical thrombectomy in the cathode maker. Job ID: [id number]
[2019-06-24 16:02] VITALS: BMI 23.9
--- NOTE | 2019-06-24 16:04 | RAD ---
Chest one view HISTORY: CVA. FINDINGS: Cardiac silhouette is magnified by projection. Pulmonary vasculature are unremarkable. Medi astinum is midline with right internal jugular Port-A-Cath. No lobar consolidation or evidence of pneumothorax. Postoperative changes left shoulder. cardiac monitor technician leads overlie the chest. IMPRESSION: No active cardiopulmonary abnormalities are demonstrated.
[2019-06-24] MEDS ORDERED: Glycopyrrolate 0.2 MG/ML 5 ML SYRINGE ONE (16:27)
[2019-06-24] MEDS ORDERED: PROPOFOL 200 MG/20 ML VIAL ONE (16:27)
[2019-06-24] MEDS ORDERED: Rocuronium Bromide 10 MG/ML (10ML VIAL) ONE (16:27)
[2019-06-24] MEDS ORDERED: PHENYLEPHRINE-NS 100 MCG/ML 10 ML SYRINGE ONE (16:27)
[2019-06-24] MEDS ORDERED: ePHEDrine 50 MG/ML VIAL ONE (16:27)
--- NOTE | 2019-06-24 17:10 | CON ---
DATE OF CONSULTATION: 06/24/2019 SERVICE: Pulmonary Medicine. HISTORY OF PRESENT ILLNESS: The patient is a 68-year-old male with past medical history significant for peripheral vascular disease. He was in his usual state of health when he an abrupt onset of neurologic changes. He is brought to the emergency department. Ultimately, he was discovered to have a stroke. A vascular procedure was attempted, but because of his severe peripheral vascular disease and history of bifem bypass, access could not be established. He was not a candidate for tPA. As such, he was tucked into the ICU for close neuro monitoring. The patient is awake, but somnolent. He follows some simple command, particularly with movement on the left. Prior to this event, he was in his usual state of health and did not endorse any fevers, chills, cough, sputum production, nausea, vomiting, or diarrhea. PAST MEDICAL HISTORY: 1. Adenocarcinoma of the lung, stage IV. 2. Atrial fibrillation, permanent. 3. Gout. 4. Dyslipidemia. 5. Peripheral vascular disease, severe. PAST SURGICAL HISTORY: 1. Aortofemoral bypass, bilateral. 2. Left iliac embolus, status post removal. 3. MediPort placement. 4. Left rotator cuff repair. 5. Cardiac catheterization. SOCIAL HISTORY: The patient is and lives with his family. He has no use for alcohol, tobacco, or illicit drugs. He has a remote history of smoking, but quit. He has no exposure to chemicals, dust, asbestos, or tuberculosis. FAMILY HISTORY: Noncontributory. ALLERGIES: CODEINE. MEDICATIONS: List of his inpatient medications was reviewed. No specific updates were made at this time. REVIEW OF SYSTEMS: General; head, ears, eyes, nose, throat; cardiovascular; respiratory; GI; ; musculoskeletal; neurologic; and skin are negative except as mentioned in the HPI. PHYSICAL EXAMINATION: VITAL SIGNS: Afebrile, pulse 58, blood pressure 115/53, respirations 15, and saturation 100% on room air. GENERAL: The patient is awake and alert, in no apparent distress. HEENT: Normocephalic and atraumatic. Sclerae white. Conjunctivae pink. Oral mucosa is moist without lesions. LUNGS: Decent air entry. There is no prolonged expiratory phase. Rhonchi are present, but clear comfortably with cough. There is no wheezing. HEART: Normal rate and regular. ABDOMEN: Soft, nontender, and nondistended. Bowel sounds are positive. MUSCULOSKELETAL: No cyanosis or clubbing. There is no pitting in the bilateral lower extremities. NEUROLOGIC: The patient has paresis of the left upper and lower extremities. He has good strength in the right upper and lower extremities. He will follow some simple commands, but he is having significant sleepiness. He is protecting his airway and demonstrates vigorous cough. He is breathing spontaneously, his pupils are equal, round, reactive. LABORATORY DATA: WBC 7.2, hemoglobin 8.6 and at baseline, platelets 247,000. INR 1.7. Creatinine 1.85, slightly above baseline. Basic metabolic profile and liver function studies are otherwise unremarkable. Troponin is below the assay limit of 0.01. Lactate 2.6. IMAGIN. CT of the head demonstrates subtle effacement of the sulci on the right. 2. CTA of the head and neck clearly demonstrates an M1 thrombus. 3. Chest x-ray demonstrates no acute cardiopulmonary abnormality. Port-a- catheter is in good position. ASSESSMENT: 1. Cerebrovascular accident. 2. Atrial fibrillation, permanent. 3. Lung cancer, metastatic. DISCUSSION AND PLAN: The patient will remain in the ICU. We will do frequent neuro checks on him. Aspirin will be provided P.R. Physical Therapy, Occupational Therapy, and Speech Pathology will be asked to help this patient regain function. We will watch his neurologic and respiratory status closely over the next 24 hours. If he is stable, he can be transitioned to the floor in the morning. Pulmonary/Critical Care will continue to follow in this location. 70 minutes have been devoted to this patient in various activities. I personally reviewed all imaging studies and laboratory data noted within this document. For fifty percent of this time, I was interacting with the patient at the bedside or coordinating care with the care team. For the remainder of the time I was immediately available to the patient in the hospital unit. Job ID: [id number] [facility]
[2019-06-24 17:36] LABS: Lactic Acid 1.2 mmol/L (0.5-2.2)
[2019-06-24] MEDS ORDERED: Sodium Chloride 0.9% 1,000 ML IV SCH (18:15)
--- NOTE | 2019-06-24 20:34 | CON ---
DATE OF CONSULTATION: PRIMARY CARE PHYSICIAN: Zachary Ferguson MD REASON FOR CONSULTATION: Aid in medical management. REASON FOR ADMISSION: An acute cerebrovascular accident. HISTORY OF PRESENT ILLNESS: Mr. Floyd is a 68-year-old gentleman, who is currently encephalopathic and unable to give me any history. The history is obtained from discussion with the over the telephone, but the patient's says that he was in his usual state of health until this morning. He got up at around 7:00 a.m. and watched TV and around 10:30, they ate breakfast and she says at that time he was planning to go take a shower. She says she went to check on him about 20 minutes later and saw him sitting on the bed with his shirt off and one sock on and one sock off and he was in and out of consciousness. She called 911 and they brought him to the emergency room for evaluation. In the ER, they were concerned for an acute stroke. A CT scan was done, which was essentially negative. A CT angiogram was done, which showed a thrombus in the right MCA distribution. The stroke code was activated and Dr. Martinez was called. The plan was to try to perform an embolectomy. However, due to the patient's severe peripheral vascular disease, they were unable to assess his arteries and the procedure had to be aborted. He was then brought into the ICU for observation. The family notes that he appears to be somewhat weak on the left side, but otherwise other than being in and out of "consciousness," they do not note any other changes. The patient himself is unable to give me a history. He will awaken. He will open his eyes. He will look at you. He will smile and tried to mouth the word, but he is unable to talk. REVIEW OF SYSTEMS: Unobtainable due to the patient's current mental status. PAST MEDICAL HISTORY: Significant for stage IV lung cancer. He is currently undergoing chemotherapy and is on maintenance Keytruda. He also has severe anemia, peripheral vascular disease, atrial fibrillation. PAST SURGICAL HISTORY: He has had bypass surgery on his legs for peripheral vascular disease, a MediPort placed. He also had an EGD and colonoscopy for the severe anemia in which according to the was negative. ALLERGIES: TO CODEINE, WHICH CAUSES AN ITCH. SOCIAL HISTORY: He is . He is a former smoker as well as he formally drank, but quit about 2 years ago. He would like to be a full code. FAMILY HISTORY: Both parents are . His father had tuberculosis. He is an only child and therefore no other family history is available. CURRENT MEDICATIONS: Include: 1. Prednisone 5 mg daily. 2. Albuterol. 3. Amiodarone 200 mg daily. 4. Atorvastatin 20 mg daily. 5. Eliquis 5 mg twice a day. 6. Terazosin 5 mg twice daily. 7. Carvedilol 3.125 mg daily. 8. Aspirin 81 mg daily. 9. Lasix 40 mg daily. 10. Potassium chloride 10 mEq a day. PHYSICAL EXAMINATION: GENERAL: Unable to assess orientation. However, he is a bit somnolent. He is well developed and well nourished. VITAL SIGNS: Blood pressure was 118/60, heart rate 64, respiratory rate of 23, temperature is 98.8. HEENT: Pupils are equal, round, and reactive. Extraocular muscles are centrally intact. Throat, there is no erythema. NECK: There is no adenopathy. No bruits. LUNGS: Clear to auscultation. He does have occasional rhonchi. CARDIOVASCULAR: He has normal S1 and S2. I did not appreciate an S3 or S4. No murmurs, clicks, or rubs. ABDOMEN: Soft. Positive for bowel sounds. There is no rebound or guarding. EXTREMITIES: There is no clubbing, no cyanosis, no edema. NEUROLOGIC: He does not have a facial droop that I can appreciate. He is neglecting the left side. He did not squeeze my hand with the left hand, but was able to squeeze with the right, but other than about he was unable to follow directions with regard to lifting either hand and he is moving the right extremity, but does not appear to be moving the left and his reflexes are diminished on the left. LABORATORY DATA AND IMAGING: His CBC; the white blood cell count 7.2, hemoglobin 8.6, hematocrit is 25.4, and platelet count is 247. INR is 1.7. Sodium is 134, potassium 4.0, chloride is 99, CO2 is 26, BUN of 20, creatinine 1.84, glucose is 104. Lactic acid was 2.6. Troponin is 0.609. Chest x-ray, he has some cardiomegaly, but no increase in pulmonary vascular markings. No evidence of any effusions or infiltrates. This is by my reading and also had a CT scan that did not show any acute infarcts also by my reading. ASSESSMENT: 1. This is a pleasant 68-year-old gentleman, who is being admitted for an acute stroke. Unfortunately, the attempted embolectomy was unsuccessful due to inability to access his arteries. He will be monitored in the ICU overnight. Normally, we would get an echocardiogram. However, in discussion with the patient's , she tells me that Dr. Alberto has recently done an echo and what sounds like a transesophageal echo and cardioversion for atrial fibrillation within the last few weeks. Therefore, we will hold off on performing this and see if we can obtain those records and he may require a Cardiology consultation. We will be monitoring his blood pressure and allowing for some permissive hypertension in the first 24 to 48 hours. With regard to the atrial fibrillation, currently his heart rate is stable. His EKG looks like he may have some fine atrial fibrillation as there are some baseline artifact. Since he is unable to swallow at this time, we may consider going ahead and placing him on full-dose Lovenox. 2. History of stage IV lung cancer. Currently, he is on maintenance Keytruda. This will need to be addressed later. We will need to see how much he recovers in the next few days and address this at a later time. The patient was placed on gastrointestinal prophylaxis with IV Protonix or Pepcid, and further recommendations to follow. Job ID: [id number]
[2019-06-24] MEDS: Heparin 5,000 UNITS/ML VIAL SC SCH (20:42)
[2019-06-24] MEDS: Atorvastatin Calcium 40 MG TAB PO SCH (22:25)
[2019-06-24] MEDS ORDERED: hydrALAZINE 20 MG/ML VIAL SLOW IVP PRN (23:26)
[2019-06-25 06:59] LABS: #Lymphocytes 1.2 thou/uL (1.20-3.40); #Monocytes 0.5 thou/uL (0.11-0.59); #Neutrophils 5.7 thou/uL (1.40-6.50); %Eosinophils 0.6 % (0.0-10.0); %Lymphocytes 16.3 % (21.0-51.0); %Monocytes 6.8 % (0.0-10.0); %Neutrophils 76.3 % (42.0-75.0); Hemoglobin 8.6 g/dL (14.0-18.0); Mean Corpuscular HGB CONC 33.9 g/dL (32.0-36.0); Mean Corpuscular Hemoglobin 31.9 pg (27.0-31.0); Mean Corpuscular Volume 94.3 fL (78.0-98.0); Platelet Count 245 thou/uL (130-400); RBC Distribution Width 15.1 % (11.5-14.5); Red Blood Cell (RBC) Count 2.69 mill/uL (4.70-6.10); White Blood Cell (WBC) Count 7.4 thou/uL (4.8-10.8)
[2019-06-25 07:21] LABS: Anion Gap 15 mmol/L (10-20); BUN (Urea Nitrogen) 16 mg/dL (8.4-25.7); Calc. Creatinine Clearance 50 mL/min (70-130); Calcium 9.3 mg/dL (7.8-10.44); Carbon Dioxide 23 mmol/L (23-31); Cardiac Risk 3.8 (Less than 4.5); Chloride 106 mmol/L (98-107); Cholesterol 166 mg/dl (< 200 Desired); Estimated GFR-MDRD 51; Glucose 98 mg/dL (80-115); HDL Cholesterol 44 mg/dL (>60 Neg Risk); LDL Cholesterol, Calculated 103 mg/dL; Sodium 140 mmol/L (136-145); Triglycerides 93 mg/dL (Less than 150)
[2019-06-25] MEDS: Heparin 5,000 UNITS/ML VIAL SC SCH ×3 (08:21→22:15)
[2019-06-25] MEDS: Aspirin 300 MG Suppository PR SCH (08:21)
[2019-06-25] MEDS: methylPREDNISolone Sod Succ 40 MG VIAL IVP SCH (08:22)
[2019-06-25] MEDS: Aspirin 325 mg Enteric Coated Tablet PO SCH (08:38)
--- NOTE | 2019-06-25 08:47 | CT ---
PRELIMINARY REPORT/[facility]/AFTER HOURS PROCEDURE Addendum created by Marilin Ward MD on 06/25/2019 4:20 AM Central Time ([place] & [place]) THIS REPORT CONTAINS FINDINGS THAT MAY BE CRITICAL TO PATIENT CARE. The findings were verbally communicated via telephone conference with CRISTIAN Perez by Dr. Ward on 06/25/2019 4:20 AM CDT. The results were acknowledged and understood. Initial Report created on 06/25/2019 3:57 AM Central Time ([place] & [place]) PROCEDURE INFORMATION: Exam: CT Head Without Contrast Exam date and time: 06/25/2019 3:38 AM Clinical history: 68 years old, male; Condition or disease; Patient HX: Follow up stroke TECHNIQUE: Imaging protocol: Computed tomography of the head without contrast. COMPARISON: CT Brain WO Con 06/24/2019 12:40 PM FINDINGS: Brain: Interval development of confluent decreased attenuation involving the right caudate head, globus pallidus, and putamen, consistent with acute infarct. No hemorrhage. Ventricles: No ventriculomegaly. Bones/joints: Unremarkable. No acute fracture. Sinuses: Visualized sinuses are unremarkable. No fluid levels. Mastoid air cells: Visualized mastoid air cells are well aerated. Soft tissues: Unremarkable. IMPRESSION: Acute right basal ganglion infarct is now visible on CT. No hemorrhage. Thank you for allowing us to participate in the care of your patient. Dictated and Authenticated by: Marilin Ward MD 06/25/2019 3:57 AM Central Time ([place] & [place]) FINAL REPORT CT HEAD WITHOUT CONTRAST PERFORMED ON AN EMERGENCY BASIS: 06/25/2019 0338 HOURS HISTORY: CVA COMPARISON: 06/24/2019 FINDINGS: I agree with the preliminary report by Dr. Ward from [facility]. Evolution of the right MCA infarct with decreased density of the right basal ganglia and medial aspec t of the right temporal lobe. Tiny linear hyperdense focus adjacent to the right medial lobe on image #10 likely represents thrombus within the middle cerebral artery. CODE QA Transcribed Date/Time: 06/25/2019 9:47 AM
--- NOTE | 2019-06-25 11:34 | CON ---
DATE OF CONSULTATION: 06/25/2019 CONSULTING PHYSICIAN: Hospitalist Service. IMPRESSION: 1. Right middle cerebral artery distribution infarct likely secondary to thrombosis. 2. History of atrial fibrillation, on anticoagulation. 3. Stage IV lung cancer. 4. Deep venous thrombosis. 5. Anemia. PLAN: 1. Continue heparin and aspirin until the patient is able to restart oral medications. 2. Probable need for inpatient rehab. 3. Questionable need for PEG tube placement. HISTORY OF PRESENT ILLNESS: Mr. Floyd is 68-year-old man, who has had a bad year of multiple medical problems. His reports that he has been on Eliquis following the demonstration of both DVTs as well as atrial fibrillation. He went to cardioversion earlier this year. He was noted to have an abnormal chest x-ray and was diagnosed with stage IV lung cancer. He has been on chemotherapy. She found him unconscious, lying on the bed. He was brought into the emergency room for evaluation. His CT angiogram showed a right M1 segment occlusion. Dr. Martinez attempted to perform endovascular treatment, but was unable to gain access. He was not a candidate for tPA due to his Eliquis. He has been moved to the ICU. He has failed to regain full alertness. He has not spoken except to say his name on one occasion. He has been in sinus rhythm with first-degree block. He has been started on heparin subcu. He was given aspirin rectally. PAST HISTORY: As listed above. ALLERGIES: CODEINE. SOCIAL HISTORY: No tobacco or alcohol use. FAMILY HISTORY: Noncontributory. REVIEW OF SYSTEMS: Not obtainable. PHYSICAL EXAMINATION: VITAL SIGNS: Blood pressure 111/48, pulse 71 in a sinus rhythm, saturations 100%, and respirations 18. HEENT: He has a right gaze preference. Pupils are equal. Conjunctivae are clear. NECK: Supple. EXTREMITIES: No cyanosis or edema. NEUROLOGIC: He is very lethargic and would not verbalize. He has a left facial droop. The left upper extremity has diminished tone. He has diminished withdrawal response and stimulation of the left foot. He moves the right side well. No abnormal movements were seen, otherwise. SUMMARY: This is a 68-year-old gentleman, who has had multiple ongoing problems, who has a thrombosis in the M1 segment on the right. I agree with your current management. His prior echocardiogram was unremarkable other than a 45% to 50% ejection fraction. He does not have any carotid disease that requires attention. Speech therapy is pending an evaluation. Job ID: [id number]
--- NOTE | 2019-06-25 12:26 | PRG ---
DATE OF SERVICE: 06/25/2019 SERVICE: Pulmonary Medicine. INTERVAL HISTORY: The patient is doing really well from respiratory standpoint. He is protecting his airway just fine. There is no significant change in his neurologic function overnight. He seems to be a little bit more alert. Otherwise, there has been no interval change to his condition. PHYSICAL EXAMINATION: VITAL SIGNS: Afebrile, pulse 68, blood pressure 111/48, respirations 17, and saturation 100%, currently on room air. GENERAL: The patient is awake and alert, in no apparent distress. LUNGS: Wonderful air entry with no prolonged expiratory phase or wheezing present. HEART: Normal rate, regular. ABDOMEN: Soft, nontender, nondistended. Bowel sounds are positive. MUSCULOSKELETAL: No cyanosis or clubbing. No pitting edema. : No [place]. LABORATORY DATA: WBC 7.4, hemoglobin 8.6, platelets 245,000. INR 1.7. Creatinine is downtrending to 1.63. Basic metabolic profile is otherwise unremarkable. IMAGING STUDIES: CT of the brain demonstrates interval development of confluent decreased attenuation involving the right caudate head, globus pallidus, and putamen consistent with acute infarct. No hemorrhage is otherwise appreciated. ASSESSMENT: 1. Acute cerebrovascular accident. 2. Atrial fibrillation, permanent. 3. Lung cancer, metastatic. DISCUSSION AND PLAN: At this point, the patient is stable for transition to the stroke unit. We will continue frequent neurologic checks. Work with Physical Therapy, Occupational Therapy, and Speech Pathology. In the next 24 hours, if it looks like his swallow will not improve, he will need to be considered for an either temporary feeding tube and/or PEG tube placement. His new performance scale likely prevents him from receiving additional chemotherapy. When he arrives on the floor, he will have no further requirements for inpatient Pulmonary or Critical Care opinion, and I will sign off. Please call with additional questions or concerns through time. Job ID: [id number] [facility]
[2019-06-25] MEDS: Sodium Chloride 0.45% 1,000 ML IV SCH (13:12)
[2019-06-25] MEDS: Atorvastatin Calcium 40 MG TAB PO SCH (22:15)
[2019-06-26] MEDS: Sodium Chloride 0.45% 1,000 ML IV SCH ×2 (03:07→17:07)
--- NOTE | 2019-06-26 07:07 | PRG ---
DATE OF SERVICE: 06/26/2019 Mr. Floyd is a 68-year-old gentleman, now hospital day two from a right MCA division occlusion. He had a followup CT examination performed yesterday which shows evolution what is to be a right MCA division stroke. He was transferred from the unit to the floor late yesterday. This morning, he is resting comfortably in his bed, and his is present. He is awake, but minimally verbal. He does nod his head to answers. He is densely hemiparetic on the left side. He will need to undergo additional swallow evaluation today. We will continue down a pathway of PT and OT and consideration of inpatient rehab. Job ID: [id number]
[2019-06-26] MEDS ORDERED: Atorvastatin Calcium 20 MG TAB PO SCH (09:00)
[2019-06-26] MEDS: Aspirin 325 mg Enteric Coated Tablet PO SCH (09:18)
[2019-06-26] MEDS: Heparin 5,000 UNITS/ML VIAL SC SCH ×3 (09:19→22:16)
[2019-06-26] MEDS: Aspirin 300 MG Suppository PR SCH (09:19)
[2019-06-26] MEDS: methylPREDNISolone Sod Succ 40 MG VIAL IVP SCH (09:24)
--- NOTE | 2019-06-26 12:20 | PDOC.HOSPP ---
- Subjective Encounter Date: 06/26/19 Encounter Time: 10:30 Subjective: pt up in bed not very verbal. upset about his current condition. - Objective Vital Signs & Weight: Vital Signs (12 hours) Temp Pulse Resp BP Pulse Ox 06/26/19 11:26 98.7 F 64 20 149/66 H 100 06/26/19 08:00 98.3 F 65 18 129/63 99 06/26/19 04:00 98.2 F 64 18 135/72 96 Weight Admit Weight 176 lb 9.44 oz Weight 176 lb 9.44 oz Most Recent Monitor Data Heart Rate from ECG 73 NIBP 120/49 NIBP BP-Mean 72 Respiration from ECG 18 SpO2 100 I&O: 06/25/19 06/26/19 06/27/19 06:59 06:59 06:59 Intake Total 855 801 840 Output Total 100 Balance 755 801 840 Result Diagrams: 06/25/19 06:49 06/26/19 02:50 Hospitalist ROS - Review of Systems Respiratory: denies: cough, dry, shortness of breath, hemoptysis, SOB with excertion, pleuritic pain, sputum, wheezing, other Cardiovascular: denies: chest pain, palpitations, orthopnea, paroxysmal noc. dyspnea, edema, light headedness, other Gastrointestinal: denies: nausea, vomiting, abdominal pain, diarrhea, constipation, melena, hematochezia, other - Medication Medications: Active Medications Generic Name Dose Route Start Last Admin Trade Name Freq PRN Reason Stop Dose Admin Aspirin 325 mg 06/25/19 09:00 06/26/19 09:18 Ecotrin PO Not Given DAILY [facility] Aspirin 300 mg 06/25/19 09:00 06/26/19 09:19 Aspirin VT 300 mg DAILY [facility] Administration Atorvastatin Calcium 40 mg 06/24/19 21:00 06/25/19 22:15 Lipitor PO Not Given HS [facility] Heparin Sodium (Porcine) 5,000 units 06/24/19 21:00 06/26/19 09:19 Heparin SC 5,000 units TID [facility]JA Administration Sodium Chloride 1,000 mls @ 75 mls/hr 06/25/19 12:00 06/26/19 03:07 1/2 Normal Saline IV 1,000 mls .[id number] [facility]JA Administration Methylprednisolone Sodium Succinate 20 mg 06/25/19 09:00 06/26/19 09:24 Solu-Medrol IVP 20 mg DAILY [facility] Administration - Exam Heart: negative: RRR, no murmur, no gallops, no rubs, normal peripheral pulses, irregular, diminshed peripheral pulses, murmur present, II/IV, III/IV Respiratory: negative: CTAB, no wheezes, no rales, no ronchi, normal chest expansion, no tachypnea, normal percussion, rales, rhonchi, tachypneic, wheezes Gastrointestinal: negative: soft, non-tender, non-distended, normal bowel sounds , no palpable masses, no hepatomegaly, no splenomegaly, no bruit, no guarding, no rigidity, tender to palpation, distended, diminished bowl sounds, voluntary guarding Extremities: negative: no cyanosis, no clubbing, no edema, 1+ LE edema, 2+ LE edema, clubbing Neurological - other findings: left side weakness Hosp A/P (1) Stroke Code(s): I63.9 - CEREBRAL INFARCTION, UNSPECIFIED Status: Acute (2) Chronic anticoagulation Code(s): Z79.01 - REPOSSESSOR (CURRENT) USE OF ANTICOAGULANTS Status: Chronic (3) Lung cancer Code(s): C34.90 - MALIGNANT NEOPLASM OF UNSP PART OF UNSP BRONCHUS OR LUNG Status: Chronic - Plan pt was on eliquis for hx of dvt and afib per family. He did undergo chemo for his stage iv cancer. Pt has a right MCA stroke. family wants cardiology consulted. upset and feels that he has been going to all his doctor appointments and still had a stroke while he was on AC. will get PT/OT to see him and pt will need rehab. She does not want to sent him to snf.
[2019-06-26] MEDS ORDERED: Acetaminophen 1,000 MG in Premix Bag 1 BAG IVPB PRN (12:56)
[2019-06-26] MEDS: Morphine 2 MG/ML SYRINGE SLOW IVP PRN (13:34)
[2019-06-26] MEDS: Atorvastatin Calcium 40 MG TAB PO SCH (22:15)
[2019-06-27] MEDS: Sodium Chloride 0.45% 1,000 ML IV SCH ×2 (05:23→18:34)
[2019-06-27] MEDS: Morphine 2 MG/ML SYRINGE SLOW IVP PRN (05:28)
[2019-06-27] MEDS: Heparin 5,000 UNITS/ML VIAL SC SCH ×3 (10:01→20:32)
[2019-06-27] MEDS: methylPREDNISolone Sod Succ 40 MG VIAL IVP SCH (10:01)
[2019-06-27] MEDS: Aspirin 300 MG Suppository PR SCH (10:01)
[2019-06-27] MEDS: Aspirin 325 mg Enteric Coated Tablet PO SCH (10:02)
[2019-06-27 10:50] LABS: Troponin I 0.247 ng/mL (< 0.028)
--- NOTE | 2019-06-27 11:14 | PDOC.HOSPP ---
- Subjective Encounter Date: 06/27/19 Encounter Time: 09:00 Subjective: pt up in bed at bedside complains of pain to his abdomen from Lovenox shots. - Objective Vital Signs & Weight: Vital Signs (12 hours) Temp Pulse Resp BP Pulse Ox 06/27/19 08:02 98.2 F 54 L 16 138/77 97 06/27/19 03:25 98 F 56 L 16 125/64 98 06/26/19 23:42 98.4 F 62 18 133/71 95 Weight Admit Weight 176 lb 9.44 oz Weight 176 lb 9.44 oz Most Recent Monitor Data Heart Rate from ECG 73 NIBP 120/49 NIBP BP-Mean 72 Respiration from ECG 18 SpO2 100 I&O: 06/26/19 06/27/19 06/28/19 06:59 06:59 06:59 Intake Total 801 1574 Balance 801 1574 Result Diagrams: 06/25/19 06:49 06/26/19 02:50 Hospitalist ROS - Review of Systems Respiratory: denies: cough, dry, shortness of breath, hemoptysis, SOB with excertion, pleuritic pain, sputum, wheezing, other Cardiovascular: denies: chest pain, palpitations, orthopnea, paroxysmal noc. dyspnea, edema, light headedness, other Gastrointestinal: reports: abdominal pain. denies: nausea, vomiting, diarrhea, constipation, melena, hematochezia, other - Medication Medications: Active Medications Generic Name Dose Route Start Last Admin Trade Name Freq PRN Reason Stop Dose Admin Aspirin 325 mg 06/25/19 09:00 06/27/19 10:02 Ecotrin PO Not Given DAILY [facility] Aspirin 300 mg 06/25/19 09:00 06/27/19 10:01 Aspirin ME 300 mg DAILY [facility] Administration Atorvastatin Calcium 40 mg 06/24/19 21:00 06/26/19 22:15 Lipitor PO Not Given HS [facility] Heparin Sodium (Porcine) 5,000 units 06/24/19 21:00 06/27/19 10:01 Heparin SC 5,000 units TID [facility] Administration Sodium Chloride 1,000 mls @ 75 mls/hr 06/25/19 12:00 06/27/19 05:23 1/2 Normal Saline IV 1,000 mls .[id number] [facility] Administration Methylprednisolone Sodium Succinate 20 mg 06/25/19 09:00 06/27/19 10:01 Solu-Medrol IVP 20 mg DAILY [facility] Administration Morphine Sulfate 2 mg 06/26/19 13:11 06/27/19 05:28 Morphine SLOW IVP 2 mg Q4H PRN Administration Pain - Exam Neck: negative: supple, symmetric, no JVD, no thyromegaly, no lymphadenopathy, no carotid bruit, JVD Heart: RRR, no murmur Respiratory: CTAB, no wheezes Gastrointestinal: soft, non-tender Hosp A/P (1) Stroke Code(s): I63.9 - CEREBRAL INFARCTION, UNSPECIFIED Status: Acute (2) Chronic anticoagulation Code(s): Z79.01 - IT 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 He did undergo chemo for his stage iv cancer. Pt has a right MCA stroke. family wants cardiology consulted. upset and feels that he has been going to all his doctor appointments and still had a stroke while he was on AC. will get PT/OT to see him and pt will need rehab. She does not want to sent him to snf. 06/27 spoke with speech who will revaluate pt. does not want snf wants pt to go to rehab. will [facility] re[facility] screen. pt on asa and statin
--- NOTE | 2019-06-27 17:19 | RAD ---
MODIFIED BARIUM SWALLOW: Patient was given barium under fluoroscopic observation to assess swallowing mechanism. Indication: Recent CVA. FINDINGS: There is swallowing dysfunction. Oral phase dysfunction with difficulty initiating swallowing. There is premature spillage and pooling. No laryngeal penetration or aspiration was detected. See speech pathology recommendation. POS: LEXI
--- NOTE | 2019-06-27 17:44 | CON ---
DATE OF CONSULTATION: 06/27/2019 REASON FOR CONSULTATION: Stroke. HISTORY OF PRESENT ILLNESS: Mr. Floyd is a very pleasant, 68-year-old, gentleman, who comes to the hospital for stroke-like symptoms. He was diagnosed with a right middle cerebral artery distribution stroke making him not be able to use the left side of his heart. He has been on full-dose Eliquis at 5 mg b.i.d., for history of atrial fibrillation which was paroxysmal and thought to be the cause of his thrombosis on his leg, which was his original presentation. He had nonischemic cardiomyopathy and was diagnosed with stage IV lung cancer recently. He has been undergoing chemotherapy. He has been taking all his medications. His Eliquis has been provided by my office mostly with samples, and we have always been able to give him samples before he runs out. comes to pick them up at least a week, at most 4 days before he runs out. He has not stopped this medication at all. Currently, he is nonverbal, but follows some commands. PAST MEDICAL HISTORY: 1. Stage IV lung cancer. 2. Paroxysmal atrial fibrillation. 3. 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 4. Chronic anticoagulation, on full-dose Eliquis at 5 mg b.i.d. 5. Anemia. 6. Peripheral vascular disease. 7. Mild coronary artery disease. 8. Nonischemic cardiomyopathy, most recent EF is normalized at 50%. PAST SURGICAL HISTORY: 1. Left leg bypass surgery for PVD. 2. MediPort placement. 3. EGD and colonoscopy for severe anemia, which were unremarkable. OUTPATIENT MEDICATIONS: Include: 1. Prednisone. 2. Albuterol. 3. Amiodarone 200 mg a day. 4. Atorvastatin. 5. Eliquis 5 mg b.i.d. 6. Terazosin 5 mg b.i.d. 7. Carvedilol 3.125 mg b.i.d. 8. Aspirin 81 a day. 9. Lasix 40 mg a day. 10. Potassium chloride 10 mEq a day. ALLERGIES: CODEINE CAUSES ITCHING. SOCIAL HISTORY: Former smoker and former alcohol use, none for the last 2 years. No drug use. FAMILY HISTORY: Father with TB. No early coronary artery disease. REVIEW OF SYSTEMS: Unobtainable as the patient is nonverbal. PHYSICAL EXAMINATION: VITAL SIGNS: Temperature 98.6, pulse 57, respiratory rate 16, saturating 100% on room air, blood pressure 142/73. GENERAL: Awake and alert, nonverbal, in no distress. HEENT: Normocephalic and atraumatic. NECK: Supple. LUNGS: Clear. CARDIOVASCULAR: S1 and S2. No S3 or S4. Bradycardic in the 40s to 50s. ABDOMEN: Soft. Positive bowel sounds. EXTREMITIES: No edema. SKIN: Warm and dry. LABORATORY DATA: Laboratory work was reviewed. White count of 7.2, hemoglobin of 8.6, hematocrit of 25, platelet count of 247. Coags were reviewed. Chemistries were reviewed. Troponin is 0.24. CT of the brain was reviewed. ASSESSMENT: 1. 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 2. History of paroxysmal atrial fibrillation. 3. Chronic anticoagulation with Eliquis 5 mg b.i.d. 4. History of deep venous thrombosis. 5. History of embolic phenomenon, thought to be related to atrial fibrillation. In the past, he embolized to his leg. 6. Severe peripheral vascular disease. PLAN: 1. We would continue full-dose Eliquis once safe from the perspective of the level of injury that he had in his brain. There is a lot of inflammation. Most likely, he will have a hemorrhagic conversion if we were to do full anticoagulation at this time. 2. If he has a significant amount of recuperation and his cancer is somewhat controlled, he may be a candidate for Watchman or Lariat device. Otherwise, we will continue anticoagulation once safe from the neurological perspective. Thank you for letting us to participate in the care of your patient. We will follow. Job ID: [id number]
[2019-06-27] MEDS: Atorvastatin Calcium 40 MG TAB PO SCH (20:32)
[2019-06-28] MEDS: Aspirin 325 mg Enteric Coated Tablet PO SCH (08:21)
[2019-06-28] MEDS: Heparin 5,000 UNITS/ML VIAL SC SCH ×3 (08:22→20:55)
[2019-06-28] MEDS: Sodium Chloride 0.45% 1,000 ML IV SCH ×2 (08:22→20:56)
[2019-06-28] MEDS: methylPREDNISolone Sod Succ 40 MG VIAL IVP SCH (08:22)
[2019-06-28] MEDS: Aspirin 300 MG Suppository PR SCH (08:22)
[2019-06-28 11:16] LABS: #Monocytes 0.6 thou/uL (0.11-0.59); #Neutrophils 7.3 thou/uL (1.40-6.50); %Basophils 0.1 % (0.0-1.0); %Eosinophils 0.1 % (0.0-10.0); %Lymphocytes 11.4 % (21.0-51.0); %Neutrophils 81.4 % (42.0-75.0); Hemoglobin 9.1 g/dL (14.0-18.0); Mean Corpuscular HGB CONC 34.5 g/dL (32.0-36.0); Mean Corpuscular Hemoglobin 31.7 pg (27.0-31.0); Mean Platelet Volume 7.3 fL (7.4-10.4); Platelet Count 245 thou/uL (130-400); RBC Distribution Width 14.6 % (11.5-14.5); Red Blood Cell (RBC) Count 2.88 mill/uL (4.70-6.10)
[2019-06-28 11:42] LABS: ALT (SGPT) 20 U/L (8-55); AST (SGOT) 21 U/L (5-34); Albumin 3.8 g/dL (3.4-4.8); Alkaline Phosphatase 200 U/L (40-110); Anion Gap 14 mmol/L (10-20); BUN (Urea Nitrogen) 28 mg/dL (8.4-25.7); Bilirubin, Total 1.2 mg/dL (0.2-1.2); Calc. Creatinine Clearance 59 mL/min (70-130); Calcium 9.4 mg/dL (7.8-10.44); Carbon Dioxide 22 mmol/L (23-31); Chloride 104 mmol/L (98-107); Estimated GFR-MDRD 62; Globulin 3.3 g/dL (2.4-3.5); Glucose 95 mg/dL (80-115); Potassium 3.7 mmol/L (3.5-5.1); Protein, Total 7.1 g/dL (5.8-8.1); Sodium 136 mmol/L (136-145)
--- NOTE | 2019-06-28 13:15 | PQF ---
DATE: 06-28-19 ATTN: DR. HANS GREENFIELD Please exercise your independent, professional judgment in responding to the clarification form. Clinical indicators are provided on the bottom of this form for your review Please check appropriate box(s): [ ] Encephalopathy: Type: [ ] Acute [ ] Subacute [ ] Chronic Etiology: [ ] Metabolic [ ] Toxic [ ] Other (please specify) [ ] Transient Alteration of Awareness [x ] Other diagnosis ____pt had a stroke [ ] Unable to determine In addition, please specify: Present on Admission (POA): [ ] Yes [ ] No [ x ] Unable to determine For continuity of documentation, please document condition throughout progress notes and discharge summary. Thank You. CLINICAL INDICATORS - SIGNS / SYMPTOMS / LABS / RESULTS AND LOCATION IN EMR: ER 06-24-19: THE WAS HIM PRIOR TO HIM GOING BACK TO HIS BEDROOM AT 11A AND THEN FOUND HIM CONFUSED AND WEAK SHORTLY THEREAFTER ON HIS BED WHEN HE WAS SUPPOSEDLY CHANGING. CONSULT NOTE DR. PITTMAN 06-24-19: CURRENTLY ENCEPHALOPATHIC AND UNABLE TO GIVE ANY HISTORY. UNOBTAINABLE DUE TO THE PATIENTS CURRENT MENTAL STATUS. RISK FACTORS / RESULTS AND LOCATION IN EMR: DR. PITTMAN NOTE 06-27-19: CVA, A FIB PERMANENT, LUNG CANCER METASTATIC TREATMENTS / RESULTS AND LOCATION IN EMR: NEURO CONSULT 06-25-19 (This form is maintained as a part of the permanent medical record) 2014 [employer]. All Rights Reserved [email or web address] Office: [phone] [email or web address] HOSPITALCecilia
--- NOTE | 2019-06-28 17:48 | PDOC.CPN ---
- Subjective Date: 06/28/19 Time: 17:46 Interval history: No new issues. - Review of Systems ROS unobtainable: due to mental status - Objective Allergies/Adverse Reactions: Allergies Allergy/AdvReac Type Severity Reaction Status Date / Time codeine Allergy Hives Verified 06/04/19 00:43 Visit Medications: Current Medications Aspirin (Ecotrin) 325 mg PO DAILY [facility] Last Admin: 06/28/19 08:21 Dose: 325 mg Aspirin (Aspirin) 300 mg NV DAILY [facility] Last Admin: 06/28/19 08:22 Dose: Not Given Atorvastatin Calcium (Lipitor) 40 mg PO HS [facility] Last Admin: 06/27/19 20:32 Dose: 40 mg Heparin Sodium (Porcine) (Heparin) 5,000 units SC TID [facility] Last Admin: 06/28/19 16:33 Dose: 5,000 units Hydralazine HCl (Apresoline) 10 mg SLOW IVP Q4H PRN PRN Reason: SBP Greater Than 170 Sodium Chloride (1/2 Normal Saline) 1,000 mls @ 75 mls/hr IV .[id number] [facility] Last Admin: 06/28/19 08:22 Dose: 1,000 mls Methylprednisolone Sodium Succinate (Solu-Medrol) 20 mg IVP DAILY [facility] Last Admin: 06/28/19 08:22 Dose: 20 mg Morphine Sulfate (Morphine) 2 mg SLOW IVP Q4H PRN PRN Reason: Pain Last Admin: 06/27/19 05:28 Dose: 2 mg Sodium Chloride (Flush - Normal Saline) 10 ml IVF PRN PRN PRN Reason: Saline Flush Vital Signs & Weight: Vital Signs Temp Pulse Pulse Pulse Resp BP BP 06/28/19 15:56 98.5 F 61 16 06/28/19 12:00 98.5 F 55 L 15 06/28/19 09:24 51 L 50 L 153/81 H 147/79 H 06/28/19 08:30 06/28/19 08:04 98.5 F 52 L 22 H BP Pulse Ox 06/28/19 15:56 137/73 94 L 06/28/19 12:00 135/75 98 06/28/19 09:24 06/28/19 08:30 97 06/28/19 08:04 155/74 H 97 Admit Weight 176 lb 9.44 oz Weight 176 lb 9.44 oz - Physical Exam General: no apparent distress HEENT: normocephaly Neck: supple neck, midline trachea Cardiac: no murmur Lungs: clear to auscultation Neuro: weakness Abdomen: active bowel sounds, soft, non-tender Extremities: no clubbing, no edema Skin: clear Musculoskeletal: no pain - Labs Result Diagrams: 06/28/19 10:52 06/28/19 10:52 Troponin/CKMB CK-MB (CK-2) 1.9 ng/mL (0-6.6) 06/24/19 12:51 Troponin I 0.247 ng/mL (< 0.028) H 06/27/19 10:13 - Telemetry Sinus rhythms and dysrhythmias: sinus rhythm Supraventricular conduction: atrial fibrillation - Assessment/Plan Assessment/Plan: 1. Acute CVA 2. Paroxysmal Afib 3. Hx of DVt 4. PVD. 5. Lung Ca PLAN: - Continue full dose Eliquis once safe from neurological perspective. - May need Watchman or lariat as outpatient.
[2019-06-28] MEDS: Atorvastatin Calcium 40 MG TAB PO SCH (20:55)
--- NOTE | 2019-06-29 08:43 | PDOC.HOSPP ---
- Subjective Encounter Date: 06/28/19 Encounter Time: 10:00 Subjective: pt up in bed no complains - Objective Vital Signs & Weight: Vital Signs (12 hours) Temp Pulse Resp BP Pulse Ox 06/29/19 05:01 98.2 F 50 L 14 146/80 H 92 L 06/28/19 23:47 98.5 F 51 L 16 120/64 95 Weight Admit Weight 176 lb 9.44 oz Weight 182 lb 2 oz Most Recent Monitor Data Heart Rate from ECG 73 NIBP 120/49 NIBP BP-Mean 72 Respiration from ECG 18 SpO2 100 I&O: 06/28/19 06/29/19 06/30/19 06:59 06:59 06:59 Intake Total 1637 120 350 Output Total 75 Balance 1637 45 350 Result Diagrams: 06/28/19 10:52 06/28/19 10:52 Hospitalist ROS - Review of Systems Respiratory: denies: cough, dry, shortness of breath, hemoptysis, SOB with excertion, pleuritic pain, sputum, wheezing, other Cardiovascular: denies: chest pain, palpitations, orthopnea, paroxysmal noc. dyspnea, edema, light headedness, other Gastrointestinal: denies: nausea, vomiting, abdominal pain, diarrhea, constipation, melena, hematochezia, other - Medication Medications: Active Medications Generic Name Dose Route Start Last Admin Trade Name Salomonq PRN Reason Stop Dose Admin Aspirin 325 mg 06/25/19 09:00 06/28/19 08:21 Ecotrin PO 325 mg DAILY [facility] Administration Aspirin 300 mg 06/25/19 09:00 06/28/19 08:22 Aspirin GA Not Given DAILY [facility] Atorvastatin Calcium 40 mg 06/24/19 21:00 06/28/19 20:55 Lipitor PO 40 mg HS PUJA Administration Sodium Chloride 1,000 mls @ 75 mls/hr 06/25/19 12:00 06/28/19 20:56 1/2 Normal Saline IV 1,000 mls .[id number] PUJA Administration Morphine Sulfate 2 mg 06/26/19 13:11 06/27/19 05:28 Morphine SLOW IVP 2 mg Q4H PRN Administration Pain - Exam ENT: normocephalic atraumatic Neck: supple, symmetric Heart: RRR, no murmur Respiratory: CTAB, no wheezes Gastrointestinal: soft, non-tender, non-distended Hosp A/P (1) Stroke Code(s): I63.9 - CEREBRAL INFARCTION, UNSPECIFIED Status: Acute (2) Chronic anticoagulation Code(s): Z79.01 - CUT OFF SAWYER (CURRENT) USE OF ANTICOAGULANTS Status: Chronic (3) Lung cancer Code(s): C34.90 - MALIGNANT NEOPLASM OF UNSP PART OF UNSP BRONCHUS OR LUNG Status: Chronic - Plan pt was on eliquis for hx of dvt and afib per family. He did undergo chemo for his stage iv cancer. Pt has a right MCA stroke. family wants cardiology consulted. upset and feels that he has been going to all his doctor appointments and still had a stroke while he was on AC. will get PT/OT to see him and pt will need rehab. She does not want to sent him to snf. 06/27 spoke with speech who will revaluate pt. does not want snf wants pt to go to rehab. [facility]. pt on asa and statin 06/28 pt up in bed no complains, he is eating with aspiration precaution. will need rehab.
--- NOTE | 2019-06-29 08:44 | PDOC.HOSPP ---
- Subjective Encounter Date: 06/29/19 Encounter Time: 11:30 Subjective: pt up in bed - Objective Vital Signs & Weight: Vital Signs (12 hours) Temp Pulse Resp BP Pulse Ox 06/29/19 05:01 98.2 F 50 L 14 146/80 H 92 L 06/28/19 23:47 98.5 F 51 L 16 120/64 95 Weight Admit Weight 176 lb 9.44 oz Weight 182 lb 2 oz Most Recent Monitor Data Heart Rate from ECG 73 NIBP 120/49 NIBP BP-Mean 72 Respiration from ECG 18 SpO2 100 I&O: 06/28/19 06/29/19 06/30/19 06:59 06:59 06:59 Intake Total 1637 120 350 Output Total 75 Balance 1637 45 350 Result Diagrams: 06/28/19 10:52 06/28/19 10:52 Hospitalist ROS - Review of Systems Respiratory: denies: cough, dry, shortness of breath, hemoptysis, SOB with excertion, pleuritic pain, sputum, wheezing, other Cardiovascular: denies: chest pain, palpitations, orthopnea, paroxysmal noc. dyspnea, edema, light headedness, other Gastrointestinal: denies: nausea, vomiting, abdominal pain, diarrhea, constipation, melena, hematochezia, other - Medication Medications: Active Medications Generic Name Dose Route Start Last Admin Trade Name Freq PRN Reason Stop Dose Admin Aspirin 325 mg 06/25/19 09:00 06/28/19 08:21 Ecotrin PO 325 mg DAILY [facility] Administration Aspirin 300 mg 06/25/19 09:00 06/28/19 08:22 Aspirin IA Not Given DAILY [facility] Atorvastatin Calcium 40 mg 06/24/19 21:00 06/28/19 20:55 Lipitor PO 40 mg HS [facility] Administration Sodium Chloride 1,000 mls @ 75 mls/hr 06/25/19 12:00 06/28/19 20:56 1/2 Normal Saline IV 1,000 mls .[id number] PU[facility] Administration Morphine Sulfate 2 mg 06/26/19 13:11 06/27/19 05:28 Morphine SLOW IVP 2 mg Q4H PRN Administration Pain - Exam Neck: supple, symmetric Heart: RRR, no murmur Respiratory: CTAB, no wheezes Gastrointestinal: soft, non-tender, non-distended Hosp A/P (1) Stroke Code(s): I63.9 - CEREBRAL INFARCTION, UNSPECIFIED Status: Acute (2) Chronic anticoagulation Code(s): Z79.01 - CUSTODIAL (CURRENT) USE OF ANTICOAGULANTS Status: Chronic (3) Lung cancer Code(s): C34.90 - MALIGNANT NEOPLASM OF UNSP PART OF UNSP BRONCHUS OR LUNG Status: Chronic - Plan pt was on eliquis for hx of dvt and afib per family. He did undergo chemo for his stage iv cancer. Pt has a right MCA stroke. family wants cardiology consulted. upset and feels that he has been going to all his doctor appointments and still had a stroke while he was on AC. will get PT/OT to see him and pt will need rehab. She does not want to sent him to snf. 06/27 spoke with speech who will revaluate pt. does not want snf wants pt to go to rehab. [facility]. pt on asa and statin 06/28 pt up in bed no complains, he is eating with aspiration precaution. will need rehab. 06/29 will change heparin to lovonox.
[2019-06-29] MEDS ORDERED: Sodium Chloride 0.9% 1,000 ML IV SCH (08:45)
[2019-06-29] MEDS ORDERED: Terazosin HCl 5 MG CAP PO SCH (09:00)
[2019-06-29] MEDS ORDERED: Enoxaparin Sodium 40 MG/0.4 ML SYRINGE SC SCH (09:00)
[2019-06-29] MEDS: Aspirin 300 MG Suppository PR SCH (11:17)
[2019-06-29] MEDS: Aspirin 325 mg Enteric Coated Tablet PO SCH (11:17)
[2019-06-29] MEDS ORDERED: predniSONE 5 MG TAB PO SCH (11:45)
[2019-06-29 15:40] VITALS: BP 136/74; TEMP 98.3
--- NOTE | 2019-06-29 20:33 | PDOC.CPN ---
- Subjective Date: 06/29/19 Time: 18:00 - Review of Systems ROS unobtainable: due to mental status - Objective Allergies/Adverse Reactions: Allergies Allergy/AdvReac Type Severity Reaction Status Date / Time codeine Allergy Hives Verified 06/04/19 00:43 Vital Signs & Weight: Vital Signs Temp Pulse Pulse Pulse Resp BP BP 06/29/19 15:39 98.3 F 55 L 16 06/29/19 11:44 98.2 F 58 L 16 06/29/19 11:30 06/29/19 11:10 98.7 F 54 L 06/29/19 09:37 59 L 53 L 117/76 121/61 BP Pulse Ox 06/29/19 15:39 136/74 94 L 06/29/19 11:44 152/79 H 96 06/29/19 11:30 99 06/29/19 11:10 152/79 H 99 06/29/19 09:37 Admit Weight 176 lb 9.44 oz Weight 182 lb 2 oz - Physical Exam General: no apparent distress HEENT: normocephaly Neck: supple neck Cardiac: no murmur, irregularly regular Lungs: clear to auscultation Neuro: weakness Abdomen: active bowel sounds Extremities: no edema Skin: clear Musculoskeletal: no pain - Labs Result Diagrams: 06/28/19 10:52 06/28/19 10:52 Troponin/CKMB CK-MB (CK-2) 1.9 ng/mL (0-6.6) 06/24/19 12:51 Troponin I 0.247 ng/mL (< 0.028) H 06/27/19 10:13 - Telemetry Supraventricular conduction: atrial fibrillation - Assessment/Plan Assessment/Plan: 1. Acute CVA 2. Paroxysmal Afib 3. Hx of DVt 4. PVD. 5. Lung Ca PLAN: - Would re start Xarelto for full anticoagulation at 20 mg daily in one week. - He wishes to stop chemotherapy for his lung Ca. - He is ready to go to rehab today. - Follow up in the office in 4 wks.
--- NOTE | 2019-06-29 22:13 | DIS ---
DATE OF ADMISSION: 06/24/2019 DATE OF DISCHARGE: 06/29/2019 DISCHARGE DIAGNOSES: 1. Acute MCA stroke. 2. Hypertension. 3. Atrial fibrillation. 4. Lung cancer, stage IV. 5. BPH. HOSPITAL COURSE: The patient is a 68-year-old male, who initially presented to the hospital with syncopal episode. At this time, he underwent a CT workup which indicated stroke. The patient's CT image and CT angiogram indicate an occlusion of the mid portion of the right cerebral artery along the M1 segment and was within the time frame. Neurosurgery was involved in this case. The patient at this time was not given tPA due to his underlying lung cancer and also the fact that he was on Eliquis. A mechanical thrombectomy was approached. However, the procedure was unsuccessful due to severe peripheral vascular disease and history of bifem bypass and access could not be established and he was again as I mentioned, not a candidate for tPA. The patient was then admitted to the ICU. He does have significant left-sided paralysis. The patient was also seen by Cardiology and also Neurosurgery and Neurology. We have restarted his Eliquis back since he had no hemorrhagic conversions. He did not have significant blockages on his carotids either on the CTA. DISCHARGE MEDICATIONS: 1. Eliquis 5 mg b.i.d. 2. Aspirin 81 mg daily. 3. Atorvastatin 40 mg daily. 4. Coreg 3.125 b.i.d. 5. Folic acid one p.o. daily. 6. Terazosin 5 mg b.i.d. 7. Amiodarone 200 mg b.i.d. 8. Losartan daily. 9. Colchicine 0.6 mg daily. ASSESSMENT AND PLAN: The patient was started on steroids and I did confirm this with Pharmacy. The patient was not taking steroids. This was just put in his notes, so I have discontinued the steroids. We will continue to monitor him. His steroids were most likely started due to either chemotherapy versus his gout. The patient does have stage IV lung cancer and he was supposed to be on maintenance therapy most likely Keytruda, however, states right now she will notify his oncologist about his current status. The patient did have a barium swallow done which indicated some aspiration, however, family does not want a PEG tube. We have advised them that to feed him with caution. Again, he will be discharged today. He is doing quite well. PHYSICAL EXAMINATION: VITAL SIGNS: His temperature 98.3, heart rate 55, 94% on room air, 136/74. GENERAL: He is awake, alert, and oriented x3. Does not appear in distress. CV: S1, S2 present. No murmurs, rubs, or gallops. He continues to have left-sided weakness. However, he is able to speak a few more words. We will continue to monitor him. Job ID: [id number]
[2019-06-30] MEDS ORDERED: predniSONE 5 MG TAB PO SCH (08:00)
--- NOTE | 2019-07-02 12:45 | EKG ---
Test Reason : Blood Pressure : / mmHG Vent. Rate : 068 BPM Atrial Rate : 068 BPM P-R Int : 296 ms QRS Dur : 102 ms QT Int : 484 ms P-R-T Axes : 038 -63 -54 degrees QTc Int : 514 ms Sinus rhythm with 1st degree A-V block Low voltage QRS Left anterior fascicular block Inferior infarct , age undetermined Cannot rule out Anterior infarct , age undetermined Abnormal ECG Confirmed by KAREN SMITH D.O. ([id number]), market editor CHU CARNEY ([id number]) on 07/02/2019 12:44:33 PM Referred By: Confirmed By:KAREN SMITH D.O.
== END 2019-06-29 19:19 | DRG 24 ==
LOC: ERS 12:15 → CCL 13:07 → CCU 13:19 → ERS 13:52 → 2SE 06-25 19:09
PROVIDERS: ADMIT Neurological Surgery; ATTEND Internal Medicine
PROC: 03CG3ZZ Extirpation of Matter from Intracranial Artery, Percutaneous Approach (ICD-10-PCS; principal; 2019-06-24)
PROC: B31R1ZZ Fluoroscopy of Intracranial Arteries using Low Osmolar Contrast (ICD-10-PCS; 2019-06-24)
DX: I63.311 Cerebral infarction due to thrombosis of right middle cerebral artery (principal); C34.91 Malignant neoplasm of unspecified part of right bronchus or lung; G81.94 Hemiplegia, unspecified affecting left nondominant side; I48.21 Permanent atrial fibrillation; I42.8 Other cardiomyopathies; I25.10 Atherosclerotic heart disease of native coronary artery without angina pectoris; I11.0 Hypertensive heart disease with heart failure; I50.9 Heart failure, unspecified; E78.5 Hyperlipidemia, unspecified; J44.9 Chronic obstructive pulmonary disease, unspecified; D63.0 Anemia in neoplastic disease; I48.0 Paroxysmal atrial fibrillation; N40.0 Benign prostatic hyperplasia without lower urinary tract symptoms; I73.9 Peripheral vascular disease, unspecified; Z79.01 Long term (current) use of anticoagulants; Z95.1 Presence of aortocoronary bypass graft; Z87.891 Personal history of nicotine dependence; Z88.2 Allergy status to sulfonamides; Z86.718 Personal history of other venous thrombosis and embolism
CPT/HCPCS: 0042T; 36415; 36416; 70450; 70496; 70498; 71045; 74230; 80048; 80053; 80061; 82550; 82553; 83605; 83735; 84132; 84484; 85025; 85610; 85730; 86850; 86900; 86901; 93005; C1769; J1644; J1650; J2001; J2270; J2704; J2920; J3010; J3490; J7512

== ENCOUNTER 2019-07-07 14:19 | Inpatient (IN) | payer MEDICARE, OTHER ==
[2019-07-07] MEDS ORDERED: Ondansetron PF 4 MG/2 ML Vial IVP PRN (18:01)
[2019-07-07] MEDS ORDERED: Acetaminophen 650 MG Suppository PR PRN (18:01)
[2019-07-07] MEDS ORDERED: Bisacodyl 10 MG SUPP PR PRN (18:01)
[2019-07-07] MEDS ORDERED: Acetaminophen 325 MG TAB PO PRN (18:01)
[2019-07-07 19:40] LABS: #Lymphocytes 1.8 thou/uL (1.20-3.40); #Monocytes 0.7 thou/uL (0.11-0.59); #Neutrophils 7.5 thou/uL (1.40-6.50); %Basophils 0.5 % (0.0-1.0); %Eosinophils 0.1 % (0.0-10.0); %Lymphocytes 17.5 % (21.0-51.0); %Monocytes 7.4 % (0.0-10.0); %Neutrophils 74.6 % (42.0-75.0); Anisocytosis SLIGHT = 6-15 cells (100X) (0-5/hpf); Hemoglobin 6.8 g/dL (14.0-18.0); MDiff Complete? YES; Mean Corpuscular HGB CONC 33.7 g/dL (32.0-36.0); Mean Corpuscular Hemoglobin 31.2 pg (27.0-31.0); Mean Corpuscular Volume 92.7 fL (78.0-98.0); Mean Platelet Volume 8.5 fL (7.4-10.4); Platelet Count 106 thou/uL (130-400); Platelet Morphology Comment Appears Decreased; RBC Distribution Width 14.7 % (11.5-14.5); Red Blood Cell (RBC) Count 2.18 mill/uL (4.70-6.10); White Blood Cell (WBC) Count 10.1 thou/uL (4.8-10.8)
[2019-07-07 19:47] LABS: ALT (SGPT) 18 U/L (8-55); AST (SGOT) 25 U/L (5-34); Alkaline Phosphatase 231 U/L (40-110); Anion Gap 16 mmol/L (10-20); BUN (Urea Nitrogen) 42 mg/dL (8.4-25.7); Bilirubin, Total 1.7 mg/dL (0.2-1.2); Calc. Creatinine Clearance 0 mL/min (70-130); Calcium 9.4 mg/dL (7.8-10.44); Carbon Dioxide 21 mmol/L (23-31); Chloride 109 mmol/L (98-107); Estimated GFR-MDRD 57; Globulin 3.1 g/dL (2.4-3.5); Glucose 104 mg/dL (80-115); Potassium 3.8 mmol/L (3.5-5.1); Protein, Total 7.1 g/dL (5.8-8.1); Sodium 142 mmol/L (136-145)
[2019-07-07] MEDS ORDERED: Famotidine/PF 20 mg/2ml Vial SLOW IVP SCH (21:00)
--- NOTE | 2019-07-07 21:07 | HP ---
REASON FOR ADMISSION: Failure to thrive, poor oral intake, recent CVA, for likely PEG tube placement. HISTORY OF PRESENTING ILLNESS: The patient was recuperating in rehab post recent CVA. He was discharged on the to rehab. For the last 5 days or so, the patient has not been taking in sufficient amount of food. He has also become very weak. He was not participating in rehab, physical therapy, or occupational therapy. In view of progressive deconditioning and not able to eat or drink, he was transferred back for possible PEG tube placement. He currently agrees for the same if needed. 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 CURRENT MEDICATIONS: The patient was discharged on 1. Amiodarone 200 twice daily. 2. Coreg 3.125 mg twice daily. 3. Clonidine p.r.n. 4. Colchicine 0.6 mg p.o. daily. 5. Folic acid 1 mg p.o. daily. 6. Losartan 25 mg p.o. daily. 7. MiraLAX 17 g daily. 8. Terazosin 5 mg twice daily. 9. Eliquis 5 mg twice daily. 10. Aspirin 81 mg daily. 11. Lipitor 40 mg p.o. at bedtime. ALLERGIES: ALLERGIC TO CODEINE. PERSONAL HISTORY: Does not abuse alcohol or drugs. No current tobacco usage. FAMILY HISTORY: No family history of cancers. Father had history of heart disease and COPD. Mother had hypertension and diabetes. CODE STATUS: Full. 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 REVIEW OF SYSTEMS: CONSTITUTIONAL: Negative for weight loss or gain, ability to conduct usual activities. SKIN: Negative for rash, itching. EYES: Negative for double vision, pain. ENT/MOUTH: Negative for nose bleeding, neck stiffness, pain, tenderness. CARDIOVASCULAR: Negative for palpitations, dyspnea on exertion, orthopnea. RESPIRATORY: Negative for shortness of breath, wheezing, cough, hemoptysis, fever or night sweats. GASTROINTESTINAL: Negative for poor appetite, abdominal pain, heartburn, nausea , vomiting, constipation, or diarrhea. GENITOURINARY: Negative for urgency, frequency, dysuria, nocturia. MUSCULOSKELETAL: Negative for pain, swelling. NEUROLOGIC/PSYCHIATRIC: Negative for anxiety, depression. ALLERGY/IMMUNOLOGIC: Negative for skin rash, bleeding tendency. PHYSICAL EXAMINATION: GENERAL: The patient is a 68-year-old male, who is currently not in any acute distress. VITAL SIGNS: Blood pressure 124/60, pulse 86 per minute, respiratory rate 18 per minute, temperature 98.8 degrees Fahrenheit, saturating 95% on room air. NECK: Supple. No elevated JVD. HEENT: Eyes; extraocular muscles intact, pupils are reacting to light. Oral cavity, mucous membranes are dry. No exudates or congestion. CARDIOVASCULAR: S1, S2 heard. RESPIRATORY: Air entry 1+ bilateral. Scattered rhonchi plus no rales or wheezes. ABDOMEN: Soft. Bowel sounds heard. No tenderness, rigidity, or guarding. EXTREMITIES: No peripheral edema or calf tenderness. VASCULAR: Peripheral pulses 1+ bilateral. No ischemic ulcerations or gangrene. CENTRAL NERVOUS SYSTEM: The patient has dense left hemiplegia. There is flattening of nasolabial fold on the left side of his face, likely has dysphagia. He communicates well verbally at present. He is able to freely move his right upper and lower extremities. The patient is right-handed. PSYCHIATRIC: No obvious hallucinations or delusions. LABORATORY DATA: Serum bicarb 21, BUN 42, creatinine 1.4, calcium is 9.4. Liver enzymes; AST, ALT within normal limits, alkaline phosphatase is 231. Albumin is 4, H and H 6.8 and 20, platelet count 106, MCV is 92 with 74% neutrophils. CLINICAL IMPRESSION AND PLAN: The patient will be admitted to medical floor under observation for progressive deconditioning with dehydration, acute kidney injury , chronic anemia with acute blood loss. He has had recent EGD, colonoscopies done which have not revealed a source of his bleeding. He also has history of lung cancer, was on chemotherapy, on carboplatin, Alimta, and Keytruda before. We will keep him n.p.o. for now. He will be on D5 water at 100 mL per hour. Gastroenterology consultation will be requested. PT, OT and speech evaluations will be requested as well. We will continue his amiodarone, aspirin, Lipitor, Coreg, folic acid, and terazosin as before. We will continue to closely monitor him on medical floor. The patient's overall prognosis is guarded. He has multiple medical issues in addition to recent cerebrovascular accident, left hemiplegia, and dysphagia. Job ID: [id number] [facility]
[2019-07-07] MEDS: Terazosin HCl 5 MG CAP PO SCH (21:09)
[2019-07-07] MEDS: Amiodarone 200 MG TAB PO SCH (21:09)
[2019-07-07] MEDS: Carvedilol 3.125 MG TAB PO SCH (21:09)
[2019-07-07] MEDS: Atorvastatin Calcium 40 MG TAB PO SCH (21:09)
[2019-07-08] MEDS: Dextrose 5% in Water 1,000 ML IV SCH ×2 (04:16→21:56)
[2019-07-08 05:25] LABS: #Basophils 0.1 thou/uL (0.0-0.2); #Lymphocytes 1.7 thou/uL (1.20-3.40); #Monocytes 0.7 thou/uL (0.11-0.59); #Neutrophils 7.6 thou/uL (1.40-6.50); %Basophils 0.6 % (0.0-1.0); %Eosinophils 0.2 % (0.0-10.0); %Monocytes 7.2 % (0.0-10.0); Hemoglobin 6.9 g/dL (14.0-18.0); Mean Corpuscular HGB CONC 33.6 g/dL (32.0-36.0); Mean Corpuscular Hemoglobin 30.8 pg (27.0-31.0); Mean Corpuscular Volume 91.5 fL (78.0-98.0); Mean Platelet Volume 8.7 fL (7.4-10.4); Platelet Count 94 thou/uL (130-400); RBC Distribution Width 14.6 % (11.5-14.5); Red Blood Cell (RBC) Count 2.24 mill/uL (4.70-6.10); White Blood Cell (WBC) Count 10.2 thou/uL (4.8-10.8)
[2019-07-08 05:33] LABS: Anion Gap 15 mmol/L (10-20); BUN (Urea Nitrogen) 45 mg/dL (8.4-25.7); Calc. Creatinine Clearance 51 mL/min (70-130); Calcium 8.9 mg/dL (7.8-10.44); Carbon Dioxide 19 mmol/L (23-31); Chloride 112 mmol/L (98-107); Estimated GFR-MDRD 57; Glucose 126 mg/dL (80-115); Potassium 3.8 mmol/L (3.5-5.1); Sodium 142 mmol/L (136-145)
--- NOTE | 2019-07-08 06:56 | CON ---
DATE OF CONSULTATION: REASON FOR CONSULT: Asked to see the patient for possible PEG tube placement. HISTORY OF PRESENT ILLNESS: Mr. Floyd is a 68-year-old gentleman. He has been over at the rehab hospital at [facility] and apparently has progressive worsening of oropharyngeal dysphagia and failed a swallowing there and was not able to maintain hydration. His doctor has asked me to see him with regard to possible placing a PEG due to his history of recent stroke, anticoagulation, and stage IV lung cancer who recommend a readmission to the hospital here to evaluate that as it will not be as simple as just having an outpatient PEG tube placed. The patient notes that he has no throat pain or neck pain. He states he really has not much of an appetite, and does not want to eat, apparently he has been getting dehydrated and required IV fluids. He denies any worsening of weakness, focal weakness, or speech or pain. He had an upper and lower endoscopy at this hospital in May 2019 when he was anemic and these revealed no cause of his anemia. With regard to his lung cancer, he finished maintenance therapy about 3 weeks ago and he was going to start Keytruda, that is when he had a stroke. He was on anticoagulation at that time with Eliquis for atrial fibrillation. It seems that his venture capital analyst thought this was related to malignant disease, possibly as he has had previous emboli phenomenon in his legs. Presently, the patient is without complaints. PAST MEDICAL HISTORY: Atrial fibrillation, peripheral vascular disease, cardiomyopathy. A recent stroke last admission in June. He has had gout, dyslipidemia. EF is about 40% to 45%. He has a stage IV lung cancer, details of that are not really clear from reviewing his chart. He has been seeing oncologist at the [facility]. PAST SURGICAL HISTORY: Aortobifemoral bypass, left iliac embolus in 2018, MediPort placement in March 2019, rotator cuff repair, cardiac catheterizations. SOCIAL HISTORY: The patient is , lives with his family. Does not smoke, drink, or use drugs, did smoke in the distant past. FAMILY HISTORY: Noncontributory. ALLERGIES: CODEINE. MEDICATIONS: In the outpatient setting; 1. Eliquis. 2. Cordarone. 3. Aspirin. 4. Atorvastatin. 5. Carvedilol. 6. Colchicine. 7. Folic acid. 8. Losartan. 9. Terazosin. Medications here not have been started yet. PHYSICAL EXAMINATION: VITAL SIGNS: Temperature 98, pulse 65, blood pressure 136/74. LUNGS: Clear. HEART: Regular rate and rhythm with clicks or murmurs. ABDOMEN: Soft and nontender without rebound or guarding. EXTREMITIES: No clubbing, cyanosis, or edema. LABORATORY STUDIES: Last was on 06/28, white count 9, hemoglobin 9.1, platelet count 245. Sodium 136, potassium 3.7, BUN and creatinine 28 and 1.38. ASSESSMENT: This is a 68-year-old, whom we have been asked to place a PEG tube in by his rehab doctor, just not eating well. Apparently, he has not done well on swallowing test. Problem is he is on Eliquis for his atrial fibrillation and had a recent stroke. In talking with Dr. Dolly haas, he is okay with stopping the medicine for PEG tube placement, but he thinks it needs to be stopped for 48 hours. His last dose was this morning, so the earliest this PEG tube can be placed is this Thursday morning 2 days from now. RECOMMENDATIONS: We would continue IV fluids. We would hold Eliquis and we will plan for PEG tube on Thursday once his Eliquis has been held for 48 hours. Job ID: [id number]
[2019-07-08] MEDS: Pantoprazole 40 MG VIAL IVP SCH ×2 (08:30→21:57)
[2019-07-08] MEDS: Folic Acid 1 MG TAB PO SCH (08:31)
[2019-07-08] MEDS: Terazosin HCl 5 MG CAP PO SCH ×2 (08:31→21:57)
[2019-07-08] MEDS: Amiodarone 200 MG TAB PO SCH ×2 (08:32→21:57)
[2019-07-08] MEDS: Carvedilol 3.125 MG TAB PO SCH ×2 (08:32→21:57)
[2019-07-08] MEDS ORDERED: FLU VACC TS2019-20(65YR UP)/PF 180 MCG/0.5 ML SYRINGE IM ONE (09:00)
[2019-07-08] MEDS ORDERED: Aspirin Chewable 81 MG TAB PO SCH (09:00)
[2019-07-08] MEDS ORDERED: Prevnar 13-Val Conj/PF 0.5 ML SYRINGE IM ONE (09:00)
--- NOTE | 2019-07-08 12:25 | PRG ---
DATE OF SERVICE: 07/08/2019 SUBJECTIVE: Mr. Floyd has not been able to eat. They are waiting for speech pathology to evaluate him. OBJECTIVE: VITAL SIGNS: Temperature is 98, , and blood pressure 98/55. ABDOMEN: Soft and nontender. LUNGS: Clear. LABORATORY DATA: White count 10.2, hemoglobin 6.9, platelet count 74,000. Comprehensive metabolic profile is normal except for BUN and creatinine of 45 and 1.49. ASSESSMENT: 1. Oropharyngeal dysphagia after cerebrovascular accident. He has been evaluated by Speech Pathology at the rehab center. He was cleared for clear liquids and also soft foods. He can resume these diets. I have told the nurse that they do not need to wait for speech pathology to re-evaluate him. 2. Anemia. This has been evaluated with upper and lower endoscopy in May 2019 with no overt causes of anemia. 3. Recent cerebrovascular accident. He has been on anticoagulation with Eliquis. Last dose being morning. 4. History of stage IV lung cancer. PLAN: After long discussion with the patient's family at rehab, the patient decided to go and proceed with PEG tube. He was brought back over here for this. He was on his blood thinners as of yesterday morning could not proceed today, will be 40 hours off blood thinners by tomorrow morning. I have placed him on the schedule for a PEG tube tomorrow. Regarding his anemia, I see no signs or evidence of GI blood loss or need for further GI tract evaluation at this time. We will defer management of his anemia to his assistant superintendent, oncologist and this became some sort of acute GI bleeding. Job ID: [id number]
--- NOTE | 2019-07-08 13:11 | PDOC.HOSPP ---
- Subjective Encounter Date: 07/08/19 Encounter Time: 10:45 Subjective: no sob, is recieving his 1 u prbc for today at bedside no flip bleeding per rectum - Objective Vital Signs & Weight: Vital Signs (12 hours) Temp Pulse Pulse Pulse Resp BP BP 07/08/19 10:21 98.9 F 79 18 07/08/19 09:55 98.7 F 77 18 98/55 L 07/08/19 09:10 83 121/64 07/08/19 08:20 98.7 F 83 20 07/08/19 04:11 98.0 F 80 16 121/56 L 07/08/19 03:35 98.4 F 82 18 07/08/19 01:46 97.9 F 84 18 108/53 L 07/08/19 01:31 98.7 F 80 18 106/54 L BP Pulse Ox 07/08/19 10:21 100/55 L 94 L 07/08/19 09:55 94 L 07/08/19 09:10 07/08/19 08:20 121/64 94 L 07/08/19 04:11 95 07/08/19 03:35 119/56 L 96 07/08/19 01:46 92 L 07/08/19 01:31 93 L Weight Weight 164 lb 8 oz I&O: 07/07/19 07/08/19 07/09/19 06:59 06:59 06:59 Intake Total 1000 0 Balance 1000 0 Result Diagrams: 07/08/19 05:00 07/08/19 05:00 Hospitalist ROS - Medication Medications: Active Medications Generic Name Dose Route Start Last Admin Trade Name Fide PRN Reason Stop Dose Admin Amiodarone HCl 200 mg 07/07/19 21:00 07/08/19 08:32 Cordarone PO 200 mg BID PUJA Administration Atorvastatin Calcium 40 mg 07/07/19 21:00 07/07/19 21:09 Lipitor PO 40 mg HS PUJA Administration Carvedilol 3.125 mg 07/07/19 21:00 07/08/19 08:32 Coreg PO 3.125 mg BID PUJA Administration Folic Acid 1 mg 07/08/19 09:00 07/08/19 08:31 Folvite PO 1 mg DAILY PUJA Administration Dextrose/Water 1,000 mls @ 100 mls/hr 07/07/19 20:45 07/08/19 04:16 D5w IV 1,000 mls .Q10H PUJA Administration Pantoprazole Sodium 40 mg 07/08/19 09:00 07/08/19 08:30 Protonix IVP 40 mg Q12HR PUJA Administration Terazosin HCl 5 mg 07/07/19 21:00 07/08/19 08:31 Hytrin PO 5 mg BID PUJA Administration - Exam General Appearance: NAD, awake alert Eye: PERRL, anicteric sclera ENT: no oropharyngeal lesions, moist mucosa Neck: supple, no JVD Heart: RRR, no murmur Respiratory: no wheezes, no rales Gastrointestinal: soft, non-tender, non-distended, normal bowel sounds Extremities: no cyanosis, no edema Neurological: hemiplegia Psychiatric: normal affect, A&O x 3 Hosp A/P (1) Dysphagia Code(s): R13.10 - DYSPHAGIA, UNSPECIFIED Status: Acute (2) H/O: CVA (cerebrovascular accident) Code(s): Z86.73 - PRSNL HX OF TIA (TIA), AND CEREB INFRC W/O RESID DEFICITS Status: Chronic (3) FTT (failure to thrive) in adult Status: Acute (4) Symptomatic anemia Code(s): D64.9 - ANEMIA, UNSPECIFIED Status: Acute (5) Dyslipidemia Code(s): E78.5 - HYPERLIPIDEMIA, UNSPECIFIED Status: Chronic (6) Lung cancer Code(s): C34.90 - MALIGNANT NEOPLASM OF UNSP PART OF UNSP BRONCHUS OR LUNG Status: Chronic (7) PAF (paroxysmal atrial fibrillation) Code(s): I48.0 - PAROXYSMAL ATRIAL FIBRILLATION Status: Chronic (8) Acute kidney injury Code(s): N17.9 - ACUTE KIDNEY FAILURE, UNSPECIFIED Status: Acute - Plan Hb dropped despite 1 u prbc transfusion yesterday, is back to 6.9g this am will give 2 u prbc today, onc consultation likely bm failure with chemo and malignancy, await onc input is on protonix iv q12h, may start soft mech diet with nectar thick liq per GI/ speech adv for peg tube in am, is off eliquis from yesterday continue amiodarone, lipitor, coreg, hytrin, folic acid sbp low around 100's, on D5w for hydration, renal function is holding up d/w and patient at bedside Pallitative care consultation, ?code status, goals of care. has stage 4 adenoca lung on maintenance keytruda (last dose was 3 weeks back per ) he recieved carboplatin and alimta before
[2019-07-08 14:30] VITALS: BMI 22.3
[2019-07-08 20:32] LABS: Hemoglobin 8.9 g/dL (14.0-18.0); Platelet Count 65 thou/uL (130-400)
[2019-07-08] MEDS: Atorvastatin Calcium 40 MG TAB PO SCH (21:57)
--- NOTE | 2019-07-08 21:59 | CON ---
DATE OF CONSULTATION: REASON FOR CONSULT: Stage IV lung cancer. HISTORY OF PRESENT ILLNESS: Mr. Floyd is a 68-year-old gentleman with stage IV adenocarcinoma of the lung. He was diagnosed in January 2019 and has bilateral lung nodules and paratracheal lymph node involvement. He underwent treatment with carboplatin, Alimta, and Keytruda. CT scan on May 13 showed improvement in his disease. He was started on maintenance Alimta and Keytruda and received a dose on June 07. On June 24, he presented to this emergency room with a hemoglobin of 4.4. He was diagnosed with an acute MCA stroke. He was on Eliquis for atrial fibrillation. He went to rehab, where he continued to have dysphagia and failure to thrive. He was sent to this hospital for IV hydration and further evaluation. Dr. Gudino has seen the patient and is planning a PEG tube possibly tomorrow. On admission, his hemoglobin was 6.8. He is receiving 2 units of packed RBCs. We were asked to see the patient regarding his cancer and anemia. PAST MEDICAL HISTORY: 1. Stage IV adenocarcinoma of the lung. 2. Paroxysmal atrial fibrillation. 3. AL. 4. History of blood clots. 5. Chronic anemia. 6. Coronary artery disease. 7. Cardiomyopathy. PAST SURGICAL HISTORY: 1. Left leg bypass. 2. MediPort placement. 3. Recent endoscopies. 4. CABG. ALLERGIES: TO CODEINE. CURRENT MEDICATIONS: 1. Amiodarone. 2. Coreg. 3. Catapres. 4. Colchicine. 5. Folic acid. 6. Loperamide. 7. Tussin syrup. 8. Losartan. 9. MiraLax. 10. Terazosin. 11. Eliquis. 12. Aspirin. 13. Lipitor. FAMILY HISTORY: Father had tuberculosis. SOCIAL HISTORY: , has 4 children. Lives with his spouse. Former smoker. Former alcohol. Former marijuana use. REVIEW OF SYSTEMS: A 10-point review of systems is negative except for fatigue. PHYSICAL EXAMINATION: VITAL SIGNS: Temperature is 98.2, pulse 76, respiratory rate 18, BP is 134/78. He is 97% on room air. GENERAL: Well-developed, well-nourished male, in no acute distress HEENT: Normocephalic, atraumatic. CV: Irregular rate and rhythm. Respirations are nonlabored. NEUROLOGICAL: He is alert. He is able to speak. He has right hemiplegia. PSYCHIATRIC: He is alert and oriented. PERTINENT LABORATORY DATA AND X-RAYS: Current WBCs are 10.2, hemoglobin 6.9, hematocrit 20.5, platelet count is 94,000. PT is 20.3, INR is 1.7, and PTT is 31.5. Sodium is 142, potassium 3.8, chloride 112, CO2 is 19, BUN is 45, creatinine 1.49, calcium is 8.9, bilirubin is 1.7, AST is 25, ALT is 18, alkaline phosphatase is 231. Serum total protein is 7.1, albumin 4.0, globulin 3.1. ASSESSMENT: 1. Stage IV lung cancer. 2. Acute on chronic anemia. 3. Malnutrition secondary to dysphagia. 4. Acute thrombocytopenia. DISCUSSION: The patient's Eliquis has been held for PEG tube placement tomorrow. Discussed with the patient and family further chemotherapy treatments, which they absolutely refused despite good response with prior treatment. His platelets were normal at discharge 9 days ago. Low counts may be due to amiodarone or malnutrition. It is unclear why he has dropped 3 units in 9 days. There is no evidence of bleeding as he had a recent negative endoscopy. He may need capsule endoscopy at some point. He has received 2 units of packed RBC. We will continue to monitor his CBC. Transfuse for hgb between 7-8. The patient will call our office if he wishes to proceed with any further treatment for his cancer. Thank you for the consult. Job ID: [id number] [facility]
[2019-07-09] MEDS: Dextrose 5% in Water 1,000 ML IV SCH ×3 (07:49→20:17)
[2019-07-09] MEDS: Terazosin HCl 5 MG CAP PO SCH ×2 (09:00→21:17)
[2019-07-09] MEDS: Carvedilol 3.125 MG TAB PO SCH ×2 (09:00→21:17)
[2019-07-09] MEDS: Amiodarone 200 MG TAB PO SCH ×3 (09:00→21:11)
[2019-07-09] MEDS: Folic Acid 1 MG TAB PO SCH (09:00)
[2019-07-09] MEDS ORDERED: Ketamine 50 MG/ML (10ML VIAL) ONE (11:35)
[2019-07-09] MEDS ORDERED: Promethazine HCl 25 MG/ML VIAL SLOW IVP PRN (12:13)
[2019-07-09] MEDS ORDERED: Promethazine HCl 25 MG/ML VIAL IM PRN (12:13)
[2019-07-09] MEDS ORDERED: Ondansetron HCl/PF 4 MG/2 ML Vial IVP PRN (12:13)
[2019-07-09] MEDS ORDERED: Morphine 2 MG/ML SYRINGE SLOW IVP SCH (14:15)
[2019-07-09] MEDS: Pantoprazole 40 MG VIAL IVP SCH ×2 (14:45→21:17)
[2019-07-09] MEDS ORDERED: PROPOFOL 200 MG/20 ML VIAL ONE (15:01)
[2019-07-09] MEDS ORDERED: Pancrelipase DR 12000 1 CAP FS PRN (20:23)
[2019-07-09] MEDS ORDERED: Sodium Bicarbonate Tab 325 MG TAB PER TUBE PRN (20:23)
[2019-07-09] MEDS: Atorvastatin Calcium 40 MG TAB PO SCH (21:17)
[2019-07-10] MEDS: Dextrose 5% in Water 1,000 ML IV SCH ×2 (06:32→17:07)
[2019-07-10] MEDS: Folic Acid 1 MG TAB PO SCH (09:11)
[2019-07-10] MEDS: Carvedilol 3.125 MG TAB PO SCH ×2 (09:11→21:24)
[2019-07-10] MEDS: Pantoprazole 40 MG VIAL IVP SCH ×2 (09:11→21:25)
[2019-07-10] MEDS: Amiodarone 200 MG TAB PO SCH ×2 (09:11→21:25)
[2019-07-10] MEDS: Terazosin HCl 5 MG CAP PO SCH ×2 (09:19→21:26)
--- NOTE | 2019-07-10 15:58 | PDOC.HOSPP ---
- Subjective Encounter Date: 07/10/19 Encounter Time: 14:30 Subjective: feels better, no pain at peg insertion site daughter at bedside - Objective Vital Signs & Weight: Vital Signs (12 hours) Temp Pulse Resp BP Pulse Ox 07/10/19 08:50 98.7 F 85 16 119/56 L 94 L 07/10/19 08:00 94 L Weight Admit Weight 164 lb 4.8 oz Weight 164 lb 8 oz I&O: 07/09/19 07/10/19 07/11/19 06:59 06:59 06:59 Intake Total 5180 957 4566 Output Total 0 Balance 9768 415 7732 Result Diagrams: 07/08/19 20:27 07/08/19 05:00 Hospitalist ROS - Medication Medications: Active Medications Generic Name Dose Route Start Last Admin Trade Name Freq PRN Reason Stop Dose Admin Acetaminophen 650 mg 07/07/19 18:01 07/09/19 21:17 Tylenol PO 650 mg Q4H PRN Administration Headache/Fever/Mild Pain (1-3) Amiodarone HCl 200 mg 07/07/19 21:00 07/10/19 09:11 Cordarone PO 200 mg BID PUJA Administration Atorvastatin Calcium 40 mg 07/07/19 21:00 07/09/19 21:17 Lipitor PO 40 mg HS PUJA Administration Carvedilol 3.125 mg 07/07/19 21:00 07/10/19 09:11 Coreg PO 3.125 mg BID PUJA Administration Folic Acid 1 mg 07/08/19 09:00 07/10/19 09:11 Folvite PO 1 mg DAILY PUJA Administration Dextrose/Water 1,000 mls @ 100 mls/hr 07/07/19 20:45 07/10/19 06:32 D5w IV 1,000 mls .Q10H PUJA Administration Ondansetron HCl 4 mg 07/07/19 18:01 07/09/19 14:50 Zofran IVP 4 mg Q6H PRN Administration Nausea/Vomiting Pantoprazole Sodium 40 mg 07/08/19 09:00 07/10/19 09:11 Protonix IVP 40 mg Q12HR PUJA Administration Sodium Chloride 10 ml 07/08/19 07:38 07/09/19 21:17 Flush - Normal Saline IVF 10 ml PRN PRN Administration Saline Flush Terazosin HCl 5 mg 07/07/19 21:00 07/10/19 09:19 Hytrin PO 5 mg BID PUJA Administration - Exam General Appearance: NAD, awake alert Eye: PERRL, anicteric sclera ENT: no oropharyngeal lesions, moist mucosa Neck: supple, no JVD Heart: RRR, no murmur Respiratory: no wheezes, no rales Gastrointestinal: soft, non-distended, normal bowel sounds Gastrointestinal - other findings: peg+ Extremities: no cyanosis, no edema Neurological: hemiplegia Psychiatric: normal affect, A&O x 3 Hosp A/P (1) Dysphagia Code(s): R13.10 - DYSPHAGIA, UNSPECIFIED Status: Acute (2) H/O: CVA (cerebrovascular accident) Code(s): Z86.73 - PRSNL HX OF TIA (TIA), AND CEREB INFRC W/O RESID DEFICITS Status: Chronic (3) FTT (failure to thrive) in adult Status: Acute (4) Symptomatic anemia Code(s): D64.9 - ANEMIA, UNSPECIFIED Status: Acute (5) Dyslipidemia Code(s): E78.5 - HYPERLIPIDEMIA, UNSPECIFIED Status: Chronic (6) Lung cancer Code(s): C34.90 - MALIGNANT NEOPLASM OF UNSP PART OF UNSP BRONCHUS OR LUNG Status: Chronic (7) PAF (paroxysmal atrial fibrillation) Code(s): I48.0 - PAROXYSMAL ATRIAL FIBRILLATION Status: Chronic (8) Acute kidney injury Code(s): N17.9 - ACUTE KIDNEY FAILURE, UNSPECIFIED Status: Acute - Plan Recieved total of 3 u prbc this admission. likely bm failure with chemo and malignancy on soft mech diet with nectar thick liq per GI/speech adv peg feeding, will hold off eliquis due to severe anemia. continue amiodarone, lipitor, coreg, hytrin, folic acid Pallitative care consultation, ?code status, goals of care. has stage 4 adenoca lung on maintenance keytruda and alimta(last dose was 3 weeks back per ) family prefer to take him home and not to rehab they want a hospital bed, comode, wheel chair for use at home, will get CM for help
--- NOTE | 2019-07-10 17:05 | PRG ---
DATE OF SERVICE: 07/10/2019 SUBJECTIVE: This is a 68-year-old male, who came here for IV hydration and also had a G-tube placement. He underwent G-tube placement yesterday. He is tolerating tube feeding very well. His appetite remains very poor. Does not want to eat anything by mouth. He has had no stool over the last 24 hours. He has some mild abdominal discomfort over the G-tube site. However, the G-tube site appears very healthy. OBJECTIVE: GENERAL: Appears comfortable. VITAL SIGNS: Afebrile, pulse is 85, blood pressure is 119/86. CARDIOVASCULAR AND LUNGS: Within normal limits. ABDOMEN: Soft. The G-tube site appears very healthy. The dressing was removed. RECOMMENDATIONS: 1. The patient encouraged to take medicine . 2. Continue tube feeding. The plan was to send him back to the ER, but the patient really does not want to go to ER and he wants to go home. We will call Social Service to see the patient tomorrow. The arrangements can be made to get the patient home. Job ID: [id number]
[2019-07-10] MEDS: Atorvastatin Calcium 40 MG TAB PO SCH (21:24)
[2019-07-11] MEDS: Dextrose 5% in Water 1,000 ML IV SCH (05:44)
[2019-07-11] MEDS ORDERED: Terazosin HCl 5 MG CAP PO SCH (09:00)
[2019-07-11] MEDS: Folic Acid 1 MG TAB PO SCH (09:58)
[2019-07-11] MEDS: Carvedilol 3.125 MG TAB PO SCH (09:58)
[2019-07-11] MEDS: Amiodarone 200 MG TAB PO SCH (09:58)
--- NOTE | 2019-07-11 10:23 | PDOC.PALCO ---
Palliative Care Consult - Consult Details Requesting Physician: Dr Olivera Reason for Consult: goals of care, advance directives assistance, family support Family Members Present: - Pertinent HPI Patient is a 68 year old male who was discharged to rehab after a recent CVA. he began having a decrease in appetite/intake and increaser in weakness. This lead to poor to minimal participation in rehab therapies. Patient was sent to [facility] for evaluation and possible placement of PEG tube. - Pertinent PMH left hemiplegia secondary to cva. Adenocarcinoma of lung IV, atrail fib, cardiomypoathy, pulmonary hypertension benign prostatic hypertrophy, PVD, - Social History Smoking Status: Never smoker Smoking: no tobacco exposure Alcohol Use: none Drug Use History: none Living Situation: - Medications MAR Reviewed: Yes - Allergies Allergies/Adverse Reactions: Allergies Allergy/AdvReac Type Severity Reaction Status Date / Time codeine Allergy Hives Verified 06/04/19 00:43 - Objective Vital Signs: Vital Signs - Most Recent Temp Pulse Resp BP Pulse Ox 99.8 F H 98 20 117/56 L 94 L 07/11/19 08:00 07/11/19 08:00 07/11/19 08:00 07/11/19 08:00 07/11/19 08:00 Palliative Performance Scale: 40 - Physical Exam Constitutional: NAD Deviation from normal: Emaciated, chronically ill appearing HEENT: moist MMs, sclera anicteric, EOMI Deviation from normal: mild coarse breath sounds, diminished Cardiovascular: no significant murmur Gastrointestinal: soft, non-tender Deviation from normal: PEG Deviation from normal: left hemplegia Deviation from normal: weak, depressed Skin: cap refill <2 seconds - Problem List (1) Palliative care encounter Code(s): Z51.5 - ENCOUNTER FOR PALLIATIVE CARE Current Visit: Yes Status: Acute (2) Dysphagia Code(s): R13.10 - DYSPHAGIA, UNSPECIFIED Current Visit: Yes Status: Acute (3) FTT (failure to thrive) in adult Current Visit: Yes Status: Acute (4) Stroke Code(s): I63.9 - CEREBRAL INFARCTION, UNSPECIFIED Current Visit: No Status: Acute (5) Lung cancer Code(s): C34.90 - MALIGNANT NEOPLASM OF UNSP PART OF UNSP BRONCHUS OR LUNG Current Visit: No Status: Chronic - Plan/Recommendations Plan: and receiving teaching in relation to PEG, feedings and medication use. *Discussed resuscitation status, wish to continue to remain with full resuscitative measures in place. *Desire to return home to receive care/gain strength and continue therapies *Strong family support through [facility] [45] minutes spent on this encounter with >50% of the time in counseling and coordination of care. Thank you for this very appropriate consult.
--- NOTE | 2019-07-11 12:11 | PDOC.HOSPP ---
- Subjective Encounter Date: 07/11/19 Encounter Time: 10:15 Subjective: no sob or pain at bedside - Objective Vital Signs & Weight: Vital Signs (12 hours) Temp Pulse Resp BP Pulse Ox 07/11/19 11:00 96 07/11/19 08:00 99.8 F H 98 20 117/56 L 94 L Weight Admit Weight 164 lb 4.8 oz Weight 164 lb 8 oz I&O: 07/10/19 07/11/19 07/12/19 06:59 06:59 06:59 Intake Total 135 3558 Balance 135 3558 Result Diagrams: 07/08/19 20:27 07/08/19 05:00 Hospitalist ROS - Medication Medications: Active Medications Generic Name Dose Route Start Last Admin Trade Name Freq PRN Reason Stop Dose Admin Acetaminophen 650 mg 07/07/19 18:01 07/09/19 21:17 Tylenol PO 650 mg Q4H PRN Administration Headache/Fever/Mild Pain (1-3) Amiodarone HCl 200 mg 07/07/19 21:00 07/11/19 09:58 Cordarone PO 200 mg BID PUJA Administration Atorvastatin Calcium 40 mg 07/07/19 21:00 07/10/19 21:24 Lipitor PO 40 mg HS PUJA Administration Carvedilol 3.125 mg 07/07/19 21:00 07/11/19 09:58 Coreg PO 3.125 mg BID PUJA Administration Folic Acid 1 mg 07/08/19 09:00 07/11/19 09:58 Folvite PO 1 mg DAILY PUJA Administration Dextrose/Water 1,000 mls @ 100 mls/hr 07/07/19 20:45 07/11/19 05:44 D5w IV 1,000 mls .Q10H PUJA Administration Ondansetron HCl 4 mg 07/07/19 18:01 07/09/19 14:50 Zofran IVP 4 mg Q6H PRN Administration Nausea/Vomiting Pantoprazole Sodium 40 mg 07/08/19 09:00 07/10/19 21:25 Protonix IVP 40 mg Q12HR PUJA Administration Sodium Chloride 10 ml 07/08/19 07:38 07/10/19 21:25 Flush - Normal Saline IVF 10 ml PRN PRN Administration Saline Flush Terazosin HCl 5 mg 07/11/19 09:00 07/11/19 09:58 Hytrin PO 5 mg BID PUJA Administration - Exam General Appearance: awake alert Eye: PERRL, anicteric sclera ENT: no oropharyngeal lesions, moist mucosa Neck: symmetric, no JVD Heart: RRR, no murmur Respiratory: no wheezes, no rales Gastrointestinal: soft, non-distended, normal bowel sounds Gastrointestinal - other findings: peg+ Extremities: no clubbing, no edema Skin: normal turgor, no rashes Neurological: hemiplegia Psychiatric: normal affect, A&O x 3 Hosp A/P (1) Dysphagia Code(s): R13.10 - DYSPHAGIA, UNSPECIFIED Status: Acute (2) H/O: CVA (cerebrovascular accident) Code(s): Z86.73 - PRSNL HX OF TIA (TIA), AND CEREB INFRC W/O RESID DEFICITS Status: Chronic (3) FTT (failure to thrive) in adult Status: Acute (4) Symptomatic anemia Code(s): D64.9 - ANEMIA, UNSPECIFIED Status: Acute (5) Dyslipidemia Code(s): E78.5 - HYPERLIPIDEMIA, UNSPECIFIED Status: Chronic (6) Lung cancer Code(s): C34.90 - MALIGNANT NEOPLASM OF UNSP PART OF UNSP BRONCHUS OR LUNG Status: Chronic (7) PAF (paroxysmal atrial fibrillation) Code(s): I48.0 - PAROXYSMAL ATRIAL FIBRILLATION Status: Chronic (8) Acute kidney injury Code(s): N17.9 - ACUTE KIDNEY FAILURE, UNSPECIFIED Status: Acute - Plan Recieved total of 3 u prbc this admission. likely bm failure with chemo and malignancy. peg feeding, will hold off eliquis due to severe anemia. continue amiodarone, lipitor, coreg, hytrin, folic acid Pallitative care consultation, ?code status, goals of care. has stage 4 adenoca lung on maintenance keytruda and alimta(last dose was 3 weeks back per ) family prefer to take him home and not to rehab they want a hospital bed, comode, wheel chair for use at home, d/w CM this am. Family to learn peg tube care, PT to mobilize as tolerated
--- NOTE | 2019-07-11 12:43 | PQF ---
CATRACHO RESTREPO JR, VINAYA KUMAR MD [id number] CLINICAL DOCUMENTATION IMPROVEMENT CLARIFICATION FORM: ICD-10 Updated PLEASE DO AN ADDENDUM TO THE PROGRESS NOTE WITH ANY DOCUMENTATION UPDATES OR ADDITIONS AND CARRY THROUGH TO DC SUMMARY. THANK YOU. Date: 07/11/19, 07/12/2019, 07/13/2019 ATTN: DR. Guru ORTIZ Please exercise your independent, professional judgment in responding to the clarification form. Clinical indicators are provided on the bottom of this form for your review. Please check appropriate box(s): [ x ] Protein Calorie Malnutrition: [ ] Mild [ x] Moderate [ ] Severe [ ] Cachexia [ ] Other diagnosis [ ] Unable to determine In addition, please specify: Present on Admission (POA): [ x ] Yes [ ] No [ ] Unable to determine CLINICAL INDICATORS - SIGNS / SYMPTOMS / LABS / RESULTS AND LOCATION IN MR 07/07 CONSULT (CYNTHIA) HE HAS BEEN AT THE REHAB AND APPARENTLY HAS PROGRESSIVE WORSENING OF OROPHARYNGEAL DYSPHAGIA AND FAILED A SWALLOWING THERE AND WAS NOT ABLE TO MAINTAIN HYDRATION 07/08 : DIETARY CONSULT : NUTRITION DIAGNOSIS SUGGESTIVE OF SEVERE MALNUTRITION IN THE CONTEXT OF RECENT ILLNESS, REPORT OF PATIENT NOT EATING AT REHAB X 2 WEEKS, 7% WEIGHT LOSS IN TWO WEEKS, 07/08 CONSULT (JACEK) ASSESSMENT: 3). MALNUTRITION SECONDARY TO DYSPHAGIA 07/10: PN (RAGU) HIS APPETITE REMAINS VERY POOR. DOES NOT WANT TO EAT ANYTHING MY MOUTH. RISK: HX LUNG CA STAGE IV, RECENT CVA , DEHYDRATION, OROPHARYNGEAL DYSPHAGIA (PN/ DERBES) 07/07 TREATMENTS: PEG TUBE PLACEMENT 07/09 TUBE FEEDINGS JEVITY 1.5 TF DIETARY CONSULT 07/08 Moderate Malnutrition (in acute illness) Energy Intake: <75% of estimated energy requirement for > 7 days Weight Loss: 1-2%/1 week; 5%/ 1 month; 7.5%/3 months Other: mild body fat loss; mild muscle mass loss; mild fluid accumulation; Severe Malnutrition (in acute illness) Energy Intake: < 50% of estimated energy requirement for > 5 days Weight Loss: >1-2%/1 week; >5%/1 month; >7.5%/3 months Other: moderate body fat loss; moderate muscle mass loss; moderate- severe fluid accumulation; 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 LEONARDA (This form is maintained as a part of the permanent medical record) 2015 [employer]. All Rights Reserved [email or web address]
[2019-07-11 13:36] LABS: #Eosinphils 0.1 thou/uL (0.0-0.7); #Lymphocytes 1.8 thou/uL (1.20-3.40); #Monocytes 0.8 thou/uL (0.11-0.59); #Neutrophils 9.4 thou/uL (1.40-6.50); %Basophils 0.2 % (0.0-1.0); %Eosinophils 1.2 % (0.0-10.0); %Lymphocytes 15.1 % (21.0-51.0); %Monocytes 6.4 % (0.0-10.0); %Neutrophils 77.1 % (42.0-75.0); Hemoglobin 5.4 g/dL (14.0-18.0); Mean Corpuscular HGB CONC 34.8 g/dL (32.0-36.0); Mean Corpuscular Hemoglobin 30.9 pg (27.0-31.0); Mean Corpuscular Volume 88.9 fL (78.0-98.0); Mean Platelet Volume 9.7 fL (7.4-10.4); Platelet Count 49 thou/uL (130-400); RBC Distribution Width 15.2 % (11.5-14.5); Red Blood Cell (RBC) Count 1.76 mill/uL (4.70-6.10); White Blood Cell (WBC) Count 12.2 thou/uL (4.8-10.8)
[2019-07-11 13:45] LABS: Anion Gap 8 mmol/L (10-20); BUN (Urea Nitrogen) 25 mg/dL (8.4-25.7); Calc. Creatinine Clearance 74 mL/min (70-130); Calcium 7.8 mg/dL (7.8-10.44); Carbon Dioxide 25 mmol/L (23-31); Chloride 96 mmol/L (98-107); Estimated GFR-MDRD 88; Glucose 176 mg/dL (80-115); Potassium 3.2 mmol/L (3.5-5.1); Sodium 126 mmol/L (136-145)
[2019-07-11] MEDS: Pantoprazole 40 MG VIAL IVP SCH (16:36)
[2019-07-11 17:34] LABS: ALT (SGPT) 22 U/L (8-55); AST (SGOT) 25 U/L (5-34); Albumin 3.1 g/dL (3.4-4.8); Alkaline Phosphatase 226 U/L (40-110); Bilirubin, Direct 0.5 mg/dL (0.1-0.3); Bilirubin, Total 1.1 mg/dL (0.2-1.2); Protein, Total 5.4 g/dL (5.8-8.1)
[2019-07-11] MEDS: Acetaminophen 325 MG TAB PER TUBE PRN (19:48)
[2019-07-11 19:53] LABS: #Basophils 0.1 thou/uL (0.0-0.2); #Eosinphils 0.1 thou/uL (0.0-0.7); #Lymphocytes 1.9 thou/uL (1.20-3.40); %Basophils 0.7 % (0.0-1.0); %Eosinophils 0.7 % (0.0-10.0); %Lymphocytes 16.8 % (21.0-51.0); %Neutrophils 72.7 % (42.0-75.0); Hemoglobin 4.9 g/dL (14.0-18.0); Mean Corpuscular HGB CONC 30.6 g/dL (32.0-36.0); Mean Corpuscular Hemoglobin 27.1 pg (27.0-31.0); Mean Corpuscular Volume 88.6 fL (78.0-98.0); Mean Platelet Volume 10.2 fL (7.4-10.4); Platelet Count 54 thou/uL (130-400); RBC Distribution Width 15.3 % (11.5-14.5); Red Blood Cell (RBC) Count 1.81 mill/uL (4.70-6.10)
[2019-07-11 19:59] LABS: Lactic Acid 1.5 mmol/L (0.5-2.2)
[2019-07-11 20:06] LABS: ALT (SGPT) 21 U/L (8-55); AST (SGOT) 26 U/L (5-34); Albumin 3.1 g/dL (3.4-4.8); Alkaline Phosphatase 228 U/L (40-110); Anion Gap 12 mmol/L (10-20); BUN (Urea Nitrogen) 27 mg/dL (8.4-25.7); Bilirubin, Total 1.1 mg/dL (0.2-1.2); CK (CPK) 522 U/L (30-200); Calc. Creatinine Clearance 71 mL/min (70-130); Carbon Dioxide 23 mmol/L (23-31); Chloride 97 mmol/L (98-107); Estimated GFR-MDRD 84; Globulin 2.4 g/dL (2.4-3.5); Glucose 124 mg/dL (80-115); Magnesium 1.7 mg/dL (1.6-2.6); Potassium 3.3 mmol/L (3.5-5.1); Protein, Total 5.5 g/dL (5.8-8.1); Sodium 129 mmol/L (136-145)
[2019-07-11 20:26] LABS: Bilirubin Negative (Negative); Blood, Urine Negative (Negative); Clarity Clear (Clear); Glucose, Urine (Dipstick) Normal (Negative); Leukocyte Negative Leu/uL (Negative); Nitrite Negative (Negative); Protein, Urine (Dipstick) 10 mg/dL (Neg-Trace); RBC/HPF 0-3 HPF (0-3); Squamous Epithelial 0-3 HPF (0-3); Urobilinogen Normal mg/dL (Less than 2); WBC/HPF 0-3 HPF (0-3)
[2019-07-11 20:27] LABS: Bacteria/HPF 1+ HPF (None Seen)
[2019-07-11 20:28] LABS: Urine Culture Reflex No No
[2019-07-11] MEDS ORDERED: diphenhydrAMINE 25 MG in Sodium Chloride 0.9% 50 ML IVPB SCH (20:30)
--- NOTE | 2019-07-11 20:41 | RAD ---
Chest AP view INDICATION: Fever and hypotension COMPARISON: Prior exam dated April 12, 2019 FINDINGS: Lungs:The lungs are clear Cardiac silhouette:Stable mild cardiomegaly Pulmonary vasculature:Normal Pleural spaces:No pleural effusion or pneumothorax is demonstrated. Upper abdomen:No abnormality seen. Osseous structures: No acute osseous abnormality. Additional findings:Stable right chest wall port. IMPRESSION: No acute cardiopulmonary abnormality.
[2019-07-11] MEDS: Acetaminophen 500 MG TAB PO SCH (20:55)
[2019-07-11] MEDS: Carvedilol 3.125 MG TAB PER TUBE SCH (22:32)
[2019-07-11] MEDS: Terazosin HCl 5 MG CAP PER TUBE SCH (22:32)
[2019-07-11] MEDS: Atorvastatin Calcium 40 MG TAB PER TUBE SCH (22:32)
--- NOTE | 2019-07-11 23:55 | PDOC.EVN ---
Event Note - Event Note Event Note: Notified by RN. at 19:24 regarding elevated temp of 101.9 and BP dropping from 125 to 106 systolic 15 min into PRBC transfusion. Patient given Tylenol and benadryl. bag to be sent to reassess for compatibility. 2unit to be started after meds. If reaction recurs, Dr. Beckwith advised to contact Oncologist paleontology teacher. Later notified that family reportedly upset at bedside. Dr. Lima notified who was kindly agreeable to see patient/family.
[2019-07-12] MEDS: Amiodarone 200 MG TAB PER TUBE SCH ×3 (00:23→20:45)
[2019-07-12 02:43] LABS: #Basophils 0.1 thou/uL (0.0-0.2); #Eosinphils 0.2 thou/uL (0.0-0.7); #Lymphocytes 2.1 thou/uL (1.20-3.40); #Monocytes 0.9 thou/uL (0.11-0.59); #Neutrophils 10.6 thou/uL (1.40-6.50); %Basophils 0.5 % (0.0-1.0); %Eosinophils 1.1 % (0.0-10.0); %Lymphocytes 15.5 % (21.0-51.0); %Monocytes 6.3 % (0.0-10.0); %Neutrophils 76.6 % (42.0-75.0); Mean Corpuscular HGB CONC 35.7 g/dL (32.0-36.0); Mean Corpuscular Hemoglobin 31.1 pg (27.0-31.0); Mean Corpuscular Volume 87.1 fL (78.0-98.0); Mean Platelet Volume 9.9 fL (7.4-10.4); Platelet Count 45 thou/uL (130-400); RBC Distribution Width 14.5 % (11.5-14.5); Red Blood Cell (RBC) Count 2.26 mill/uL (4.70-6.10); White Blood Cell (WBC) Count 13.8 thou/uL (4.8-10.8)
[2019-07-12] MEDS ORDERED: Sodium Chloride 0.9% 250 ML IVPB SCH (03:00)
[2019-07-12] MEDS: Acetaminophen 325 MG TAB PER TUBE PRN (03:52)
[2019-07-12 08:30] LABS: Reticulocyte Count 5.6 % (0.5-1.5)
[2019-07-12] MEDS: Carvedilol 3.125 MG TAB PER TUBE SCH ×2 (09:49→20:45)
[2019-07-12] MEDS: Folic Acid 1 MG TAB PER TUBE SCH (09:49)
[2019-07-12] MEDS: Terazosin HCl 5 MG CAP PER TUBE SCH ×2 (09:49→20:45)
--- NOTE | 2019-07-12 10:05 | OP ---
DATE OF PROCEDURE: 07/09/2019 PROCEDURE PERFORMED: Esophagogastroduodenoscopy with endoscopic gastrostomy tube placement. PREOPERATIVE DIAGNOSES: Dysphagia, failure to thrive, poor nutritional status. POSTOPERATIVE DIAGNOSES: Mild heme staining of the bulb on the descending duodenum. However, water washout, it revealed benign pathology. He does have duodenitis. DESCRIPTION OF PROCEDURE: The patient was given IV Ancef 2 g in Day Surgery before procedure. The patient was placed on his back and a bite block was placed. The patient was given sedation by Anesthesia Department. A Pentax video gastroscope under direct vision passed down the oropharynx past the GE junction into the stomach and subsequently into the descending duodenum. The esophageal mucosa appeared normal. In the GE junction, no lesion seen. In the fundus, cardia, gastric body, and gastric antrum, no lesion seen. The scope advanced into the duodenal bulb. There was some pinkish fluid seen in the bulb and around the duodenal sweep. This was suctioned out and water was used to wash out, although there was some heme staining of the mucosa seen to begin with, after water washout, I did not see any oozing of blood or any pathology. The scope was withdrawn back and one more time advanced back into the duodenum. There was no pathology seen except duodenitis. A G-tube site was marked by transillumination and also confirming by applying finger pressure over the wall. The site was surgically prepped and clean. The site was anesthetized with 1% Xylocaine infiltration. A 0.5 cm sized incision was made in the skin and subcutaneous tissue. site and advanced into the stomach. The guidewire was advanced into the stomach. This was grasped with polypectomy snare and pulled out somewhat. The gastrostomy tube was guidewire protruding outside the mouth. The wire was pulled back retrograde and the tube left in place. The patient re-scoped to confirm proper placement of G-tube. No complication noted. The stomach decompressed and the scope removed. RECOMMENDATION: 1. N.p.o. until 4:00 p.m. 2. May start feeding after 6:00 p.m. today. Job ID: [id number]
--- NOTE | 2019-07-12 10:06 | PDOC.MOPN ---
Interval History: Pt feeling ok, not much improvement in PS since PEG placement. Spoke to and daughter at the bedside. - Vital Signs Vital Signs: Vital Signs (12 hours) Temp Pulse Pulse Resp BP BP Pulse Ox 07/12/19 08:00 97.3 F L 84 20 104/53 L 100 07/12/19 05:25 98.9 F 90 16 107/54 L 100 07/12/19 03:49 99.4 F 83 16 98/50 L 100 07/12/19 02:48 99.2 F 90 16 89/54 L 100 07/12/19 00:30 98.5 F 87 18 106/54 L 100 Weight Admit Weight 164 lb 4.8 oz Weight 164 lb 8 oz - Physical Exam General: Alert, Oriented x3, Cooperative, No acute distress Lungs: Normal air movement Cardiovascular: Regular rate Abdomen: Soft, Other (PEG in place) Psych/Mental Status: Other (depressed) - Labs Result Diagrams: 07/12/19 02:32 07/11/19 19:33 Lab results: Laboratory Results - last 24 hr 07/12/19 02:32: Retic Count 5.6 H, Immature Retic Fraction 0.679 H 07/12/19 02:32: WBC 13.8 H, RBC 2.26 L, Hgb 7.0 L, Hct 19.7 L, MCV 87.1, MCH 31.1 H, MCHC 35.7, RDW 14.5, Plt Count 45 L, MPV 9.9, Neutrophils % 76.6 H, Neutrophils % (Manual) Not Reportable, Lymphocytes % 15.5 L, Monocytes % 6.3, Eosinophils % 1.1, Basophils % 0.5, Neutrophils # 10.6 H, Lymphocytes # 2.1, Monocytes # 0.9 H, Eosinophils # 0.2, Basophils # 0.1 07/11/19 20:05: Urine Color Light-Yellow, Urine Clarity Clear, Urine pH 5.5, Ur Specific [place] 1.016, Urine Protein 10, Urine Glucose (UA) Normal, Urine Ketones Negative, Urine Blood Negative, Urine Nitrite Negative, Urine Bilirubin Negative, Urine Urobilinogen Normal, Ur Leukocyte Esterase Negative, Urine RBC 0 -3, Urine WBC 0-3, Ur Squamous Epith Cells 0-3, Urine Bacteria 1+, Urine Culture Reflexed No 07/11/19 19:33: WBC 11.0 H, RBC 1.81 L, Hgb 4.9 L*, Hct 16.1 L, MCV 88.6, MCH 27.1, MCHC 30.6 L, RDW 15.3 H, Plt Count 54 L, MPV 10.2, Neutrophils % 72.7, Neutrophils % (Manual) Not Reportable, Lymphocytes % 16.8 L, Monocytes % 9.0, Eosinophils % 0.7, Basophils % 0.7, Neutrophils # 8.0 H, Lymphocytes # 1.9, Monocytes # 1.0 H, Eosinophils # 0.1, Basophils # 0.1 07/11/19 19:33: Lactic Acid 1.5 07/11/19 19:33: Sodium 129 L, Potassium 3.3 L, Chloride 97 L, Carbon Dioxide 23 , Anion Gap 12, BUN 27 H, Creatinine 1.07, Estimated GFR (MDRD) 84, Glucose 124 H, Calcium 8.0, Magnesium 1.7, Total Bilirubin 1.1, AST 26, ALT 21, Alkaline Phosphatase 228 H, Creatine Kinase 522 H, Serum Total Protein 5.5 L, Albumin 3.1 L, Globulin 2.4, Albumin/Globulin Ratio 1.3 07/11/19 16:53: Vitamin B12 791 07/11/19 16:53: Folate 13.30 07/11/19 16:53: Lactate Dehydrogenase 386 H 07/11/19 16:53: Total Bilirubin 1.1, Direct Bilirubin 0.5 H, AST 25, ALT 22, Alkaline Phosphatase 226 H, Serum Total Protein 5.4 L, Albumin 3.1 L 07/11/19 16:53: Blood Type B POSITIVE, Antibody Screen NEGATIVE, Crossmatch See Detail 07/11/19 13:00: WBC 12.2 H, RBC 1.76 L, Hgb 5.4 L*, Hct 15.6 L, MCV 88.9, MCH 30.9, MCHC 34.8, RDW 15.2 H, Plt Count 49 L, MPV 9.7, Neutrophils % 77.1 H, Neutrophils % (Manual) Not Reportable, Lymphocytes % 15.1 L, Monocytes % 6.4, Eosinophils % 1.2, Basophils % 0.2, Neutrophils # 9.4 H, Lymphocytes # 1.8, Monocytes # 0.8 H, Eosinophils # 0.1, Basophils # 0.0 07/11/19 13:00: Sodium 126 L, Potassium 3.2 L, Chloride 96 L, Carbon Dioxide 25 , Anion Gap 8 L, BUN 25, Creatinine 1.02, Estimated GFR (MDRD) 88, Glucose 176 H , Calcium 7.8 07/07/19 20:51: Crossmatch See Detail A/P - Problem (1) Symptomatic anemia Current Visit: No Code(s): D64.9 - ANEMIA, UNSPECIFIED Status: Acute (2) Lung cancer Current Visit: No Code(s): C34.90 - MALIGNANT NEOPLASM OF UNSP PART OF UNSP BRONCHUS OR LUNG Status: Chronic (3) GI bleed Current Visit: No Code(s): K92.2 - GASTROINTESTINAL HEMORRHAGE, UNSPECIFIED Status: Suspected - Plan Plan: # Lung Cancer -- declines further treatment -- palliative care has seen patient # Anemia -- Hb improved after blood transfusion but then again dropped, now s/p 1 unit with improvement from 4.9 > 7.0. -- Similar episode in 05/2018 and EGD and Colonoscopy were negative for a source -- occult stool negative x 1 -- No signs of hemolysis on labs and he has an elevated retic which shows his bone marrow is responding appropriately to his anemia so he likely is having a GI bleed off/on, potentially from a small bowel source. Could consider a capsule endoscopy as an outpatient. transfuse PRBC for goal Hb 7.0 f/u iron studies to determine if IV iron would be beneficial
[2019-07-12 10:20] LABS: Hemoglobin 6.9 g/dL (14.0-18.0); Mean Corpuscular HGB CONC 35.2 g/dL (32.0-36.0); Mean Corpuscular Hemoglobin 30.7 pg (27.0-31.0); Mean Corpuscular Volume 87.1 fL (78.0-98.0); Mean Platelet Volume 10.1 fL (7.4-10.4); Platelet Count 53 thou/uL (130-400); RBC Distribution Width 14.7 % (11.5-14.5); Red Blood Cell (RBC) Count 2.24 mill/uL (4.70-6.10); White Blood Cell (WBC) Count 13.4 thou/uL (4.8-10.8)
[2019-07-12 10:36] LABS: Iron 54 ug/dL (65-175); Iron Binding Capacity, Total 273 mcg/dL (261-462)
[2019-07-12 11:19] LABS: Anisocytosis SLIGHT = 6-15 cells (100X) (0-5/hpf); Band 16 % (5-11); Eosinophils 1 % (0-10); Lymphocytes 17 % (21-51); MDiff Complete? YES; Monocytes 5 % (0-10); Neutrophil 61 % (42-75); Nucleated RBC 1 % (0); Platelet Morphology Comment Appears Decreased; Polychromasia MODERATE = 3-4 cells (100X) (0-2/hpf)
[2019-07-12] MEDS ORDERED: diphenhydrAMINE 50 MG/ML VIAL IVP SCH (11:45)
[2019-07-12] MEDS: Acetaminophen 500 MG TAB PO SCH (13:00)
--- NOTE | 2019-07-12 16:29 | PDOC.HOSPP ---
- Subjective Encounter Date: 07/12/19 Encounter Time: 13:00 Subjective: no sob, awakens easily a bit lethargic and daughter at bedside - Objective Vital Signs & Weight: Vital Signs (12 hours) Temp Pulse Pulse Pulse Resp BP BP 07/12/19 13:30 97.2 F L 86 18 104/57 L 07/12/19 13:21 97.6 F 84 18 117/58 L 07/12/19 13:12 84 117/58 L 07/12/19 12:36 99.7 F H 07/12/19 12:19 99.9 F H 07/12/19 11:55 100.5 F H 80 20 07/12/19 08:00 97.3 F L 84 20 07/12/19 05:25 98.9 F 90 16 BP Pulse Ox 07/12/19 13:30 07/12/19 13:21 07/12/19 13:12 07/12/19 12:36 07/12/19 12:19 07/12/19 11:55 102/49 L 100 07/12/19 08:00 104/53 L 100 07/12/19 05:25 107/54 L 100 Weight Admit Weight 164 lb 4.8 oz Weight 164 lb 8 oz I&O: 07/11/19 07/12/19 07/13/19 06:59 06:59 06:59 Intake Total 3559 755 1182 Output Total 850 Balance 3558 -95 1182 Result Diagrams: 07/12/19 10:15 07/11/19 19:33 Hospitalist ROS - Medication Medications: Active Medications Generic Name Dose Route Start Last Admin Trade Name Freq PRN Reason Stop Dose Admin Acetaminophen 650 mg 07/11/19 14:45 07/12/19 03:52 Tylenol PER TUBE 650 mg Q4H PRN Administration Headache/Fever/Mild Pain (1-3) Amiodarone HCl 200 mg 07/11/19 21:00 07/12/19 09:49 Cordarone PER TUBE 200 mg BID PUJA Administration Atorvastatin Calcium 40 mg 07/11/19 21:00 07/11/19 22:32 Lipitor PER TUBE 40 mg HS PUJA Administration Carvedilol 3.125 mg 07/11/19 21:00 07/12/19 09:49 Coreg PER TUBE 3.125 mg BID PUJA Administration Folic Acid 1 mg 07/12/19 09:00 07/12/19 09:49 Folvite PER TUBE 1 mg DAILY PUJA Administration Ondansetron HCl 4 mg 07/07/19 18:01 07/09/19 14:50 Zofran IVP 4 mg Q6H PRN Administration Nausea/Vomiting Sodium Chloride 10 ml 07/08/19 07:38 07/11/19 20:24 Flush - Normal Saline IVF 10 ml PRN PRN Administration Saline Flush Terazosin HCl 5 mg 07/11/19 21:00 07/12/19 09:49 Hytrin PER TUBE 5 mg BID PUJA Administration - Exam General Appearance: ill appearing Eye: PERRL, anicteric sclera ENT: no oropharyngeal lesions, moist mucosa Neck: supple, no JVD Heart: RRR, no murmur Respiratory: no wheezes, no rales Gastrointestinal: soft, non-distended, normal bowel sounds Gastrointestinal - other findings: peg+ Extremities: no cyanosis, no edema Neurological: hemiplegia Hosp A/P (1) Dysphagia Code(s): R13.10 - DYSPHAGIA, UNSPECIFIED Status: Acute (2) H/O: CVA (cerebrovascular accident) Code(s): Z86.73 - PRSNL HX OF TIA (TIA), AND CEREB INFRC W/O RESID DEFICITS Status: Chronic (3) FTT (failure to thrive) in adult Status: Acute (4) Symptomatic anemia Code(s): D64.9 - ANEMIA, UNSPECIFIED Status: Acute (5) Dyslipidemia Code(s): E78.5 - HYPERLIPIDEMIA, UNSPECIFIED Status: Chronic (6) Lung cancer Code(s): C34.90 - MALIGNANT NEOPLASM OF UNSP PART OF UNSP BRONCHUS OR LUNG Status: Chronic (7) PAF (paroxysmal atrial fibrillation) Code(s): I48.0 - PAROXYSMAL ATRIAL FIBRILLATION Status: Chronic (8) Acute kidney injury Code(s): N17.9 - ACUTE KIDNEY FAILURE, UNSPECIFIED Status: Resolved - Plan Recieved total of 3 u prbc this admission, is getting 2 more now. likely bm failure with chemo and malignancy, has retic count of 5 likely good bm response. peg feeding, will hold off eliquis due to severe anemia. continue amiodarone, lipitor, coreg, hytrin, folic acid Pallitative care consultation, ?code status, goals of care. 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 family prefer to take him home and not to rehab hospital bed, wheel chair for use at home has been arranged by CM. Family to learn peg tube care, PT to mobilize as tolerated palliative care, likely will need hospice if his bone marrow doesn't respond in 4-5 weeks with poor prognosis. I have informed family about above issue and are aware ( mentions he has expressed his wishes to at home not in hospital if it comes to that)
--- NOTE | 2019-07-12 19:16 | CT ---
CT OF THE ABDOMEN AND PELVIS WITHOUT IV CONTRAST INDICATION: Concern for retroperitoneal bleed COMPARISON: Prior noncontrast CT the abdomen and pelvis dated September 17, 2018 FINDINGS: This examination is limited for the evaluation of solid organs and vascular structures due to the lac k of intravenous contrast. ABDOMEN: Lung bases: Bibasilar atelectasis Liver: No focal lesion. Gallbladder: Normal appearing. Pancreas: Normal. Adrenal glands: Stable left adrenal adenoma measuring 1.7 cm. Right adrenal gland is normal-appearing . Spleen: Normal. Kidneys and ureters: Normal. No hydronephrosis. Vasculature: Moderate to severe atherosclerotic dilatation of the abdominal pelvic vasculature with p ostsurgical change of an aorto iliac bypass on the left. Lymph nodes:No lymphadenopathy. Free fluid in abdomen:No free fluid is evident. PELVIS: Small and large bowel: There is a percutaneous gastrostomy tube within the stomach which is new. Ther e is a mild amount retained stool within colon. Small bowel is of normal caliber. Appendix:Normal Bladder: [place] catheter within a decompressed bladder. Rectal and perirectal soft tissues:Normal. Reproductive structures: Normal. Free fluid in pelvis: No free fluid is evident. Lymphadenopathy pelvis: No lymphadenopathy is evident. Osseous structures: No acute osseous abnormality. No destructive osteolytic or osteoblastic lesion i s identified. There is scattered degenerative and osteoarthritic changes. Soft tissues:Normal. IMPRESSION: 1. No evidence of retroperitoneal hemorrhage.
--- NOTE | 2019-07-12 19:20 | PRG ---
DATE OF SERVICE: 07/12/2019 I was asked to see the patient by today. His PEG tube placed last Thursday. He is tolerating tube feeds. According to nurses, Dr. Davis had signed off. Apparently, he has dropped his hemoglobin again back down to the range of 4.9 after being up to 8.9. There has been no overt bleeding; although, this evening the patient's notes that he has had red urine. Blood pressure 107/54. LUNGS: Clear. ABDOMEN: Soft, mildly tender in the epigastrium. No rebound or guarding. LABORATORY DATA: White count 13, hemoglobin 6.9, and platelet count 53,000 with 16% bands. Stool Hemoccult negative. Ferritin 1050, iron 54, TIBC 273. Folate and B12 normal. ASSESSMENT: Recurrent anemia, likely multifactorial. He has had a negative Hemoccult. Last admission and this admission, there have been no signs or symptoms of GI bleeding such as melena, hematochezia, or hematemesis. In light of recent PEG tube placement, we will get a CAT scan and make sure there are no signs of bleeding related to that. I see no use for a bleeding scan as he is not having any overt GI bleeding. It may be reasonable to consider urologic source of bleeding looking at his urine. Job ID: [id number]
[2019-07-12] MEDS: Atorvastatin Calcium 40 MG TAB PER TUBE SCH (20:45)
[2019-07-12] MEDS ORDERED: Vancomycin HCl 500 MG in Sodium Chloride 0.9% 100 ML IVPB SCH (23:45)
[2019-07-13] MEDS ORDERED: Vancomycin HCl 1 GM in Premix Bag 1 BAG IVPB SCH (00:15)
[2019-07-13 05:21] LABS: Band 4 % (5-11); Hemoglobin 7.7 g/dL (14.0-18.0); Lymphocytes 6 % (21-51); MDiff Complete? YES; Mean Corpuscular HGB CONC 35.7 g/dL (32.0-36.0); Mean Corpuscular Hemoglobin 30.8 pg (27.0-31.0); Mean Corpuscular Volume 86.3 fL (78.0-98.0); Mean Platelet Volume 6.3 fL (7.4-10.4); Monocytes 6 % (0-10); Neutrophil 84 % (42-75); Nucleated RBC 1 % (0); Platelet Count 50 thou/uL (130-400); Platelet Morphology Comment Appears Decreased; Polychromasia SLIGHT = 2-3 cells (100X) (0-2/hpf); RBC Distribution Width 14.4 % (11.5-14.5); Red Blood Cell (RBC) Count 2.51 mill/uL (4.70-6.10); Schistocytes SLIGHT = 2-5 cells (100X) (0-1/hpf); White Blood Cell (WBC) Count 13.2 thou/uL (4.8-10.8)
[2019-07-13] MEDS: Amiodarone 200 MG TAB PER TUBE SCH ×2 (08:19→21:25)
[2019-07-13] MEDS: HYDROcodone/Acetaminophen 5/325 mg Tablet PO PRN ×2 (08:19→21:21)
[2019-07-13] MEDS: Carvedilol 3.125 MG TAB PER TUBE SCH ×2 (08:19→21:25)
[2019-07-13] MEDS: Folic Acid 1 MG TAB PER TUBE SCH (08:19)
[2019-07-13] MEDS: Terazosin HCl 5 MG CAP PER TUBE SCH ×2 (08:19→21:27)
[2019-07-13] MEDS: Vancomycin HCl 1 GM in Premix Bag 1 BAG IVPB SCH (13:11)
--- NOTE | 2019-07-13 14:13 | PDOC.HOSPP ---
- Subjective Encounter Date: 07/13/19 Encounter Time: 14:12 Subjective: The patients at the bedside, requesting to send to SNF in one two days - Objective Vital Signs & Weight: Vital Signs (12 hours) Temp Pulse Resp BP Pulse Ox 07/13/19 13:06 100.3 F H 87 18 126/62 100 07/13/19 08:00 98 07/13/19 07:45 96.8 F L 98 18 136/63 98 07/13/19 05:10 99.7 F H 07/13/19 03:51 100.9 F H 98 20 128/59 L 100 Weight Admit Weight 164 lb 4.8 oz Weight 164 lb 8 oz I&O: 07/12/19 07/13/19 07/14/19 06:59 06:59 06:59 Intake Total 755 2547 135 Output Total 850 1100 Balance -95 1447 135 Result Diagrams: 07/13/19 04:00 07/11/19 19:33 Hospitalist ROS - Medication Medications: Active Medications Generic Name Dose Route Start Last Admin Trade Name Freq PRN Reason Stop Dose Admin Acetaminophen 650 mg 07/11/19 14:45 07/12/19 03:52 Tylenol PER TUBE 650 mg Q4H PRN Administration Headache/Fever/Mild Pain (1-3) Hydrocodone Bitart/Acetaminophen 1 tab 07/12/19 11:44 07/13/19 08:19 [place] 5/325 PO 1 tab Q6H PRN Administration Moderate Pain (4-7) Amiodarone HCl 200 mg 07/11/19 21:00 07/13/19 08:19 Cordarone PER TUBE 200 mg BID PUJA Administration Atorvastatin Calcium 40 mg 07/11/19 21:00 07/12/19 20:45 Lipitor PER TUBE 40 mg HS PUJA Administration Carvedilol 3.125 mg 07/11/19 21:00 07/13/19 08:19 Coreg PER TUBE 3.125 mg BID PUJA Administration Folic Acid 1 mg 07/12/19 09:00 07/13/19 08:19 Folvite PER TUBE 1 mg DAILY PUJA Administration Vancomycin HCl 1 gm/ Device 200 mls @ 200 mls/hr 07/13/19 12:00 07/13/19 13: 11 IVPB 200 mls 1200,2359 PUJA Administration Ondansetron HCl 4 mg 07/07/19 18:01 07/09/19 14:50 Zofran IVP 4 mg Q6H PRN Administration Nausea/Vomiting Sodium Chloride 10 ml 07/08/19 07:38 07/11/19 20:24 Flush - Normal Saline IVF 10 ml PRN PRN Administration Saline Flush Terazosin HCl 5 mg 07/11/19 21:00 07/13/19 08:19 Hytrin PER TUBE 5 mg BID PUJA Administration - Exam General Appearance: NAD, awake alert, ill appearing Eye: PERRL, anicteric sclera, scleral icterus ENT: normocephalic atraumatic, no oropharyngeal lesions, moist mucosa, dry oral mucosa Neck: supple, symmetric, no JVD, no thyromegaly, no lymphadenopathy, no carotid bruit, JVD Heart: RRR, no murmur, no gallops, no rubs, normal peripheral pulses, irregular , diminshed peripheral pulses, murmur present, II/IV, III/IV Respiratory: CTAB, no wheezes, no rales, no ronchi, normal chest expansion, no tachypnea, normal percussion, rales, rhonchi, tachypneic, wheezes Gastrointestinal: soft, non-tender, non-distended, normal bowel sounds, no palpable masses, no hepatomegaly, no splenomegaly, no bruit, no guarding, no rigidity, tender to palpation, distended, diminished bowl sounds, voluntary guarding Extremities: no cyanosis, no clubbing, no edema, 1+ LE edema, 2+ LE edema, clubbing Skin: normal turgor, no lesions, no rashes, tenting Neurological: cranial nerve grossly intact, normal sensation to touch, no weakness, no focal deficits, no new deficit, facial droop, hemiplegia, speech deficit, vision deficit Musculoskeletal: normal tone, normal strength, no muscle wasting, generalized weakness, diffuse muscle atrophy Psychiatric: normal affect, normal behavior, A&O x 3, oriented to person, oriented to place, oriented to time, not oriented, flat affect, somnolent, lethargic Hosp A/P (1) Dysphagia Code(s): R13.10 - DYSPHAGIA, UNSPECIFIED Status: Acute - Plan plan discussed w/ family, PT/OT, clinical social worker, speech therapy (D/C planning to SNF in one to two days)
--- NOTE | 2019-07-13 14:33 | NM ---
ABDOMINAL BLEEDING SCAN: Date: 07/13/19 The patient was given 27 mCi of technetium labeled tagged red blood cells. Sequential images of the a bdomen obtained out to 1.5 hours. INDICATION: GI bleed. Assess for occult bleeding. FINDINGS: Blood flow images show normal vascular activity. No abnormal focus of activity seen in the abdomen on delayed images. IMPRESSION: Negative GI bleeding scan. POS: OFF
[2019-07-13] MEDS: Acetaminophen 325 MG TAB PER TUBE PRN ×2 (17:19→21:25)
[2019-07-13] MEDS: Atorvastatin Calcium 40 MG TAB PER TUBE SCH (21:24)
[2019-07-14] MEDS: Vancomycin HCl 1 GM in Premix Bag 1 BAG IVPB SCH ×2 (00:16→12:54)
[2019-07-14] MEDS: Acetaminophen 325 MG TAB PER TUBE PRN ×2 (04:43→08:32)
[2019-07-14] MEDS: HYDROcodone/Acetaminophen 5/325 mg Tablet PO PRN (08:33)
[2019-07-14] MEDS: Carvedilol 3.125 MG TAB PER TUBE SCH (08:34)
[2019-07-14] MEDS: Amiodarone 200 MG TAB PER TUBE SCH (08:34)
[2019-07-14] MEDS: Folic Acid 1 MG TAB PER TUBE SCH (08:34)
[2019-07-14] MEDS: Terazosin HCl 5 MG CAP PER TUBE SCH (08:34)
[2019-07-14 08:44] VITALS: BP 100/55
[2019-07-14] MEDS ORDERED: Potassium Chloride 20 MEQ TAB PO SCH (10:15)
[2019-07-14] MEDS ORDERED: Sodium Chloride 0.9% 1,000 ML IV SCH (10:15)
[2019-07-14 11:46] VITALS: TEMP 100
--- NOTE | 2019-07-14 16:55 | PRG ---
DATE OF SERVICE: 07/13/2019 SUBJECTIVE: Mr. Floyd has had no bleeding. He has had some hematuria. His CAT scan revealed no evidence of bleeding sites. A bleeding scan is pending for today. Tolerating tube feeds. OBJECTIVE: VITAL SIGNS: Temperature 98, pulse 100, respirations 22. ABDOMEN: Soft and nontender. LABORATORY DATA: White count 13.2, hemoglobin 7.7, platelet count is 50,000. No basic metabolic profile. Ferritin was 1050 on the 29th. Iron was 54. Folate was normal. B12 was normal. ASSESSMENT: 1. Anemia with no overt signs of gastrointestinal bleeding. CAT scan shows no evidence of intraabdominal retroperitoneal hematomas. The bleeding scan I suspect will be negative as he has had negative Hemoccult x2 and no overt bleeding from the gastrointestinal tract. He has had some hematuria, which has resolved. 2. Metastatic lung cancer. 3. Thrombocytopenia and anemia of unclear etiology. No signs of GI bleeding. We will sign off at this time. If I can be of any further assistance in the patient's care, please do not hesitate to contact me. Job ID: [id number]
== END 2019-07-14 17:10 | disposition hospice, home (50) | DRG 813 ==
LOC: 2NO 16:21 → OBSVTOIN 07-08 07:40 → ONC 07-08 20:28
PROVIDERS: ADMIT Internal Medicine; ATTEND Internal Medicine
PROC: 30233N1 Transfusion of Nonautologous Red Blood Cells into Peripheral Vein, Percutaneous Approach (ICD-10-PCS; 2019-07-08)
PROC: 3E02340 Introduction of Influenza Vaccine into Muscle, Percutaneous Approach (ICD-10-PCS; 2019-07-08)
PROC: 3E0234Z Introduction of Serum, Toxoid and Vaccine into Muscle, Percutaneous Approach (ICD-10-PCS; 2019-07-08)
PROC: 0DH63UZ Insertion of Feeding Device into Stomach, Percutaneous Approach (ICD-10-PCS; principal; 2019-07-09)
DX: D69.6 Thrombocytopenia, unspecified (principal); N17.9 Acute kidney failure, unspecified; I69.354 Hemiplegia and hemiparesis following cerebral infarction affecting left non-dominant side; I42.9 Cardiomyopathy, unspecified; D62 Acute posthemorrhagic anemia; C34.90 Malignant neoplasm of unspecified part of unspecified bronchus or lung; E46 Unspecified protein-calorie malnutrition; E44.0 Moderate protein-calorie malnutrition; I48.0 Paroxysmal atrial fibrillation; Z23 Encounter for immunization; Z51.5 Encounter for palliative care; E86.0 Dehydration; R62.7 Adult failure to thrive; I27.20 Pulmonary hypertension, unspecified; N40.0 Benign prostatic hyperplasia without lower urinary tract symptoms; K29.80 Duodenitis without bleeding; I10 Essential (primary) hypertension; E78.5 Hyperlipidemia, unspecified; I73.9 Peripheral vascular disease, unspecified; R31.9 Hematuria, unspecified; Z79.899 Other long term (current) drug therapy; Z79.01 Long term (current) use of anticoagulants; Z79.82 Long term (current) use of aspirin; Z88.5 Allergy status to narcotic agent; I69.391 Dysphagia following cerebral infarction; Z87.891 Personal history of nicotine dependence; Z68.22 Body mass index [BMI] 22.0-22.9, adult; Z95.1 Presence of aortocoronary bypass graft; M10.9 Gout, unspecified; I25.2 Old myocardial infarction; I25.10 Atherosclerotic heart disease of native coronary artery without angina pectoris
CPT/HCPCS: 36415; 36430; 71045; 74176; 78278; 80048; 80053; 80076; 80202; 81001; 82274; 82550; 82607; 82728; 82746; 83010; 83540; 83550; 83605; 83615; 83735; 85025; 85046; 86850; 86900; 86901; 87040; 87149; 90471; 90670; A9604; C9113; G0009; J0690; J1200; J2270; J2405; J2704; J3370; J7050; P9016; S0028